=== PATIENT | male | born 1940 | race Caucasian/White ===

== ENCOUNTER 2016-09-03 09:10 | Inpatient (IN) | payer OTHER ==
[2016-08-05 11:49] VITALS: BMI 33.0
--- NOTE | 2016-08-05 12:24 | PAT Medication Instructions ---
Service Date Aug 05, 2016. Current Home Medication List Ascorbic Acid (Vitamin C), 500 MG PO NOON Aspirin (Aspirin Ec), 81 MG PO BID Atorvastatin (Lipitor), 40 MG PO HS Biotin (Biotin), 1,000 MCG PO QAM Coenzyme Q10 (Ubidecarenone) (Co Q-10), 200 MG PO QAM Xzypzopkodw-Tteqvrmoise-Mjn C- (Glucosamine Chondroitin), Unknown Dose PO QAM Metoprolol Tartrate (Lopressor) (Lopressor), 0.5 TAB PO HS Multivitamin (Multivitamin), 0.5 TAB PO BID Nitroglycerin (Nitrostat), 0.4 MG UT PRN Potassium Chloride (Potassium Chloride ER), Unknown Dose PO AC Psyllium (Metamucil), Unknown Dose PO QAM Ranitidine (Zantac), 150 MG PO BID Terazosin Hcl (Hytrin), 2 MG PO HS Valsartan/Hctz (Diovan Hct 320MG/25MG), 1 TAB PO QAM Zinc Gluconate (Zinc), 1 TAB PO NOON Medication Instructions For Your Scheduled Surgery - Continue as directed: Nitroglycerin (Nitrostat), 0.4 MG UT PRN - Instructions to be given by Cardiology: Aspirin (Aspirin Ec), 81 MG PO BID (*Check with Cardiology if okay to change to ONCE daily 1 week prior to surgery per surgeon's request) - Hold the following medications 2 weeks prior to surgery: Biotin (Biotin), 1,000 MCG PO QAM Coenzyme Q10 (Ubidecarenone) (Co Q-10), 200 MG PO QAM Llahryvopyv-Sjfasetwcrt-Ouy C- (Glucosamine Chondroitin), Unknown Dose PO QAM - Hold the following medications the morning of surgery: Valsartan/Hctz (Diovan Hct 320MG/25MG), 1 TAB PO QAM Multivitamin (Multivitamin), 0.5 TAB PO BID Psyllium (Metamucil), Unknown Dose PO QAM Zinc Gluconate (Zinc), 1 TAB PO NOON Potassium Chloride (Potassium Chloride ER), Unknown Dose PO AC Ascorbic Acid (Vitamin C), 500 MG PO NOON - Take the following medications the morning of surgery with a sip of water OTHERWISE NOTHING TO EAT OR DRINK AFTER MIDNIGHT: Ranitidine (Zantac), 150 MG PO BID - Take the following medications as scheduled the night before surgery: Atorvastatin (Lipitor), 40 MG PO HS Terazosin Hcl (Hytrin), 2 MG PO HS Metoprolol Tartrate (Lopressor) (Lopressor), 0.5 TAB PO HS Ranitidine (Zantac), 150 MG PO BID Multivitamin (Multivitamin), 0.5 TAB PO BID If you have any questions please call us at [phone] (Aurelia Alvarado PA-C) or [phone] or [phone]
[2016-08-05 12:41] LABS: BASO % 0.4 %; BASO ABS # 0.02 K/uL (0-0.2); COMPLETE YES; EOS % 4.6 %; HEMATOCRIT 40.6 % (42-52); IG% 0.2 %; LYMPH % 20.9 %; LYMPH ABS # 1.14 K/uL (1.2-3.4); MEAN CELL VOLUME 90.2 fL (80-100); MEAN CORPUSCULAR HEMOGLOBIN 31.3 pg (25-34); MEAN CORPUSCULAR HGB CONC 34.7 g/dl (32-36); MONO % 7.9 %; PLATELET COUNT 180 K/uL (130-400); WHITE BLOOD COUNT 5.45 K/uL (4.8-10.8)
[2016-08-05 12:45] LABS: URINE APPEARANCE CLEAR (CLEAR); URINE BILIRUBIN NEG (NEG); URINE COLOR YELLOW; URINE NITRITE NEG (NEG); URINE PH 6.5 (4.5-7.5); URINE SPECIFIC GRAVITY 1.004 (1.000-1.030); UROBILINOGEN NEG (NEG)
[2016-08-05 12:47] LABS: MANUAL MICROSCOPIC REQUIRED? NO; REVIEW REQ? NO
[2016-08-05 12:52] LABS: ESTIMATED AVERAGE GLUCOSE 128 mg/dl; HA1C FLAG Normal (Normal)
[2016-08-05 13:03] LABS: PARTIAL THROMBOPLASTIN RATIO 1.1; PROTHROMBIN TIME (PATIENT) 10.8 SECONDS (9.0-12.0)
[2016-08-05 13:24] LABS: BUN/CREATININE RATIO 14.6 (10-20); CREATININE 0.91 mg/dl (0.60-1.40); POTASSIUM 3.9 mmol/L (3.5-5.1)
[2016-08-05 13:37] LABS: CALCIUM 9.2 mg/dl (8.5-10.1)
--- NOTE | 2016-09-02 20:17 | HISTORY & PHYSICAL EXAMINATION ---
DATE OF ADMISSION: 09/03/2016 CHIEF COMPLAINT: Right knee pain. HISTORY OF PRESENT ILLNESS: The patient is a 75-year-old gentleman with known osteoarthritis about his right knee. He has had previous corticosteroid injections. He continues to have ongoing pain and disability with activities of daily living. He has pain with prolonged weightbearing and standing activities. He has difficulty kneeling, bending, or squatting activities. He now desires to proceed with right total knee arthroplasty. PAST MEDICAL HISTORY: Hypertension, hypercholesterolemia, coronary artery disease status post CABG, sleep apnea with CPAP use, questionable stroke or TIA related to his CABG procedure, skin cancer, status post Mohs surgery, acid reflux. PAST SURGICAL HISTORY: Tonsillectomy, appendectomy, vasectomy, 4-vessel CABG, meniscus surgery. MEDICATIONS: Lipitor 40 mg daily, Diovan HCT 320-25 daily, ranitidine 150 mg 2 times daily, metoprolol tartrate 25 mg 2 times daily, terazosin 5 mg daily, potassium citrate ER 10 mEq 2 times daily, CoQ10 daily, aspirin 81 mg daily, Centrum Silver daily, zinc 50 mg daily, vitamin C 500 mg daily, glucosamine daily, fish oil 300 mg 4 daily. ALLERGIES: ANTIVENOM, WHICH CAUSES HIVES. SOCIAL HISTORY AND REVIEW OF SYSTEMS: Noncontributory. PHYSICAL EXAMINATION: GENERAL: Well-nourished, well-developed male who appears stated age. HEENT: Normocephalic, atraumatic, extraocular movements intact, oropharynx pink and moist. NECK: Supple without adenopathy. LUNGS: Clear to auscultation bilaterally. HEART: Regular rate and rhythm. ABDOMEN: Soft, nontender, nondistended. EXTREMITIES: The upper extremity within normal limits. The right knee has a varus alignment. He has range of motion from 0-120 degrees. He has mild crepitus with range of motion. X-RAYS: X-rays were reviewed. He has a varus aligned knee. He has bone on bone arthritis of the medial compartment with complete loss of the joint space. He has mild degenerative change about the patellofemoral joint as well. ASSESSMENT: Right knee degenerative joint disease. PLAN: Risks versus benefits were discussed. Consent was obtained. The patient's primary care physician, Dr. Tarango from [facility] in [place]. His four slide machine operator is Dr. Alex Mayes. We will proceed with right total knee arthroplasty upon preoperative workup and medical clearance. BC
[2016-09-03] VITALS (8 sets, daily range): BP systolic 110–164; BP diastolic 64–92; PULSE 56–76; TEMP 36.4–36.7; O2SAT 91–97; Ht 182.9 cm; Wt 110.7 kg
[~2016-09-03] VITALS: Ht 182.9 cm; Wt 110.7 kg
[~2016-09-03 09:10] MED LIST: ACETAMINOPHEN 500 MG TAB PO SCH; ASCA500 PO; ASPI81TA28 PO; ATOR-24 PO; BIOT50006 PO; BUPIVACAINE 0.25% 30 ML VIAL ONE; BUPIVACAINE 0.5 % 5 MG/1 ML PF 10ML VIAL ONE; CEFAZOLIN 2000 MG/60 ML D5W IV SCH; COEN75CA PO; CeleBREX 200 MG CAP PO SCH; DEXAMETHASONE 4 MG TAB PO SCH; FAMOTIDINE 20 MG TAB PO SCH; GABAPENTIN 300 MG CAP PO SCH; GLUC1CAP35 PO; HYT/2 PO; LACTATED RINGER'S 1000ML IV SCH; METO25TA56 PO; METOCLOPRAMIDE HCL 10 MG TAB PO SCH; MULT-506 PO; NTRGSL/4 UT; OXYCODONE HCL 10 MG TABCR (OXYCONTIN) PO SCH; POTA-65 PO; PSYL1POW4 PO; ROPIVACAINE 5MG/ML 30 ML 150 MG, BUPIVACAINE/EPINEPHR 0.5% MPF 30 ML, KETOROLAC TROMETH... INFIL SCH; VALS320T2 PO; ZINC1TAB PO; ZNTT/150 PO
--- NOTE | 2016-09-03 09:39 | History & Physical Bridge Note ---
H&P Re-Evaluation Bridge Note: I have examined the patient, reviewed the History & Physical and in the interval since the performance of the History & Physical I have noted the following changes of clinical significance: No changes noted
[2016-09-03] MEDS ORDERED: LIDOCAINE HCL 2% 2 ML VIAL (20MG/ML) ONE (09:46)
[2016-09-03] MEDS ORDERED: FENTANYL CITRATE INJ 50 MCG/1 ML 2 ML VIAL ONE (09:46)
[2016-09-03] MEDS ORDERED: PROPOFOL IV EMULSION 10 MG/ML 20 ML VIAL IV ONE (09:46)
[2016-09-03] MEDS ORDERED: MIDAZOLAM HCL 1 MG/ML 2ML VIAL ONE (09:46)
[2016-09-03] MEDS ORDERED: ORTHO JOINT ANESTHETIC ONE (10:03)
[2016-09-03] MEDS ORDERED: EpHEDrine SULFATE INJ 50 MG/ML AMP ONE (10:54)
[2016-09-03] MEDS ORDERED: LACTATED RINGER'S 1000ML 1,000 ML IV PRN (11:03)
[2016-09-03] MEDS ORDERED: BACITRACIN 50000 UNIT VIAL IR ONE (11:13)
[2016-09-03] MEDS ORDERED: POVIDONE-IODINE OP SOLN 30 ML BTL TOP ONE (11:13)
[2016-09-03] MEDS ORDERED: FENTANYL CITRATE INJ 50 MCG/1 ML 2 ML VIAL IV PRN (11:15)
[2016-09-03] MEDS ORDERED: ONDANSETRON INJ 2 MG/ML 2 ML VIAL IV PRN ×2 (11:15→12:30)
[2016-09-03] MEDS ORDERED: NITROGLYCERIN 0.4 MG SL PER TAB CHARGE UT PRN (12:30)
[2016-09-03] MEDS ORDERED: MAGNESIUM HYDROXIDE SUSP 30 ML UDC PO PRN (12:30)
[2016-09-03] MEDS ORDERED: BISACODYL 10 MG SUPP PR PRN (12:30)
[2016-09-03] MEDS ORDERED: DiphenhydrAMINE HCL 50 MG/ML VIAL IV PRN (12:30)
[2016-09-03] MEDS ORDERED: MoRPHine SULFATE 2 MG/ML CARP IV PRN (12:30)
[2016-09-03] MEDS ORDERED: ZOLPIDEM TARTRATE 5 MG TAB PO PRN (12:30)
[2016-09-03] MEDS ORDERED: ALUMINUM/MAGNESIUM/SIMETH (MAALOX MAX) 30 ML UDC PO PRN (12:30)
--- NOTE | 2016-09-03 12:37 | OPERATIVE REPORT ---
DATE OF OPERATION: 09/03/2016 PREOPERATIVE DIAGNOSIS: Osteoarthritis right knee. POSTOPERATIVE DIAGNOSIS: Osteoarthritis right knee. PROCEDURE: OrthAlign right total knee arthroplasty. SURGEON: Dr. Ravi. SHEET ROCK NAILER: El Martinez PA-C. ANESTHESIA: Spinal. COMPLICATIONS: None. OPERATION AND FINDINGS: Following induction of spinal anesthesia, the patient's right leg was prepped and draped in usual sterile manner. Limb was exsanguinated with an Esmarch bandage and tourniquet was inflated to 300 mmHg. Longitudinal incision was made. Subcutaneous tissue was sharply dissected. Electrocautery was used for hemostasis. Aquamantys was used for hemostasis throughout the case. Median parapatellar incision was made. Patella was everted and the knee was flexed. Fat pad was removed and the anterior and posterior cruciate ligaments were removed. A Bovie was used to subperiosteally elevate the medial periosteum from the tibial metaphysis and this was held posteriorly using a blunt Hohmann. The OrthAlign computer guide was pinned to the anterior aspect of the tibia and it was set in flexion and extension and varus valgus. The proximal cut was made and the guide was removed. This bone fragment was removed using a bone tenaculum, sharp Hohmann, wide osteotome and a knife. Next, attention was turned to the femur where a drill tipped pin was placed in the femoral canal. The femoral cutting guide was placed and the computers were attached and appropriate flexion and varus valgus adjustments were made. The computers were removed after the baseplate was pinned into position and the distal femoral cut was made. Femur was chosen size 6 to be used and the femoral cuts were made. Bone fragments were all removed and the notch was cut using the appropriate guide and the osteotome. This bone fragment was removed. Lamina order entry was used to expose the menisci which were removed sharply. Next, the tibia was subluxed anteriorly and a size 5 tibia was chosen as the size to be used and it was pinned into position and was well aligned. A trial reduction was carried out and a size 11 poly was chosen as the size to be used. This was done after preparing the tibia to accept the tibial stem. Following this, the knee was brought to extension and the patella was reamed. A 39 patella was chosen the size to be used. The patella had no tendency to sublux with the no thumbs test. All trial components were removed. Orthomix was injected pericapsularly throughout the knee and the knee was thoroughly irrigated with pulsatile irrigation. Final components were obtained. Cement was mixed and after mixing the cement and drying of all bone ends the cementation of the implant was carried out. Excess cement was removed. The knee was held in extension while cement hardened. The wound was irrigated with both dilute Betadine bath as well as pulsatile irrigation and the wound was closed over a Hemovac. Accessory mechanism was closed using #1 Vicryl, subcutaneous tissue was closed using 0 Dexon was closed with bev. Sterile dressing of Adaptic, 4x4s, sterile Webril and double length Timothy was applied. The patient tolerated the procedure well. I attest to the content of the Intraoperative Record and any orders documented therein. Any exceptio ns are noted below.
--- NOTE | 2016-09-03 13:01 | DIAGNOSTIC IMAGING REPORT ---
RIGHT KNEE 2 VIEWS History: Right total knee arthroplasty. Degenerative arthritis. Postop. FINDINGS: The patient is status post a right total knee arthroplasty. The hardware is intact. No fracture or dislocation. Skin bev and surgical drains are in place. There is a 4 mm radiopaque metallic foreign body within the suprapatellar soft tissues. IMPRESSION: Right total knee arthroplasty. There is a 4 mm radiopaque metallic foreign body within the suprapatellar soft tissues. Electronically signed by: Celso Carlos M.D. 09/03/2016 12:59 PM
[2016-09-03] MEDS ORDERED: MoRPHine SULFATE 4 MG/ML 1 ML CARP\\VIAL IV PRN (14:00)
[2016-09-03] MEDS ORDERED: MoRPHine SULFATE 10 MG/ML CARP/VIAL IV PRN (14:00)
--- NOTE | 2016-09-03 14:32 | Anesthesiology Progress Note ---
Anesthesia Post Op Note Date & Time Sep 03, 2016 at 14:31 Vital Signs Pain Intensity: 0.0 Vital Signs Past 12 Hours Date Time Temp Pulse Resp B/P Pulse Ox O2 Delivery O2 Flow Rate FiO2 09/03/16 14:15 66 16 160/84 97 Nasal Cannula 3.0 09/03/16 13:43 56 16 151/86 96 Nasal Cannula 3.0 09/03/16 13:15 Nasal Cannula 2.0 09/03/16 13:15 36.4 66 16 154/73 97 Nasal Cannula 2.0 09/03/16 13:15 Nasal Cannula 2.0 09/03/16 12:55 36.4 58 16 134/81 97 Nasal Cannula 2 09/03/16 12:45 36.4 58 16 136/77 97 Nasal Cannula 2 09/03/16 12:35 58 16 129/73 96 Nasal Cannula 2 09/03/16 12:26 70 16 109/69 96 Nasal Cannula 2 09/03/16 12:18 36.7 62 16 108/62 98 Mask 10 09/03/16 09:38 36.6 65 20 164/90 92 Room Air Notes Mental Status: alert / awake / arousable, participated in evaluation Pt Amnestic to Procedure: Yes Nausea / Vomiting: adequately controlled Pain: adequately controlled Airway Patency, RR, SpO2: stable & adequate BP & HR: stable & adequate Hydration State: stable & adequate Neuraxial Anesthesia: was administered, sensory block is resolving Anesthetic Complications: no major complications apparent
[2016-09-03] MEDS: D5W AND 1/2NSS + 20MEQ KCL 1,000 ML IV SCH ×2 (14:35→20:38)
[2016-09-03] MEDS ORDERED: METO1TAB31 PO (14:39)
[2016-09-03] MEDS ORDERED: COEN1TAB3 PO (14:39)
[2016-09-03] MEDS ORDERED: NZRCR EXT (14:39)
[2016-09-03] MEDS ORDERED: GLUCTAB7 PO (14:39)
[2016-09-03] MEDS ORDERED: POTA20TA16 PO ×2 (14:39)
--- NOTE | 2016-09-03 15:01 | Medical Consult ---
Consultation Date of Consultation: Sep 03, 2016. Attending Physician: Butch Ravi M.D. Reason for Consultation: Postop medical management History of Present Illness Patient seen and examined with family at bedside. Pt is a 75 y/o male with PMH of CAD s/p CABG x4 in 2007 complicated by CVA without residual deficit, atrial flutter s/p cardioversion with resolution, HTN, HL, PEGGY on CPAP, GERD, who underwent planned right knee arthroplasty by Dr. Ravi today. Patient had longstanding R knee pain which failed conservative management including injections. He is feeling comfortable currently with postop pain controlled. Denies fever, dizziness, chest pain, SOB, abdominal pain, nausea, vomiting, recent urinary issues. He did not eat yet but is hungry and ready to eat. Past Medical/Surgical History Medical Problems: (1) Atrial flutter Permanent Comment: resolved s/p cardioversion Status: Chronic (2) CAD (coronary artery disease) Status: Chronic (3) Dyslipidemia Status: Chronic (4) GERD (gastroesophageal reflux disease) Status: Chronic (5) History of CVA (cerebrovascular accident) Permanent Comment: postop from CABG in 2007; no residual deficit Status: Chronic (6) HTN (hypertension) Status: Chronic (7) Lung nodule Status: Chronic (8) PEGGY (obstructive sleep apnea) Permanent Comment: on CPAP Status: Chronic Surgical Problems: (1) H/O vasectomy Status: Chronic (2) S/P appendectomy Status: Chronic (3) S/P CABG x 4 Permanent Comment: 2007 Status: Chronic (4) S/P carpal tunnel release Status: Chronic (5) S/P right knee arthroscopy Status: Chronic (6) S/P tonsillectomy and adenoidectomy Status: Chronic Family History Diabetes mellitus MOTHER FH: CAD (coronary artery disease) FATHER MOTHER Social History Smoking Status: Former Smoker (quit in ) Alcohol Use: occasionally (occasional 1 glass of wine) Marital Status: Housing Status: lives with significant other Allergies Coded Allergies: Antivenin Crotalidae Polyvalent (Verified Allergy, Unknown, HIVES, 09/03/16) "SNAKE ANTIVENIN" Home Medications Active Reported Ketoconazole 45 Appln/15 Gm Cr 1 Appln EXT BID PRN Klor-Con (Potassium Chloride) 20 Meq Tabcr 30 Meq PO BIDM Toprol Xl (Metoprolol Succinate) 25 Mg Tab 12.5 Mg PO HS 30 Days Glucosamine Chondroitin (Lysxmeuqvcn-Jvfbcpltrob-Xgb C-) 1 Tab Tab 500 Mg PO DAILY Coenzyme Q10 (Coenzyme Q10 (Ubidecarenone)) 100 Mg Tab 100 Mg PO DAILY Biotin 5,000 Mcg Sub 1,000 Mcg PO QAM Vitamin C (Ascorbic Acid) 500 Mg Tab 500 Mg PO DAILY Metamucil (Psyllium) Unknown Strength Pow 0.52 Gm PO QAM MIXES WITH 8 OZ GLASS OF H20 Multivitamin (Multivitamins) Tab 1 Tab PO DAILY Aspirin Ec (Aspirin) 81 Mg Tab 81 Mg PO BID Zinc (Zinc Gluconate) 50 Mg Tab 1 Tab PO DAILY Hytrin (Terazosin HCl) 2 Mg Cap 2 Mg PO HS Nitrostat (Nitroglycerin) 0.4 Mg Tab 0.4 Mg UT PRN Zantac (Ranitidine HCl) 150 Mg Tab 150 Mg PO BID Diovan Hct 320MG/25MG (HCTZ/Valsartan) 1 Tab Tab 1 Tab PO QAM Lipitor (Atorvastatin Calcium) 40 Mg Tab 40 Mg PO HS Current Inpatient Medications Current Inpatient Medications Medications (Trade) Dose Ordered Sig/Jazzy Route Start Time Stop Time Status Last Admin Dose Admin Cefazolin Sodium 60 ml @ 100 mls/hr PREOP IV 09/03/16 06:00 09/03/16 18:00 09/03/16 10:43 100 MLS/HR Lactated Ringer's (Lr 1000ml) 1,000 ml @ 60 mls/hr [id number] IV 09/03/16 06:00 09/03/16 22:39 09/03/16 09:47 60 MLS/HR Acetaminophen (Tylenol Tab) 1,000 mg PREOP PO 09/03/16 06:00 09/03/16 18:00 09/03/16 10:04 1,000 MG Celecoxib (CeleBREX CAP) 200 mg PREOP PO 09/03/16 06:00 09/03/16 18:00 09/03/16 10:04 200 MG Dexamethasone (Decadron Tab) 8 mg PREOP PO 09/03/16 06:00 09/03/16 18:00 09/03/16 10:03 8 MG Famotidine (Pepcid Tab) 20 mg PREOP PO 09/03/16 06:00 09/03/16 18:00 09/03/16 10:03 20 MG Gabapentin (Neurontin Cap) 300 mg PREOP PO 09/03/16 06:00 09/03/16 18:00 09/03/16 10:03 300 MG Metoclopramide HCl (Reglan Tab) 10 mg PREOP PO 09/03/16 06:00 09/03/16 18:00 09/03/16 10:03 10 MG Oxycodone HCl (Oxycontin Tab) 10 mg PREOP PO 09/03/16 06:00 09/03/16 18:00 09/03/16 10:04 10 MG Fentanyl Citrate (Fentanyl Inj) 25 mcg Q5M PRN IV 09/03/16 11:15 09/03/16 16:15 Ondansetron HCl 4 mg 4 mg ONE PRN IV 09/03/16 11:15 09/03/16 16:15 Lactated Ringer's (Lr 1000ml) 1,000 ml @ 150 mls/hr Q6H40M PRN IV 09/03/16 11:03 09/03/16 16:03 Atorvastatin Calcium (Lipitor Tab) 40 mg HS PO 09/03/16 21:00 10/03/16 20:59 Metoprolol Tartrate (Lopressor Tab) 12.5 mg HS PO 09/03/16 21:00 10/03/16 20:59 Nitroglycerin (Nitrostat Tab) 0.4 mg PRN PRN UT 09/03/16 12:30 10/03/16 12:29 Ranitidine HCl (zANTac TAB) 150 mg BID PO 09/03/16 21:00 10/03/16 20:59 Terazosin HCl (Hytrin Cap) 2 mg HS PO 09/03/16 21:00 10/03/16 20:59 HCTZ/Valsartan (Diovan Hct 160/ 12.5MG Tab) 1 tab QAM PO 09/04/16 09:00 10/04/16 08:59 Morphine Sulfate 2 mg 2 mg Q4HWA PRN IV 09/03/16 12:30 09/17/16 12:29 Potassium Chloride/Dextrose/ Sod Cl 1,000 ml @ 100 mls/hr Q10H IV 09/03/16 12:19 09/04/16 12:18 09/03/16 14:35 100 MLS/HR Cefazolin Sodium/ Dextrose (Ancef Iv/D5 50ml) 60 ml @ 100 mls/hr Q8H IV 09/03/16 18:00 09/04/16 02:35 Ketorolac Tromethamine (Toradol Inj) 15 mg Q6H IV. 09/03/16 18:00 09/04/16 17:59 Oxycodone HCl (Roxicodone Immediate Rel Tab) 1 TABLET FOR PAIN RATING... Q4H PRN PO 09/03/16 12:30 09/17/16 12:29 Oxycodone HCl (Oxycontin Tab) 10 mg Q12 PO 09/03/16 21:00 09/17/16 20:59 Acetaminophen (Tylenol Tab) 1,000 mg Q8H PO 09/03/16 14:00 10/03/16 13:59 Magnesium Hydroxide (Milk Of Magnesia Susp) 30 ml Q6H PRN PO 09/03/16 12:30 10/03/16 12:29 Bisacodyl (Dulcolax Supp) 10 mg DAILY PRN AK 09/03/16 12:30 10/03/16 12:29 Senna (Senokot Tab) 17.2 mg HS PO 09/03/16 21:00 10/03/16 20:59 Docusate Sodium (coLACE CAP) 100 mg BID PO 09/03/16 21:00 10/03/16 20:59 Diphenhydramine HCl (Benadryl Inj) 25 mg Q8H PRN IV 09/03/16 12:30 10/03/16 12:29 Al Hydrox/Mg Hydrox/Simethicone (Maalox Max Susp) 15 ml Q4H PRN PO 09/03/16 12:30 10/03/16 12:29 Zolpidem Tartrate (Ambien Tab) 5 mg HSZ PRN PO 09/03/16 12:30 10/03/16 12:29 Multivitamins (Multivitamin Tab) 1 tab QAM PO 09/04/16 09:00 10/04/16 08:59 Ondansetron HCl (Zofran Inj) 4 mg Q6H PRN IV 09/03/16 12:30 10/03/16 12:29 Ferrous Gluconate (Ferrous Gluconate Tab) 324 mg TIDM PO 09/03/16 17:45 10/03/16 17:59 Aspirin (Ecotrin Tab) 81 mg BID PO 09/03/16 21:00 10/03/16 20:59 Morphine Sulfate (MoRPHine SULFATE INJ) 4 mg Q4HWA PRN IV 09/03/16 14:00 09/17/16 13:59 Morphine Sulfate (MoRPHine SULFATE INJ) 6 mg Q4HWA PRN IV 09/03/16 14:00 09/17/16 13:59 Review of Systems Ten point review of systems performed with pertinent positives and negatives in HPI. All other systems negative. Physical Exam Date Time Temp Pulse Resp B/P Pulse Ox O2 Delivery O2 Flow Rate FiO2 09/03/16 14:15 66 16 160/84 97 Nasal Cannula 3.0 09/03/16 13:43 56 16 151/86 96 Nasal Cannula 3.0 09/03/16 13:15 Nasal Cannula 2.0 09/03/16 13:15 36.4 66 16 154/73 97 Nasal Cannula 2.0 09/03/16 13:15 Nasal Cannula 2.0 09/03/16 12:55 36.4 58 16 134/81 97 Nasal Cannula 2 09/03/16 12:45 36.4 58 16 136/77 97 Nasal Cannula 2 09/03/16 12:35 58 16 129/73 96 Nasal Cannula 2 09/03/16 12:26 70 16 109/69 96 Nasal Cannula 2 09/03/16 12:18 36.7 62 16 108/62 98 Mask 10 09/03/16 09:38 36.6 65 20 164/90 92 Room Air General Appearance: WD/WN, no apparent distress, + pertinent finding (pleasant alert cooperative 75 year old male, lying in bed, family at bedside) Head: normocephalic, atraumatic Eyes: normal inspection, sclerae normal ENT: hearing grossly normal Neck: supple, trachea midline Respiratory/Chest: lungs clear, normal breath sounds, no respiratory distress, no accessory muscle use Cardiovascular: regular rate, rhythm, no murmur Abdomen/GI: normal bowel sounds, non tender, soft Extremities/Musculoskelatal: no calf tenderness, no pedal edema, + pertinent finding (s/p right TKA with dressing and ice pack in place, drain with sanguinous drainage) Neurologic/Psych: alert, normal mood/affect, oriented x 3, + pertinent finding (sensation to light touch intact bilateral feet. able to flex/ extend ankles bilaterally) Skin: normal color, warm/dry Assessment & Plan S/P RIGHT TKA POD #[address] Ravi Doing well postoperatively Monitor daily H/H for sign of acute blood loss anemia Pain control and bowel regimen per ortho Continue incentive spirometry PT/ OT CAD S/P CABG Stable, no anginal symptoms Had neg stress test in 10/2015 done for preop clearance Continue beta desmond and statin Resume aspirin when acceptable by ortho HYPERTENSION BP is stable Continue metoprolol, terazosin, and valsartan Hold HCTZ while being hydrated with IVF's HISTORY OF AFLUTTER Resolved s/p cardioversion HX OF CVA No residual deficit Continue statin Resume ASA when acceptable by ortho PEGGY May use home CPAP GERD Continue Zantac DVT PROPHYLAXIS Per ortho Patient seen in collaboration with Dr. Mcgarry. Please see his addendum.
[2016-09-03] MEDS: OXYCODONE HCL IR 5 MG TAB (IMMEDIATE RELEASE) PO PRN (15:41)
[2016-09-03] MEDS: ACETAMINOPHEN 500 MG TAB PO SCH ×2 (15:41→23:06)
[2016-09-03] MEDS: FERROUS GLUCONATE 324 MG TAB PO SCH (17:56)
[2016-09-03] MEDS: CEFAZOLIN IV 2,000 MG in DEXTROSE 5% 50ML 50 ML IV SCH (17:57)
[2016-09-03] MEDS: POTASSIUM CHLORIDE 10 MEQ TABCR PO SCH (17:58)
[2016-09-03] MEDS: KETOROLAC TROMETHAMINE 15 MG/ML VIAL IV. SCH ×2 (17:58→23:06)
[2016-09-03] MEDS: RANITIDINE HCL 150 MG TAB PO SCH (20:39)
[2016-09-03] MEDS: OXYCODONE HCL 10 MG TABCR (OXYCONTIN) PO SCH (20:39)
[2016-09-03] MEDS: ASPIRIN 81 MG ECTAB PO SCH (20:39)
[2016-09-03] MEDS: METOPROLOL SUCC 25MG EXT REL TAB PO SCH (20:40)
[2016-09-03] MEDS: DOCUSATE SODIUM 100 MG CAP PO SCH (20:40)
[2016-09-03] MEDS: ATORVASTATIN 20 MG TAB PO SCH (20:41)
[2016-09-03] MEDS: SENNA 8.6 MG TAB PO SCH (20:41)
[2016-09-03] MEDS ORDERED: METOPROLOL TARTRATE 25 MG TAB PO SCH (21:00)
[2016-09-04] VITALS (8 sets, daily range): BP systolic 69–129; BP diastolic 41–80; PULSE 59–106; TEMP 36.3–36.5; O2SAT 92–98
[2016-09-04] MEDS: CEFAZOLIN IV 2,000 MG in DEXTROSE 5% 50ML 50 ML IV SCH (01:58)
[2016-09-04] MEDS: ACETAMINOPHEN 500 MG TAB PO SCH ×3 (05:47→20:54)
[2016-09-04] MEDS: KETOROLAC TROMETHAMINE 15 MG/ML VIAL IV. SCH ×2 (05:48→12:45)
[2016-09-04 06:41] LABS: MEAN CELL VOLUME 89.1 fL (80-100); MEAN CORPUSCULAR HEMOGLOBIN 30.6 pg (25-34); MEAN CORPUSCULAR HGB CONC 34.4 g/dl (32-36); MEAN PLATELET VOLUME 9.4 fL (7.4-10.4); PLATELET COUNT 169 K/uL (130-400); RED BLOOD COUNT 3.59 M/uL (4.7-6.1); WHITE BLOOD COUNT 10.71 K/uL (4.8-10.8)
[2016-09-04 07:24] LABS: BUN/CREATININE RATIO 16.3 (10-20); CALCIUM 8.2 mg/dl (8.5-10.1); CREATININE 1.3 mg/dl (0.60-1.40); POTASSIUM 4.5 mmol/L (3.5-5.1)
--- NOTE | 2016-09-04 07:36 | Orthopedic Progress Note ---
Orthopedic Progress Note Date of Service Sep 04, 2016. Subjective Post OP Day: 1 Reports: feeling well Objective N/V intact, dressing C/D/I (Hemovac in place), toes mobile Date Time Temp Pulse Resp B/P Pulse Ox O2 Delivery O2 Flow Rate FiO2 09/04/16 03:22 36.5 59 14 115/69 92 BiPAP 09/03/16 23:03 36.7 70 14 110/64 91 BiPAP 09/03/16 23:00 CPAP 09/03/16 19:33 36.4 76 16 155/80 91 Room Air 09/03/16 19:15 Room Air 09/03/16 16:16 36.4 72 16 163/92 93 Nasal Cannula 3.0 09/03/16 15:04 36.6 71 16 159/76 95 Nasal Cannula 3.0 09/03/16 14:55 Nasal Cannula 2.0 09/03/16 14:15 66 16 160/84 97 Nasal Cannula 3.0 09/03/16 13:43 56 16 151/86 96 Nasal Cannula 3.0 09/03/16 13:15 Nasal Cannula 2.0 09/03/16 13:15 36.4 66 16 154/73 97 Nasal Cannula 2.0 09/03/16 13:15 Nasal Cannula 2.0 09/03/16 12:55 36.4 58 16 134/81 97 Nasal Cannula 2 09/03/16 12:45 36.4 58 16 136/77 97 Nasal Cannula 2 09/03/16 12:35 58 16 129/73 96 Nasal Cannula 2 09/03/16 12:26 70 16 109/69 96 Nasal Cannula 2 09/03/16 12:18 36.7 62 16 108/62 98 Mask 10 09/03/16 09:38 36.6 65 20 164/90 92 Room Air Laboratory Results 24 Hours: Test 09/04/16 05:05 Hematocrit 32.0 % Hemoglobin 11.0 g/dL Assessment & Plan Assessment: 75 yo male stable POD #1 s/p right TKA Plan: 1. Med management 2. DVT prophylaxis- ASA, TEDs, SCDs 3. PT/OT 4. D/C planning- home w/ OPPT
[2016-09-04] MEDS: GLUCOSAMINE SULFATE 500 MG CAP PO SCH (08:40)
[2016-09-04] MEDS: FERROUS GLUCONATE 324 MG TAB PO SCH ×3 (08:40→17:52)
[2016-09-04] MEDS: RANITIDINE HCL 150 MG TAB PO SCH ×2 (08:40→20:52)
[2016-09-04] MEDS: ASCORBIC ACID 500 MG TAB PO SCH (08:41)
[2016-09-04] MEDS: VALSARTAN 80 MG TAB PO SCH (08:41)
[2016-09-04] MEDS: POTASSIUM CHLORIDE 10 MEQ TABCR PO SCH ×2 (08:41→17:53)
[2016-09-04] MEDS: DOCUSATE SODIUM 100 MG CAP PO SCH ×2 (08:42→20:51)
[2016-09-04] MEDS: MULTIVITAMIN TAB PO SCH (08:42)
[2016-09-04] MEDS: OXYCODONE HCL 10 MG TABCR (OXYCONTIN) PO SCH ×2 (08:50→20:53)
[2016-09-04] MEDS: OXYCODONE HCL IR 5 MG TAB (IMMEDIATE RELEASE) PO PRN ×2 (08:51→20:53)
[2016-09-04] MEDS ORDERED: NON-FORMULARY MEDICATION (Coenzyme Q10 (Ubidecarenone) (Co Q-10) 200 MG) PO SCH (09:00)
[2016-09-04] MEDS ORDERED: COENZYME Q10 100 MG PO SCH (09:00)
[2016-09-04] MEDS ORDERED: VALSARTAN/HCTZ 160/12.5 MG TAB PO SCH (09:00)
[2016-09-04] MEDS ORDERED: ZINC GLUCONATE PO SCH (09:00)
[2016-09-04] MEDS ORDERED: MULTIVITAMIN TAB PO SCH (09:00)
[2016-09-04] MEDS ORDERED: NON-FORMULARY MEDICATION (Biotin 1,000 MCG) PO SCH (09:00)
--- NOTE | 2016-09-04 09:09 | Anesthesiology Progress Note ---
Anesthesia Post Op Note Date & Time Sep 04, 2016 at 09:08 Vital Signs Pain Intensity: 5.0 Vital Signs Past 12 Hours Date Time Temp Pulse Resp B/P Pulse Ox O2 Delivery O2 Flow Rate FiO2 09/04/16 08:29 95 Room Air 09/04/16 08:00 36.5 60 18 120/80 95 Room Air 09/04/16 07:40 Room Air 09/04/16 03:22 36.5 59 14 115/69 92 BiPAP 09/03/16 23:03 36.7 70 14 110/64 91 BiPAP 09/03/16 23:00 CPAP Notes Mental Status: alert / awake / arousable, participated in evaluation Pt Amnestic to Procedure: Yes Nausea / Vomiting: adequately controlled Pain: adequately controlled Airway Patency, RR, SpO2: stable & adequate BP & HR: stable & adequate Hydration State: stable & adequate Anesthetic Complications: no major complications apparent
[2016-09-04] MEDS: ASPIRIN 81 MG ECTAB PO SCH ×2 (09:10→20:51)
[2016-09-04] MEDS: PSYLLIUM 58.6% PWD PACK S\\F PO SCH (11:28)
--- NOTE | 2016-09-04 17:02 | Discharge Instructions ---
Discharge Instructions Admission Reason for Admission: [facility] Knee Osteoarthritis Discharge Discharge Diagnosis / Problem: right total knee replacement Discharge Goals Goal(s): Decrease discomfort, Improve function, Increase independence Activity Recommendations Activity Limitations: as noted below Weightbearing Status: Right weightbearing (as tolerated) . Instructions / Follow-Up Instructions / Follow-Up ACTIVITY RECOMMENDATIONS: SELF CARE INSTRUCTIONS AFTER TOTAL KNEE REPLACEMENT A. You may need to continue a physical therapy program after discharge from the hospital. There are several options available to you. Your doctor will assist you in selecting the best one for you. 1. An out-patient facility 2 to 3 times a week for therapy or home therapy. 2. Continue working on all exercises taught to you in the hospital. Your goals should be to increase bending of your knee to 90 degrees and beyond and to fully straighten your knee. B. You may progress at your own pace from walking with a walker or crutches to a cane; then to no assistive devices. C. Make walking a part of your daily routine. Be up as much as comfortable with rest periods throughout the day. Rest with leg elevation is very important. Use the ice wrap frequently for the first 3-4 weeks. D. There are no restrictions on activities. You may ride in a car, shop, participate in assembler camper and all social activities. E. Wear the long elastic stockings (LEXIE hose) 20 hours a day for 2 weeks after surgery. They can be removed several times a day for laundering and for a bath. F. You may shower, no tub baths until cleared by your doctor. SPECIAL CARE INSTRUCTIONS: VERY IMPORTANT TO READ AND REVIEW A. There are a few signs you need to watch for after you are home. Call [facility] [place] if you notice any of the followin. Increased severe knee pain. Some pain is expected especially when you exercise. 2. Increased swelling in your leg or knee; pain or swelling of the calf muscle in either lower leg. 3. Any fluid drainage from the incision. 4. Shortness of breath or chest pain. B. Please call [facility] [place] at if you have any concerns or questions about your operation or recovery. The doctor or his nurse will return your call promptly. C. You must take antibiotics before dental work, bladder, bowel or other surgery. Your doctor will provide you with a permanent care to carry describing this precaution. IMPORTANT: * REMEMBER TO TAKE ASPIRIN, 81 MG, TWICE DAILY FOR 4 WEEKS UNLESS OTHERWISE DIRECTED. THIS IS YOUR BLOOD THINNER. * HIGH RISK PATIENTS MAY BE PRESCRIBED A STRONGER BLOOD THINNER. THIS WILL BE PROVIDED AT DISCHARGE. * CALL IF INCREASED PAIN, REDNESS, DRAINAGE OR FEVER GREATER THAT 101. * WEAR LEXIE HOSE 20 HOURS PER DAY FOR 2 WEEKS. * YOU MAY HAVE A LARGE BAND-AID LIKE DRESSING (SILVERON). THIS WILL REMAIN ON YOUR INCISION FOR 7 DAYS, THEN CAN BE REMOVED. IF INCISION IS LEAKING THROUGH DRESSING, CALL THE OFFICE . FOLLOW UP VISIT: If appointment is not already scheduled: Please call [facility] to make a follow-up appointment for 2 weeks after your surgery at . Current Hospital Diet Patient's current hospital diet: AHA Diet (Heart Healthy) Discharge Diet Recommended Diet: Regular Diet Procedures Procedures Performed: Right Total Knee Arthroplasty cemented Pending Studies Studies pending at discharge: no Laboratory Results Hemoglobin A1c Test 08/05/16 12:23 Range/Units Estimated Average Glucose 128 mg/dl Hemoglobin A1c 6.1 H 4.5-5.6 % Medical Emergencies . Who to Call and When: Medical Emergencies: If at any time you feel your situation is an emergency, please call [phone] immediately. . Non-Emergent Contact Non-Emergency issues call your: Primary Care Provider, Surgeon . "Provider Documentation" section prepared by Willian Castillo. VTE Core Measure Inpt VTE Proph given/why not?: Other Anticoagulation (ASA 81mg po bid x 1 month ), T.E.D. Stockings, SCD's
[2016-09-04] MEDS: SENNA 8.6 MG TAB PO SCH (20:52)
[2016-09-04] MEDS: ATORVASTATIN 20 MG TAB PO SCH (20:52)
[2016-09-04] MEDS: METOPROLOL SUCC 25MG EXT REL TAB PO SCH (20:52)
[2016-09-05] MEDS: ACETAMINOPHEN 500 MG TAB PO SCH (05:43)
--- NOTE | 2016-09-05 06:29 | Orthopedic Progress Note ---
Orthopedic Progress Note Date of Service Sep 05, 2016. Subjective Post OP Day: 2 Reports: feeling well, Denies: SOB, calf pain, chest pain, complaints, light headedness, nausea / vomiting, pain controlled w PO medications, using SHAPE HAND Objective calves soft nontender, N/V intact, capillary refill less than 2 sec., dressing C /D/I (silverlon intact), A&O x3, toes mobile Date Time Temp Pulse Resp B/P Pulse Ox O2 Delivery O2 Flow Rate FiO2 09/04/16 23:07 36.5 63 16 129/73 95 Room Air 09/04/16 20:48 63 127/71 09/04/16 19:10 Room Air 09/04/16 14:52 36.4 68 14 117/67 94 Room Air 09/04/16 12:00 36.3 63 18 120/63 96 Room Air 09/04/16 11:08 98 09/04/16 08:29 95 Room Air 09/04/16 08:00 36.5 60 18 120/80 95 Room Air 09/04/16 07:40 Room Air Assessment & Plan Assessment: 75 yo male stable POD #2 s/p right TKA Plan: 1. Med management 2. DVT prophylaxis- ASA, TEDs, SCDs 3. PT/OT 4. D/C planning- home w/ OPPT Discharge Planning Discharge Planning: home DVT Prophylaxis: TEDs, SCDs, ASA Therapy: Physical Therapy
[2016-09-05] MEDS ORDERED: CLC100 PO (06:34)
[2016-09-05] MEDS ORDERED: ONDA8TAB6 PO (06:34)
[2016-09-05] MEDS ORDERED: OXYSR10 PO (06:34)
[2016-09-05] MEDS ORDERED: RXC5 PO (06:34)
[2016-09-05] MEDS ORDERED: ACET-1138 PO (06:34)
[2016-09-05 06:43] VITALS: BP 115/57; PULSE 67; TEMP 36.6; O2SAT 94
[2016-09-05] MEDS: FERROUS GLUCONATE 324 MG TAB PO SCH (07:20)
[2016-09-05] MEDS: MULTIVITAMIN TAB PO SCH (07:21)
[2016-09-05] MEDS: ASPIRIN 81 MG ECTAB PO SCH (07:21)
[2016-09-05] MEDS: PSYLLIUM 58.6% PWD PACK S\\F PO SCH (07:21)
[2016-09-05] MEDS: RANITIDINE HCL 150 MG TAB PO SCH (07:21)
[2016-09-05] MEDS: GLUCOSAMINE SULFATE 500 MG CAP PO SCH (07:21)
[2016-09-05] MEDS: ASCORBIC ACID 500 MG TAB PO SCH (07:22)
[2016-09-05] MEDS: VALSARTAN 80 MG TAB PO SCH (07:22)
[2016-09-05] MEDS: POTASSIUM CHLORIDE 10 MEQ TABCR PO SCH (07:22)
[2016-09-05] MEDS: DOCUSATE SODIUM 100 MG CAP PO SCH (07:23)
[2016-09-05] MEDS: OXYCODONE HCL 10 MG TABCR (OXYCONTIN) PO SCH (07:26)
[2016-09-05 07:39] VITALS: O2SAT 96
[2016-09-05 07:45] VITALS: BP 122/62; PULSE 64; TEMP 36.7; O2SAT 96
[2016-09-05 10:32] VITALS: BP 122/62; PULSE 64; TEMP 36.7; O2SAT 96
--- NOTE | 2016-09-09 16:37 | DISCHARGE SUMMARY ---
DISCHARGE DIAGNOSIS: Degenerative joint disease, right knee. SECONDARY DIAGNOSES: Hypertension, hypercholesterolemia, CAD status post CABG, sleep apnea with CPAP use, questionable history of TIA versus CVA in the past related to his CABG procedure, skin carcinoma with history of Mohs surgery, GERD. CONSULTS: ROBERTO Lockwood/Dr. Zeferino M.D. COMPLICATIONS: None. PROCEDURES: Right total knee arthroplasty performed by Dr. Ravi on 09/03/2016. BRIEF HISTORY: As dictated in history and physical. HOSPITAL SUMMARY: The patient was admitted on the above date and had the above known surgery performed which he tolerated well. On the first postoperative day, the patient was feeling well. Neurovascularly intact. Dressings clean, dry and intact. Toes were mobile. Vital signs were stable and he was afebrile. Hemoglobin was 11.0 and started on physical therapy protocol and continued on DVT prophylaxis and pain management. By the second postoperative day, patient was feeling well and had no complaints. Calves were soft, nontender, neurovascularly intact. Dressings clean, dry and intact. Toes were mobile. Vital signs were stable. He was remaining medically stable as well as orthopedically stable. It was felt he could be discharged to home with outpatient PT on 09/05/2016. For further review, please see chart. LAB AND X-RAY DATA: As per chart. DISCHARGE INSTRUCTIONS: The patient was discharged to home in satisfactory condition on 09/05/2016. DIET: Regular. ACTIVITY: Follow TK instruction sheets and special care instructions as noted. Follow up with Dr. Ravi in 2 weeks. The patient to call for appointment if one has not been made for you. DISCHARGE MEDICATIONS: Acetaminophen 1000 mg p.o. q. 8 hours, Colace 100 mg p.o. b.i.d., Zofran 8 mg p.o. q. 8 hours p.r.n., OxyContin 10 mg p.o. q. 12 hours, oxycodone 5-10 mg p.o. q. 4 hours p.r.n. Resume home meds as listed.
[2017-04-20] MEDS ORDERED: BIOT1TAB5 PO (09:19)
[2017-04-20] MEDS ORDERED: POTA1CAP53 PO (09:19)
== END 2016-09-05 11:20 | disposition home or self-care (01) | DRG 470 ==
LOC: ENRESERVTM → ENRESERVDT → C.ACU 09:10 → C.3E 09:37
PROC: 0SRC0J9 Replacement of Right Knee Joint with Synthetic Substitute, Cemented, Open Approach (ICD-10-PCS; principal; 2016-09-03 11:15)
DX: M17.11 Unilateral primary osteoarthritis, right knee (principal); I10 Essential (primary) hypertension; I25.10 Atherosclerotic heart disease of native coronary artery without angina pectoris; E78.00 Pure hypercholesterolemia, unspecified; K21.9 Gastro-esophageal reflux disease without esophagitis; G47.33 Obstructive sleep apnea (adult) (pediatric); Z79.899 Other long term (current) drug therapy; Z79.82 Long term (current) use of aspirin; Z95.1 Presence of aortocoronary bypass graft; Z86.73 Personal history of transient ischemic attack (TIA), and cerebral infarction without residual deficits; Z85.828 Personal history of other malignant neoplasm of skin; Z87.891 Personal history of nicotine dependence; Z82.49 Family history of ischemic heart disease and other diseases of the circulatory system

== ENCOUNTER → 2017-04-02 | Outpatient (CLI) | payer OTHER ==
[~2017-04-02] MED LIST changes: +ACET-1138 PO; -ACETAMINOPHEN 500 MG TAB PO SCH; +BIOT1TAB5 PO; -BUPIVACAINE 0.25% 30 ML VIAL ONE; -BUPIVACAINE 0.5 % 5 MG/1 ML PF 10ML VIAL ONE; -CEFAZOLIN 2000 MG/60 ML D5W IV SCH; +CLC100 PO; +COEN1TAB3 PO; -COEN75CA PO; -CeleBREX 200 MG CAP PO SCH; -DEXAMETHASONE 4 MG TAB PO SCH; -FAMOTIDINE 20 MG TAB PO SCH; -GABAPENTIN 300 MG CAP PO SCH; -GLUC1CAP35 PO; +GLUCTAB7 PO; -LACTATED RINGER'S 1000ML IV SCH; +METO1TAB31 PO; -METO25TA56 PO; -METOCLOPRAMIDE HCL 10 MG TAB PO SCH; +NZRCR EXT; +OPTIRAY 320 IV PRN; -OXYCODONE HCL 10 MG TABCR (OXYCONTIN) PO SCH; +OXYSR10 PO; -POTA-65 PO; +POTA1CAP53 PO; +POTA20TA16 PO; -ROPIVACAINE 5MG/ML 30 ML 150 MG, BUPIVACAINE/EPINEPHR 0.5% MPF 30 ML, KETOROLAC TROMETH... INFIL SCH; +RXC5 PO
--- NOTE | 2017-04-02 15:39 | DIAGNOSTIC IMAGING REPORT ---
CT ANGIOGRAM OF THE CHEST CLINICAL HISTORY: Atypical chest pain COMPARISON STUDY: No previous studies for comparison. TECHNIQUE: Following the IV administration of 93 mL of Optiray-320, CT angiogram of the thorax was performed from the thoracic inlet to the lung bases utilizing the pulmonary embolus protocol. Images are reviewed in the axial, sagittal, and coronal planes. IV contrast was administered without complication. MIP imaging was performed. A dose lowering technique was utilized adhering to the principles of ALARA. CT DOSE: 547.80 mGy.cm FINDINGS: Images to the upper abdomen reveal an indeterminate 17 mm upper pole left renal mass. There is also indeterminate 8 mm right renal lesion. A dedicated renal CT scan or renal MRI is recommended in follow-up. No pathologically enlarged axillary mediastinal or hilar lymph nodes were visualized. The ascending thoracic aorta measures 4 cm in diameter. There are coronary artery calcifications present. No central emboli are visualized. Evaluation the lower lobe pulmonary arteries is limited due to respiratory motion artifact. There is an equivocal small subsegmental filling defect within a right lower lobe pulmonary artery branch although this is conceivably artifactual. Correlation with serial leg ultrasonography is recommended. No pleural effusions are visualized. There is a solid 12 mm right upper lobe pulmonary nodule. This is rather dense and likely post inflammatory. Also evident is a 3 mm right lower lobe pulmonary nodule as visualized in image #[id number]. IMPRESSION: 1. No central pulmonary emboli identified 2. Equivocal tiny subsegmental pulmonary artery filling defect within a right lower lobe artery branch. It is possible this is artifactual given the associated respiratory motion artifact. Correlation with serial leg ultrasonography is suggested. 3. Indeterminate 17 mm upper pole left renal mass. A dedicated renal CT scan or renal MRI is recommended in follow-up 4. 12 mm solid right upper lobe pulmonary nodule. This is rather dense and is likely postinflammatory Electronically signed by: Juwan Lund M.D. 04/02/2017 3:37 PM Dictated Date/Time: 04/02/2017 3:27 PM
== END | disposition home or self-care (01) ==
LOC: C.CTS 15:03
PROVIDERS: ATTEND Internal Medicine Cardiovascular Disease
DX: I20.9 Angina pectoris, unspecified (principal); Z95.1 Presence of aortocoronary bypass graft; R09.1 Pleurisy; R07.9 Chest pain, unspecified; N28.89 Other specified disorders of kidney and ureter; R91.1 Solitary pulmonary nodule; R91.8 Other nonspecific abnormal finding of lung field

== ENCOUNTER → 2017-04-28 | Day surgery (SDC) | payer OTHER ==
[2017-04-20 09:21] VITALS: Ht 182.9 cm; Wt 108.2 kg
[~2017-04-28] VITALS: Ht 182.9 cm; Wt 108.2 kg
[~2017-04-28] MED LIST changes: +500ML BSS 0.3ML EPI 1:1000PF IRRIG ONE; +ACETAMINOPHEN 325 MG TAB PO PRN; +AMVISC PLUS 0.8ML SYRINGE INT OCU ONE; +ATROPINE SULFATE 0.1 MG/ML 5ML SYR IV PRN; +BSS FLUSH ONE; +ENDOCOAT 0.85ML SYRINGE INT OCU ONE; +EpHEDrine SULFATE INJ 50 MG/ML AMP IV PRN; +EpINEphrine INJ 1MG/ML AMP 1 MG/ML AMP ONE; +LACTATED RINGER'S 1000ML 500 ML IV SCH; +LIDOCAINE 4% OP SOLN DROP CHARGE ONE; +LIDOCAINE 4% OP SOLN DROP CHARGE OPL SCH; +LIDOCAINE HCL 1% MPF 2 ML VIAL ONE; +MIDAZOLAM HCL 1 MG/ML 2ML VIAL ONE; +MIX: 4ML BSS 1ML EPI 1:1000 PF TOP ONE; +MOXIFLOXACIN OPH SOLN PER DROP CHARGE ONE; -OPTIRAY 320 IV PRN; +POVIDONE-IODINE OP SOLN 30 ML BTL ONE; +PROPARACAINE 0.5% OP SOLN PER DROP CHARGE OPL SCH; +TOBRAMYCIN/DEXAMETHASONE OPH OINT PER APPLN CHARGE ONE
[2017-04-28] MEDS: PHENYLEPHRINE HCL 2.5% OP SOLN PER DROP CHARGE OPL SCH ×3 (08:31→08:41)
[2017-04-28] MEDS: TROPICAMIDE 1% OP SOLN PER DROP CHARGE OPL SCH ×3 (08:32→08:42)
[2017-04-28] MEDS: CYCLOPENTOLATE HCL 1% OP SOLN PER DROP CHARGE OPL SCH ×3 (08:33→08:43)
[2017-04-28] MEDS: MOXIFLOXACIN OPH SOLN PER DROP CHARGE OPL SCH ×3 (08:34→08:44)
--- NOTE | 2017-04-28 09:46 | [facility] Post Operative Brief Note ---
Immediate Operative Summary Operative Date Apr 28, 2017. Pre-Operative Diagnosis Left Eye Cataract Post-Operative Diagnosis Same Procedure(s) Performed Left Eye Cataract Phacoemulsification With Intraocular Lens Implant Surgeon Dr. Vega Regroover Surgeon(s) None Estimated Blood Loss None Findings left cataract Specimens None Complication(s) None Disposition
--- NOTE | 2017-04-28 09:48 | [facility] Operative Report ---
Operative Report Date of Service Apr 28, 2017. Operative Report DATE OF OPERATION: 04/28/17 PREOPERATIVE DIAGNOSIS: Senile nuclear cataract and astigmatism, left eye POSTOPERATIVE DIAGNOSIS: Senile nuclear cataract and astigmatism, left eye PROCEDURE PERFORMED: Phacoemulsification with toric intraocular lens implantation, left eye SURGEON: Dr. James Vega ANESTHESIA: Topical with 1% intracameral lidocaine and monitored anesthesia care COMPLICATIONS: None DESCRIPTION OF PROCEDURE: After positively identifying the patient both verbally and by wristband in the preoperative area, the left eye was marked as the operative eye. Using a Robomarker, the 166 degree axis was marked after placing a drop of proparacaine. The patient was then brought back to the operating room by the anesthesia and nursing staff where they were given a drop of tetracaine and betadine into the operative eye. They were then sterilely prepped and draped in the standard fashion typical for ophthalmic surgery. Steri-strips were placed along the upper eyelids to keep the lashes back, and a lid speculum was placed into the operative eye. At this point, a documented time out was performed with members of the ophthalmology, nursing, and anesthesia staffs all agreeing upon the correct patient, correct location for surgery, correct procedure, and correct type and power of intraocular lens to be implanted. The microscope was then swung into position. Then, a paracentesis wound was made using a sideport blade. Then, in sequence, 1% preservative-free lidocaine followed by Endocoat viscoelastic was injected into the anterior chamber. Next , the main incision was made with a keratome blade in triplanar fashion. A Malyugin ring was inserted due to poor pupil dilation. A sharp cystotome was introduced into the eye and used to create a tear in the anterior capsule, which was directed into a continuous curvilinear capsulorrhexis using Utrata forceps. Hydrodissection was then performed with BSS on a flat-tip cannula. Next, the phacoemulsification handpiece was introduced into the eye and used to remove the nucleus in a [id number] fashion. This was done without complication and then the irrigation-aspiration handpiece was introduced into the eye and used to remove all remaining cortical and epinuclear material. Amvisc was then injected into the anterior chamber as well as into the capsular bag and using the lens injector system, a [id number] 21.5 D lens, serial number [id number], and expiration date 01/2020 was injected into the capsular bag and rotated into the correct position to correctly line up with the toric marking. Next, the irrigation-aspiration handpiece was used to remove Amvisc from behind the lens. The Malyugin ring was then removed, and further I/A was done to remove the remaining Amvisc. BSS was used to hydrate the main wound, and then BSS was injected into the paracentesis site to reach physiologic pressure and then the main wound was checked and found to be watertight. The patient was given drops of Vigamox and tobradex ointment into the operative eye, and then the surrounding area was cleaned and dried. A clear plastic shield was placed over the eye and the patient was then sat up and taken from the operating room by the anesthesia staff having tolerated the procedure well and suffering no complications. DISPOSITION: The patient was returned to the recovery room in stable condition. I attest to the content of the Intraoperative Record and any orders documented therein. Any exceptions are noted below.
[2017-04-28 09:49] VITALS: TEMP 36.5
--- NOTE | 2017-04-28 09:49 | Discharge Instructions-SurgCtr ---
Discharge Instructions Date of Service Apr 28, 2017. Visit Reason for Visit: Cataract Left Eye Discharge Discharge Diagnosis / Problem: left cataract Discharge Goals Goal(s): Decrease discomfort, Improve function Activity Recommendations Activity Limitations: as noted below Anesthesia . Post Anesthesia Instructions: If you have had General Anesthesia or IV Sedation: * Do not drive today. * Resume driving when surgeon permits. * Do not make important decisions or sign legal documents today. * Call surgeon for: 1. Temperature elevations greater than 101 degrees F. 2. Uncontrollable pain. 3. Excessive bleeding. 4. Persistent nausea and vomiting. 5. Medication intolerance (nausea, vomiting or rash). * For nausea and vomiting use only clear liquids such as: tea, soda, bouillon until nausea subsides, then gradually increase diet as tolerated. * If you have any concerns or questions, call your surgeon's office. If physician is unavailable and it is an emergency, call 911 or go to the nearest emergency room. . Instructions / Follow-Up Instructions / Follow-Up ACTIVITY RECOMMENDATIONS: * Light activities. * You may walk outside, read, watch television. * You may notice redness on the white part of the eye and some blurry vision - this is normal. MEDICATIONS: Resume previous medications unless instructed otherwise by your surgeon. Start all eye drops at 12 pm today: * Eye drops (today): Prednisone - one drop in operative eye every 2 hours while awake Ofloxacin - one drop in operative eye every 2 hours while awake Bromfenac - one drop in operative eye daily SPECIAL CARE INSTRUCTIONS: * Tape plastic shield over eye to sleep at night. Call your doctor at with any concerns or problems. FOLLOW UP VISIT: Follow-up with Dr Vega at [facility] as scheduled. Diet Recommendations Home Diet: no limitations Procedures Procedures Performed: Left Eye Cataract Phacoemulsification With Intraocular Lens Implant Pending Studies Studies pending at discharge: no Medical Emergencies . Who to Call and When: Medical Emergencies: If at any time you feel your situation is an emergency, please call 911 immediately. . Non-Emergent Contact Non-Emergency issues call your: Surgeon . . "Provider Documentation" section prepared by James Vega. .
--- NOTE | 2017-04-28 09:55 | Anesthesia Progress Nt - [facility] ---
Anesthesia Post Op Note Date & Time Apr 28, 2017 at 09:55 Vital Signs Pain Intensity: 0 Vital Signs Past 12 Hours Date Time Temp Pulse Resp B/P (MAP) Pulse Ox O2 Delivery O2 Flow Rate FiO2 04/28/17 09:49 36.5 58 20 152/78 (102) 95 Room Air 04/28/17 08:27 36.1 73 18 165/90 (115) 95 Room Air Notes Mental Status: alert / awake / arousable, participated in evaluation Pt Amnestic to Procedure: Yes Nausea / Vomiting: adequately controlled Pain: adequately controlled Airway Patency, RR, SpO2: stable & adequate BP & HR: stable & adequate Hydration State: stable & adequate Anesthetic Complications: no major complications apparent
[2017-04-28 10:06] VITALS: BP 147/79; PULSE 56; O2SAT 96
== END | disposition home or self-care (01) ==
LOC: X.SURG 08:14
PROVIDERS: ATTEND Ophthalmology
DX: H25.12 Age-related nuclear cataract, left eye (principal); H52.202 Unspecified astigmatism, left eye; I10 Essential (primary) hypertension; E78.00 Pure hypercholesterolemia, unspecified; I25.10 Atherosclerotic heart disease of native coronary artery without angina pectoris; Z95.1 Presence of aortocoronary bypass graft; Z87.891 Personal history of nicotine dependence; Z79.899 Other long term (current) drug therapy

== ENCOUNTER → 2017-05-12 | Day surgery (SDC) | payer OTHER ==
[2017-05-11 08:27] VITALS: Ht 182.9 cm; Wt 108.2 kg
[~2017-05-12] VITALS: Ht 182.9 cm; Wt 108.2 kg
[~2017-05-12] MED LIST changes: -ACET-1138 PO; -BIOT50006 PO; -CLC100 PO; -LIDOCAINE 4% OP SOLN DROP CHARGE OPL SCH; +LIDOCAINE 4% OP SOLN DROP CHARGE OPR SCH; +ONDANSETRON INJ 2 MG/ML 2 ML VIAL IV PRN; -OXYSR10 PO; -POTA20TA16 PO; -PROPARACAINE 0.5% OP SOLN PER DROP CHARGE OPL SCH; +PROPARACAINE 0.5% OP SOLN PER DROP CHARGE OPR SCH; -RXC5 PO
[2017-05-12] MEDS: PHENYLEPHRINE HCL 2.5% OP SOLN PER DROP CHARGE OPR SCH ×3 (08:35→08:44)
[2017-05-12] MEDS: TROPICAMIDE 1% OP SOLN PER DROP CHARGE OPR SCH ×3 (08:36→08:45)
[2017-05-12] MEDS: CYCLOPENTOLATE HCL 1% OP SOLN PER DROP CHARGE OPR SCH ×3 (08:37→08:46)
[2017-05-12] MEDS: MOXIFLOXACIN OPH SOLN PER DROP CHARGE OPR SCH ×3 (08:38→08:47)
--- NOTE | 2017-05-12 09:44 | [facility] Post Operative Brief Note ---
Immediate Operative Summary Operative Date May 12, 2017. Pre-Operative Diagnosis Right eye cataract Post-Operative Diagnosis Same as preop Procedure(s) Performed Right Cataract Phacoemulsification With Intraocular Lens Implant Surgeon Dr. Vega Director Of Home Health Services Surgeon(s) None Estimated Blood Loss 0 mL Findings right cataract Specimens None Complication(s) None Disposition
--- NOTE | 2017-05-12 09:45 | [facility] Operative Report ---
Operative Report Date of Service May 12, 2017. Operative Report Phaco with monofocal IOL DATE OF OPERATION: 05/12/17 PREOPERATIVE DIAGNOSIS: Senile nuclear cataract, right eye POSTOPERATIVE DIAGNOSIS: Senile nuclear cataract, right eye PROCEDURE PERFORMED: Phacoemulsification with intraocular lens implantation, right eye SURGEON: Dr. James Vega ANESTHESIA: Topical with 1% intracameral lidocaine and monitored anesthesia care COMPLICATIONS: None DESCRIPTION OF PROCEDURE: After positively identifying the patient both verbally and by wristband in the preoperative area, the right eye was marked as the operative eye. The patient was then brought back to the operating room by the anesthesia and nursing staff where they were given a drop of Lidocaine and betadine into the operative eye. They were then sterilely prepped and draped in the standard fashion typical for ophthalmic surgery. Steri-strips were placed along the upper eyelids to keep the lashes back, and a lid speculum was placed into the operative eye. At this point, a documented time out was performed with members of the ophthalmology, nursing, and anesthesia staffs all agreeing upon the correct patient, correct location for surgery, correct procedure, and correct type and power of intraocular lens to be implanted. The microscope was then swung into position. First, a paracentesis wound was made using a sideport blade. Then, in sequence, 1% preservative-free lidocaine followed by Endocoat viscoelastic was injected into the anterior chamber. Next , the main incision was made with a keratome blade in triplanar fashion. A sharp cystotome was introduced into the eye and used to create a tear in the anterior capsule, which was directed into a continuous curvilinear capsulorrhexis using Utrata forceps. Hydrodissection was then performed with BSS on a flat-tip cannula. Next, the phacoemulsification handpiece was introduced into the eye and used to remove the nucleus in a [id number] fashion. This was done without complication and then the irrigation-aspiration handpiece was introduced into the eye and used to remove all remaining cortical and epinuclear material. Amvisc was then injected into the anterior chamber as well as into the capsular bag and using the lens injector system, an MX60 21.5 D lens, serial number [id number], and expiration date 11/2019 was injected into the capsular bag and rotated into the correct position. Next, the irrigation- aspiration handpiece was used to remove all remaining Amvisc. BSS was used to hydrate the main wound, and then BSS was injected into the paracentesis site to reach physiologic pressure and then the main wound was checked and found to be watertight. The patient was given drops of Vigamox and Tobradex ointment into the operative eye, and then the surrounding area was cleaned and dried. A clear plastic shield was placed over the eye and the patient was then sat up and taken from the operating room by the anesthesia staff having tolerated the procedure well and suffering no complications. DISPOSITION: The patient was returned to the recovery room in stable condition. I attest to the content of the Intraoperative Record and any orders documented therein. Any exceptions are noted below.
[2017-05-12 09:46] VITALS: TEMP 36.3
--- NOTE | 2017-05-12 09:46 | Discharge Instructions-SurgCtr ---
Discharge Instructions Date of Service May 12, 2017. Visit Reason for Visit: Cataract Right Eye Discharge Discharge Diagnosis / Problem: right cataract Discharge Goals Goal(s): Decrease discomfort, Improve function Activity Recommendations Activity Limitations: as noted below Anesthesia . Post Anesthesia Instructions: If you have had General Anesthesia or IV Sedation: * Do not drive today. * Resume driving when surgeon permits. * Do not make important decisions or sign legal documents today. * Call surgeon for: 1. Temperature elevations greater than 101 degrees F. 2. Uncontrollable pain. 3. Excessive bleeding. 4. Persistent nausea and vomiting. 5. Medication intolerance (nausea, vomiting or rash). * For nausea and vomiting use only clear liquids such as: tea, soda, bouillon until nausea subsides, then gradually increase diet as tolerated. * If you have any concerns or questions, call your surgeon's office. If physician is unavailable and it is an emergency, call 911 or go to the nearest emergency room. . Instructions / Follow-Up Instructions / Follow-Up ACTIVITY RECOMMENDATIONS: * Light activities. * You may walk outside, read, watch television. * You may notice redness on the white part of the eye and some blurry vision - this is normal. MEDICATIONS: Resume previous medications unless instructed otherwise by your surgeon. Start all eye drops at 12 pm today: * Eye drops (today): Prednisone - one drop in operative eye every 2 hours while awake Ofloxacin - one drop in operative eye every 2 hours while awake Bromfenac - one drop in operative eye daily SPECIAL CARE INSTRUCTIONS: * Tape plastic shield over eye to sleep at night. Call your doctor at with any concerns or problems. FOLLOW UP VISIT: Follow-up with Dr Vega at [place] office as scheduled. Diet Recommendations Home Diet: no limitations Procedures Procedures Performed: Right Cataract Phacoemulsification With Intraocular Lens Implant Pending Studies Studies pending at discharge: no Medical Emergencies . Who to Call and When: Medical Emergencies: If at any time you feel your situation is an emergency, please call 911 immediately. . Non-Emergent Contact Non-Emergency issues call your: Surgeon . . "Provider Documentation" section prepared by James Vega. .
[2017-05-12 10:06] VITALS: BP 157/79; PULSE 50; O2SAT 96
--- NOTE | 2017-05-12 10:15 | Anesthesia Progress Nt - [facility] ---
Anesthesia Post Op Note Date & Time May 12, 2017 at 10:15 Vital Signs Pain Intensity: 0 Vital Signs Past 12 Hours Date Time Temp Pulse Resp B/P (MAP) Pulse Ox O2 Delivery O2 Flow Rate FiO2 05/12/17 10:06 50 16 157/79 (105) 96 Room Air 05/12/17 09:46 36.3 51 12 147/82 (103) 95 Room Air 05/12/17 08:27 36.4 54 18 166/93 (117) 93 Room Air Notes Mental Status: alert / awake / arousable, participated in evaluation Pt Amnestic to Procedure: Yes Nausea / Vomiting: adequately controlled Pain: adequately controlled Airway Patency, RR, SpO2: stable & adequate BP & HR: stable & adequate Hydration State: stable & adequate Anesthetic Complications: no major complications apparent
== END | disposition home or self-care (01) ==
LOC: X.SURG 08:07
PROVIDERS: ATTEND Ophthalmology
DX: H25.11 Age-related nuclear cataract, right eye (principal); G47.33 Obstructive sleep apnea (adult) (pediatric); I25.10 Atherosclerotic heart disease of native coronary artery without angina pectoris; I10 Essential (primary) hypertension; E78.00 Pure hypercholesterolemia, unspecified; I51.9 Heart disease, unspecified; Z85.828 Personal history of other malignant neoplasm of skin; Z95.1 Presence of aortocoronary bypass graft; Z90.49 Acquired absence of other specified parts of digestive tract; Z96.659 Presence of unspecified artificial knee joint; Z79.82 Long term (current) use of aspirin

== ENCOUNTER → 2017-12-08 | Outpatient (CLI) | payer OTHER ==
[~2017-12-08] MED LIST changes: -500ML BSS 0.3ML EPI 1:1000PF IRRIG ONE; -ACETAMINOPHEN 325 MG TAB PO PRN; -AMVISC PLUS 0.8ML SYRINGE INT OCU ONE; -ATROPINE SULFATE 0.1 MG/ML 5ML SYR IV PRN; -BSS FLUSH ONE; -ENDOCOAT 0.85ML SYRINGE INT OCU ONE; -EpHEDrine SULFATE INJ 50 MG/ML AMP IV PRN; -EpINEphrine INJ 1MG/ML AMP 1 MG/ML AMP ONE; -LACTATED RINGER'S 1000ML 500 ML IV SCH; -LIDOCAINE 4% OP SOLN DROP CHARGE ONE; -LIDOCAINE 4% OP SOLN DROP CHARGE OPR SCH; -LIDOCAINE HCL 1% MPF 2 ML VIAL ONE; +METO-478 PO; -METO1TAB31 PO; -MIDAZOLAM HCL 1 MG/ML 2ML VIAL ONE; -MIX: 4ML BSS 1ML EPI 1:1000 PF TOP ONE; -MOXIFLOXACIN OPH SOLN PER DROP CHARGE ONE; -ONDANSETRON INJ 2 MG/ML 2 ML VIAL IV PRN; -POVIDONE-IODINE OP SOLN 30 ML BTL ONE; -PROPARACAINE 0.5% OP SOLN PER DROP CHARGE OPR SCH; +RANI150T85 PO; -TOBRAMYCIN/DEXAMETHASONE OPH OINT PER APPLN CHARGE ONE; -ZNTT/150 PO
--- NOTE | 2017-12-08 11:16 | DIAGNOSTIC IMAGING REPORT ---
(BARIUM SWALLOW) ESOPHAGUS CLINICAL HISTORY: 77 years-old Male presenting with R13.10 [id number] MALE WITH COUGHING DURING EATING, HISTORY OF REFLUX. TECHNIQUE: A standard air contrast barium esophagram is performed. Multiple spot images of the esophagus are acquired both upright and prone. COMPARISON: None. FINDINGS: The patient was able to ingest barium and the barium pill without difficulty. Normal mucosal pattern. No evidence of a Zenker's or other diverticulum. No evidence of intrinsic or extrinsic mass lesion. No aspiration observed. Tertiary contractions noted, evidence of dysmotility. The gastroesophageal junction distended normally. No gastroesophageal reflux could be elicited despite provocative maneuvers. Fluoroscopy dosage (mGy): Not available. Fluoroscopy time: 1.2 minutes. Number of fluoroscopic spot images: 24. IMPRESSION: 1. 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 2. No convincing evidence of a Zenker's diverticulum. 3. Otherwise normal examination. Electronically signed by: Deep Calvert M.D. 12/08/2017 11:15 AM Dictated Date/Time: 12/08/2017 11:13 AM
== END | disposition home or self-care (01) ==
LOC: C.RAD 10:03
DX: K22.8 Other specified diseases of esophagus (principal); R13.10 Dysphagia, unspecified

== ENCOUNTER 2020-02-05 06:07 | Inpatient (IN) ==
--- NOTE | 2020-01-16 10:14 | PAT Medication Instructions ---
Medication Instructions Date of Service January 16, 2020 Home Medications atorvastatin 40 mg tablet 40 mg PO HS biotin 1 mg tablet 1 mg PO QAM coenzyme Q10 200 mg capsule 200 mg PO QAM metoprolol tartrate 25 mg tablet 12.5 mg PO HS multivitamin 0.5 tab PO BID nitroglycerin 0.4 mg sublingual tablet 0.4 mg SL UD PRN potassium chloride 10 mEq capsule,extended release 20 meq PO TID terazosin 5 mg capsule 5 mg PO HS triamcinolone acetonide 0.1 % topical ointment 1 applic TOPICAL UD PRN valsartan 320 mg-hydrochlorothiazide 25 mg tablet 1 tab PO QAM zinc 50 mg tablet 50 mg PO QAM ascorbic acid (vitamin C) [Vitamin C] 1 g PO QAM aspirin [Aspirin Low Dose] 81 mg PO BID famotidine 40 mg PO BID psyllium husk [Metamucil] 2 tbsp PO QAM Continue as directed nitroglycerin 0.4 mg sublingual tablet 0.4 mg SL UD PRN (if needed) ASK your prescriber and surgeon aspirin [Aspirin Low Dose] 81 mg PO BID STOP taking 2 weeks before surgery (or as soon as possible if surgery is within 2 weeks) coenzyme Q10 200 mg capsule 200 mg PO QAM STOP taking 24 hours before surgery triamcinolone acetonide 0.1 % topical ointment 1 applic TOPICAL UD PRN DO NOT take the morning of surgery multivitamin 0.5 tab PO BID potassium chloride 10 mEq capsule,extended release 20 meq PO TID valsartan 320 mg-hydrochlorothiazide 25 mg tablet 1 tab PO QAM zinc 50 mg tablet 50 mg PO QAM ascorbic acid (vitamin C) [Vitamin C] 1 g PO QAM psyllium husk [Metamucil] 2 tbsp PO QAM biotin 1 mg tablet 1 mg PO QAM Take morning of surgery With a small sip of water, OTHERWISE NOTHING TO EAT OR DRINK AFTER MIDNIGHT: famotidine 40 mg PO BID Take evening before surgery atorvastatin 40 mg tablet 40 mg PO HS metoprolol tartrate 25 mg tablet 12.5 mg PO HS multivitamin 0.5 tab PO BID potassium chloride 10 mEq capsule,extended release 20 meq PO TID terazosin 5 mg capsule 5 mg PO HS famotidine 40 mg PO BID Other Notes If you have any questions please call us at [phone] or [phone] or [phone] or [phone]
--- NOTE | 2020-01-18 11:59 | Anesthesiology Consultation ---
Date of Service January 18, 2020 Assessment & Plan (1) Encounter for pre-operative examination: - Seen by cardiology: 01/17/20:"feeling relatively well from a cardiac standpoint.. Recommend further cardiac evaluation given the asymptomatic EKG changes suggesting inferior ischemia when compared to prior. Patient referred for resting echocardiography as well as Lexiscan nuclear stress testing today. Further recommendations pending the results of the studies. If the patient's testing returns satisfactory, he would be considered a moderate acceptable ricardo gical risk for the proposed surgical intervention." Awaiting final cardiology preop risk assessment, stress test, echo reports (per patient, ECHO/stress scheduled 01/30 at [facility]). Per PAT assessment on 01/17: Travel screen- Patient lives in [facility]. Traveled to [place] to visit Brother late November/early December (wore mask), no travel since. No known COVID positive contacts. No history of COVID testing. No current COVID related symptoms. Reviewed with Dr. Kang. Chart Review Chart Review: Patient seen in Pre Admission Testing Teaching & Discussion Pre-Anesthesia Teaching/Discussion Notes: Instructed NPO after midnight before surgery,except medications with 15 cc of water. Medication instructions provided according to the PAT guidelines. History Surgery Operation Date: 02/05/20 07:45 Proposed Procedures p L2-S1 Decompression Fusion, Spinal Cord Monitoring - Blayne Smith DO Height/Weight Height: 6 ft Weight: 112.6 kg Allergies Allergy/AdvReac Type Severity Reaction Status Date / Time antivenin,crotalidae Allergy Intermediate Hives Verified 01/18/20 13:15 polyvalent imm Medications Home Medications Medication Instructions Recorded Confirmed Last Taken atorvastatin 40 mg tablet 40 mg PO HS tab 06/15/19 01/12/20 Unknown biotin 1 mg tablet 1 mg PO QAM tab 06/15/19 01/12/20 Unknown coenzyme Q10 200 mg capsule 200 mg PO QAM cap 06/15/19 01/12/20 Unknown metoprolol tartrate 25 mg tablet 12.5 mg PO HS tab 06/15/19 01/12/20 Unknown multivitamin 0.5 tab PO BID 06/15/19 01/12/20 Unknown nitroglycerin 0.4 mg sublingual 0.4 mg SL UD PRN tab 06/15/19 01/12/20 Unknown tablet potassium chloride 10 mEq 20 meq PO TID cap 06/15/19 01/12/20 Unknown capsule,extended release terazosin 5 mg capsule 5 mg PO HS cap 06/15/19 01/12/20 Unknown triamcinolone acetonide 0.1 % 1 applic TOPICAL UD PRN #1 gm 06/15/19 01/12/20 Unknown topical ointment valsartan 320 1 tab PO QAM tab 06/15/19 01/12/20 Unknown mg-hydrochlorothiazide 25 mg tablet zinc 50 mg tablet 50 mg PO QAM 06/15/19 01/12/20 Unknown ascorbic acid (vitamin C) [Vitamin 1 g PO QAM 11/30/19 01/12/20 Unknown C] aspirin [Aspirin Low Dose] 81 mg PO BID 11/30/19 01/12/20 Unknown famotidine 40 mg PO BID 11/30/19 01/12/20 Unknown psyllium husk [Metamucil] 2 tbsp PO QAM 11/30/19 01/12/20 Unknown Past Medical History Medical History (Updated 01/18/20 @ 14:15 by Tita Aguillon) CAD (coronary artery disease) s/p CABG x4 (2007) Chronic back pain GERD (gastroesophageal reflux disease) controlled Hearing loss in left ear Hyperlipidemia Hypertension Osteoarthritis Retained metal fragment right knee d/t accident Sleep apnea CPAP Spinal stenosis Transient ischemic attack (TIA) TIA vs CVA (2007)/a few days after CABG/no neurologist, no deficits Ulnar nerve palsy Exercise / Class Metabolic Activity III < 4 Walking/Shop/Light housework Past Family History Family History Mother Angina pectoris Family history of diabetes mellitus Father Myocardial infarction Grandmother Cancer Grandfather Cardiac disorder Cancer Grandmother (Maternal) Family history of diabetes mellitus Past Surgical History Surgical History (Updated 01/18/20 @ 14:14 by Tita Aguillon) History of appendectomy History of arthroscopy of right knee x2 meniscus repair History of basal cell carcinoma (BCC) excision right arm History of bilateral carpal tunnel release History of bilateral cataract extraction History of cardiac cath 2007 @ [facility], no stents History of colonoscopy History of surgery left ring finger fx repair--hardware removed History of tonsillectomy History of total right knee replacement (TKR) History of wisdom tooth extraction Hx of v[place]ctomy [place] [facility] [place]follows with Dr. Mayes Status post anal fissurectomy Status post Mohs surgery on left cheek Past Anesthesia History No Hx of Anesthesia Complications and No Family Hx of Anesthesia Complications History of PONV No Hx of PONV and No Hx of Motion Sickness Social History Smoking Status: Former smoker Do You Dip or Chew Tobacco: No Smoking End Date: 1975 Hx Alcohol Use: No Hx Substance Use: No substance use type: does not use Review of Systems Reflux controlled. Patient denies chest pain, shortness of breath, fever, chills, cough, wheezing, palpitations. Physical Exam Vital Signs VITALS BP 126/69 P 61 TEMP 98.0 SP02 98.0 RESP 94%RA PHYSICAL Full neck and c-spine range of motion. Full TMJ range of motion. TMD 3 finger breaths Mallampati Score 3 Dentition: upper partial Lungs: clear throughout to auscultation Cardiac: regular rate and rhythm, no murmurs noted Spine: normal Carotid arteries: negative bruit Extremities: no edema Thick neck Testing Laboratory Results 01/18/20 12:16 01/18/20 12:16 PT 10.9 Seconds (9.0-12.0) 01/18/20 12:16 INR 1.0 (0.9-1.1) 01/18/20 12:16 APTT 29.0 Seconds (21.0-31.0) 01/18/20 12:16 Urine Color Yellow 01/18/20 Unknown Urine Appearance Clear (Clear) 01/18/20 Unknown Urine pH 6.5 (4.5-7.5) 01/18/20 Unknown Ur Specific [place] 1.013 (1.000-1.030) 01/18/20 Unknown Urine Protein Negative (Negative) 01/18/20 Unknown Urine Glucose (UA) Negative (Negative) 01/18/20 Unknown Urine Ketones Negative (Negative) 01/18/20 Unknown Urine Nitrite Negative (Negative) 01/18/20 Unknown Ur Leukocyte Esterase Negative (Negative) 01/18/20 Unknown Blood Type O Positive 01/18/20 12:16 Antibody Screen NEGATIVE 01/18/20 12:16 BSG 187 on preop labs. No known hx of diabetes per patient/records. Machine Iii Coremaker to forward preop testing to PCP for their reference. Electrocardiogram Date: 01/17/20 SB at 59bpm. Cannot rule out anterior infarct, age undetermined. ST/TWA, con promotion officer inferior ischemia. Patient scheduled for ECHO/stress test to further evaluate (planned for 01/30)* Chest X-Ray Date: 01/18/20 There are poststernotomy changes. The heart is top normal in size. No pleural effusions. No pneumothorax. Stable 12 mm nodule within the right upper lobe. This is better appreciated on the [address] Otherwise, lungs are clear. 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 IMPRESSION: No significant change compared to the prior study. No acute process. Stable 12 mm r ight upper lobe nodule.
--- NOTE | 2020-01-18 12:44 | XRay Report ---
XR chest Pre-admission PA/Lat HISTORY: Preop. COMPARISON: Chest CTA 04/02/2017. FINDINGS: There are poststernotomy changes. The heart is top normal in size. No pleural effusions. No pneumothorax. Stable 12 mm nodule within the right upper lobe. This is better appreciated on the [address] Otherwise, lungs are clear. 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 IMPRESSION: No significant change compared to the prior study. No acute process. Stable 12 mm right upper lobe no dule. ACT 112: Negative or not required by law. Electronically signed by: Celso Carlos M.D. 01/18/2020 12:42 PM
[2020-01-18 13:17] LABS: Basophils # (auto) 0.03 K/uL (0-0.2); Basophils % (auto) 0.6 %; Eosinophils # (auto) 0.21 K/uL (0-0.5); Eosinophils % (auto) 4.1 %; Hematocrit (blood only) 39.2 % (42-52); Hemoglobin 13.1 g/dL (14.0-18.0); Immature Granulocytes # (auto) 0.01 K/uL (0.00-0.02); Immature Granulocytes % (auto) 0.2 %; Lymphocytes # (auto) 1.27 K/uL (1.2-3.4); Lymphocytes % (auto) 24.8 %; Mean Corpuscular Hemoglobin 30.8 pg (25-34); Mean Corpuscular Hgb Conc 33.4 g/dL (32-36); Mean Corpuscular Volume 92.2 fL (80-100); Mean Platelet Volume 9.3 fL (7.4-10.4); Monocytes # (auto) 0.32 K/uL (0.11-0.59); Monocytes % (auto) 6.3 %; Neutrophils # (auto) 3.28 K/uL (1.4-6.5); Platelet Count 191 K/uL (130-400); RDW Coefficient of Variation 13.2 % (11.5-14.5); RDW Standard Deviation 44.2 fL (36.4-46.3); Red Blood Count 4.25 M/uL (4.7-6.1); White Blood Count 5.12 K/uL (4.8-10.8)
[2020-01-18 13:18] LABS: Appearance Urine Clear (Clear); Bilirubin Urine Negative (Negative); Blood Urine Negative (Negative); Color Urine Yellow; Glucose Urine UA Negative (Negative); Ketones Urine Negative (Negative); Leukocyte Esterase Urine Negative (Negative); Nitrite Urine Negative (Negative); Protein Urine Negative (Negative); Specific Gravity Urine 1.013 (1.000-1.030); Urobilinogen Urine Negative (Negative); pH Urine 6.5 (4.5-7.5)
[2020-01-18 13:25] LABS: BUN Creatinine Ratio 15.4 (10-20); Calcium 9.1 mg/dl (8.5-10.1); Creatinine Clr Calc Pharmacy 78.9 ml/min; Est GFR (African American) 83.2; Est GFR (Non-African American) 71.8; Potassium 3.8 mmol/L (3.5-5.1)
[2020-01-18 13:37] LABS: Prothrombin Time 10.9 Seconds (9.0-12.0)
[~2020-02-05 06:07] MED LIST changes: +ACETAMINOPHEN 500 MG TAB PO SCH; -ASCA500 PO; -ASPI81TA28 PO; -ATOR-24 PO; -BIOT1TAB5 PO; +CEFAZOLIN 2000MG 2,000 MG/15 ML SYR IV SCH; -COEN1TAB3 PO; +CeleBREX 200 MG CAP PO SCH; +GABAPENTIN 300 MG CAP PO SCH; -GLUCTAB7 PO; -HYT/2 PO; +LR 15ML/HR IV SCH; -METO-478 PO; -MULT-506 PO; -NTRGSL/4 UT; -NZRCR EXT; -POTA1CAP53 PO; -PSYL1POW4 PO; -RANI150T85 PO; -VALS320T2 PO; -ZINC1TAB PO
[2020-02-05] MEDS ORDERED: BACITRACIN INJ 50,000 UNIT VIAL ONE (06:55)
[2020-02-05] MEDS ORDERED: BUPIVACAINE/EPINEPHRINE 0.25% 1:200,000 30 ML VIAL ONE (06:55)
[2020-02-05] MEDS ORDERED: ONDANSETRON INJ 2 MG/ML 2 ML VIAL IV PRN ×2 (07:06→12:56)
[2020-02-05] MEDS ORDERED: HYDROmorphone INJ 2 MG/ML SYR/VIAL IV PRN (07:06)
[2020-02-05] MEDS ORDERED: fentaNYL citrate 100 MCG/2 ML VIAL IV PRN (07:06)
[2020-02-05] MEDS ORDERED: ePHEDrine sulfate 50 MG/ML AMP IV PRN (07:06)
[2020-02-05] MEDS ORDERED: ATROPINE SULFATE 0.1 MG/ML 10ML SYR IV PRN (07:06)
[2020-02-05] MEDS ORDERED: DEXAMETHASONE SOD INJ 4 MG/ML VIAL ONE (07:07)
[2020-02-05] MEDS ORDERED: GLYCOPYRROLATE 0.2 MG/ML VIAL ONE (07:07)
[2020-02-05] MEDS ORDERED: HYDROmorphone INJ 2 MG/ML SYR/VIAL ONE (07:07)
[2020-02-05] MEDS ORDERED: NEOSTIGMINE METHYLSULFATE 5 MG/5 ML SYR ONE (07:07)
[2020-02-05] MEDS ORDERED: ONDANSETRON INJ 2 MG/ML 2 ML VIAL ONE (07:07)
[2020-02-05] MEDS ORDERED: MIDAZOLAM HCL 1 MG/ML 2ML VIAL ONE (07:07)
[2020-02-05] MEDS ORDERED: fentaNYL citrate 100 MCG/2 ML VIAL ONE (07:07)
--- NOTE | 2020-02-05 07:29 | History & Physical Bridge Note ---
Date of Service February 05, 2020 History & Physical Bridge Note I have examined the patient, reviewed the History & Physical and in the interval since the performance of the History & Physical I have noted the following changes of clinical significance: no changes noted
--- NOTE | 2020-02-05 07:30 | History & Physical Report ---
Date of Service February 05, 2020 Assessment & Plan (1) Neurogenic claudication due to lumbar spinal stenosis: L2-S1 decompression fusion Present on Admission?: Yes History of Present Illness Chief Complaint: Back and leg pain Primary Care Provider: Kelly Tarango MD This is a 79-year-old male presents with chronic persistent back and bilateral leg pain after failing extensive course of nonoperative care is here for surgical invention. Allergies Allergy/AdvReac Type Severity Reaction Status Date / Time antivenin,crotalidae Allergy Intermediate Hives Verified 02/05/20 06:29 polyvalent imm Home Medications Home Medications Medication Instructions Recorded Confirmed Type atorvastatin 40 mg tablet 40 mg PO HS tab 06/15/19 02/05/20 History biotin 1 mg tablet 1 mg PO QAM tab 06/15/19 02/05/20 History coenzyme Q10 200 mg capsule 200 mg PO QAM cap 06/15/19 02/05/20 History metoprolol tartrate 25 mg tablet 12.5 mg PO HS tab 06/15/19 02/05/20 History multivitamin 0.5 tab PO BID 06/15/19 02/05/20 History nitroglycerin 0.4 mg sublingual 0.4 mg SL UD PRN tab 06/15/19 02/05/20 History tablet potassium chloride 10 mEq 20 meq PO TID cap 06/15/19 02/05/20 History capsule,extended release terazosin 5 mg capsule 5 mg PO HS cap 06/15/19 02/05/20 History triamcinolone acetonide 0.1 % 1 applic TOPICAL UD PRN #1 gm 06/15/19 02/05/20 History topical ointment valsartan 320 1 tab PO QAM tab 06/15/19 02/05/20 History mg-hydrochlorothiazide 25 mg tablet zinc 50 mg tablet 50 mg PO QAM 06/15/19 02/05/20 History ascorbic acid (vitamin C) [Vitamin 1 g PO QAM 11/30/19 02/05/20 History C] aspirin [Aspirin Low Dose] 81 mg PO BID 11/30/19 02/05/20 History famotidine 40 mg PO BID 11/30/19 02/05/20 History psyllium husk [Metamucil] 2 tbsp PO QAM 11/30/19 02/05/20 History acetaminophen [Tylenol Extra 500 mg PO Q6H PRN 02/05/20 02/05/20 History Strength] Past Med/Surg History Family History Mother Angina pectoris Family history of diabetes mellitus Father Myocardial infarction Grandmother Cancer Grandfather Cardiac disorder Cancer Grandmother (Maternal) Family history of diabetes mellitus Social History Preferred Language: French Communication Ability: Effective Cullet Crusher Required: No Beliefs That Will Affect Care: None Current Living Situation: Spouse current occupational status: retired Other Information That Helps Us Care for You: No Feels Safe at Home: Yes Safety Concerns: Feels Safe At This Time Smoking Status: Former smoker Do You Dip or Chew Tobacco: No ; Smoking End Date: 1975 ; Second Hand Exposure: Yes (AT WORK YRS AGO) ; Tobacco Cessation Education Requested by Patient: No Hx Alcohol Use: No Hx Substance Use: No Physical Exam Physical Exam: Patient is alert and oriented neurologically intact Heart is regular rate and rhythm Lungs clear to auscultation Results & Data Vital Signs (Past 12 Hours) Vital Signs Temp Pulse Resp BP Pulse Ox 02/05/20 06:33 36.7 C 62 20 169/89 H 94
[2020-02-05] MEDS ORDERED: ROCURONIUM BROMIDE 10 MG/ML 5 ML VIAL ONE (08:11)
[2020-02-05] MEDS ORDERED: FLOSEAL HEMOSTATIC MATRIX 10ML TOP ONE (08:32)
[2020-02-05] MEDS ORDERED: ALBUMIN HUMAN 5% 12.5 GM/250 ML VIAL IV ONE ×2 (09:20→10:21)
--- NOTE | 2020-02-05 10:49 | Operative Report ---
Post Operative Report Pre & Post Diagnosis Operation Date: 02/05/20 07:45 Pre-Op Diagnosis: Spinal Stenosis, Lumbar Region with neurogenic claudication Post-Op Diagnosis: Spinal Stenosis, Lumbar Region with neurogenic claudication I identified the patient and participated in the time-out.: Yes Procedure Operation Date: 02/05/20 07:45 Actual Procedures #1 lumbar decompression with bilateral medial facetectomies and foraminotomies L2-3, L3-4, L4-5 L5-S1. #2 posterior spinal fusion L2-3, L3-4, L4-5 and L5-S1. #3 placement posterior segmental instrumentation from L2-S1. #4 interbody fusion L5-S1. #5 placement of peek cage 10 x 26 mm at L5-S1. #6 placement of locally harvested morselized autograft in the posterior lateral gutters. #7 placement infuse collagen sponge, master graft in the posterior lateral gutters and ostial amp and interbody space. Surgeon Blayne Smith, Typing Section Chief Gretchen Frye Estimated Blood Loss 1,000 Findings See Below The patient is 6 foot tall weighing over 110 kg with a BMI in excess of 33. Patient's body habitus combined with a blood loss however 1000 cc created significant technical difficulty adding at least 40% increase in the operative time. Specimens None Indications This is a 79-year-old male who presents with above-mentioned diagnosis after failing stents a course of nonoperative care is here for the above-mentioned procedure. Description of Procedure Patient was met with identified informed consent obtained. Patient was then taken to the operative suite underwent intubation placed in a prone position the Braxton table on top of the Abel frame. All bony prominences well-padded eyes inspected to ensure no external pressure placed upon the. This point the lumbar spine is prepped and draped in normal sterile fashion. Sharp dissection with the assistance of Bovie cautery was performed down to and exposing the lamina and transverse processes of L2-L3-L4 L5 and the sacral ala bilaterally. From a caudal to cephalad fashion complete laminectomy of L5 L4 L3 and L2 was performed including bilateral medial facetectomies and foraminotomies addressing severe spinal stenosis. Pedicle screws were then placed in L2 L3-L4-L5 and S1 levels bilaterally with assistance of fluoroscopy and the appropriately sized george placed. By way of a trans-foraminal approach on the right a complete discectomy of L5-S1 was performed endplates curetted to subcortical bleeding bone and a 10 x 26 mm peek cage filled with osteo-bone graft tapped in position. The rods were then locked into final position bilaterally. The transverse processes of L to L3-L4-L5 and the sacral ala were then burred to subcortical bleeding bone. Infuse collagen sponge master graft local autograft was then placed in the posterior lateral gutters. 15 round ENRIQUE drain inserted. Incision was then closed with 1 Vicryl in the fascia 2-0 Vicryl subcutaneously and 4 Monocryl for final skin closure. Steri-Strip sterile dressings placed. Patient will continue to PACU stable condition. Please note spinal cord monitoring was utilized that the procedure no changes noted. Lastly Gretchen Frye was present at the entire procedure involved the patient positioning complex portions of the surgery and final skin closure. I attest to the content of the Intraoperative Record and any orders documented therein. Any exceptions are noted below.
--- NOTE | 2020-02-05 10:57 | Fluoroscopy Report ---
LUMBAR SPINE, INTRAOPERATIVE FLUOROSCOPY HISTORY: L2-S1 decompression fusion. FLUOROSCOPY TIME: 34 seconds. FINDINGS: Intraoperative fluoroscopy was provided for the lumbar spine. 3 fluoroscopic spot images we re obtained. Posterior decompression and fusion from L2 through S1 with pedicle screws and rods. The hardware appears intact. IMPRESSION: Fluoroscopy provided for a L2-S1 posterior decompression and fusion. ACT 112: Negative or not required by law. Electronically signed by: Celso Carlos M.D. 02/05/2020 10:55 AM
[2020-02-05 11:28] LABS: iSTAT Creatinine 0.9 mg/dl (0.6-1.3); iSTAT Hemoglobin 10.9 g/dl (14.0-18.0); iSTAT Ionized Calcium 1.23 mmol/l (1.12-1.32); iSTAT Potassium 3.9 mmol/L (3.3-5.0)
[2020-02-05 11:28] LABS: iSTAT Creatinine 0.9 mg/dl (0.6-1.3); iSTAT Hemoglobin 10.9 g/dl (14.0-18.0); iSTAT Ionized Calcium 1.22 mmol/l (1.12-1.32); iSTAT Potassium 3.7 mmol/L (3.3-5.0)
--- NOTE | 2020-02-05 11:54 | Anesthesiology Progress Note ---
Date of Service February 05, 2020 Anesthesia Post Procedure Vital Signs Vital Signs: Temp Pulse Pulse Resp BP BP Pulse Ox 02/05/20 11:50 36.1 C L 63 14 110/63 93 02/05/20 11:40 58 L 12 137/68 93 02/05/20 11:30 62 14 142/71 H 96 02/05/20 11:20 60 13 132/67 98 02/05/20 11:12 36.5 C 65 12 117/61 94 02/05/20 06:33 36.7 C 62 20 169/89 H 94 Pain Intensity Back: Pain Intensity: 2 Transfer of Care Handoff Completed per policy Notes Mental Status: alert / awake / arousable and participated in evaluation Patient Amnestic to Procedure: Yes Nausea / Vomiting: adequately controlled Pain: adequately controlled Airway Patency, RR, SpO2: stable & adequate BP & HR: stable & adequate Hydration State: stable & adequate Anesthetic Complications: no major complications apparent and Pt Satisfied with anesthetic care
[2020-02-05] MEDS ORDERED: SOD PHOSPHATE/SOD BIPHOSPHATE ENEMA 132 ML BTL PR PRN (12:56)
[2020-02-05] MEDS ORDERED: HYDROmorphone INJ 0.5 MG/0.5 ML SYR IV PRN (12:56)
[2020-02-05] MEDS ORDERED: LORazepam 0.5 MG TAB PO PRN (12:56)
[2020-02-05] MEDS ORDERED: OXYCODONE HCL IR 5 MG TAB (IMMEDIATE RELEASE) PO PRN (12:56)
[2020-02-05] MEDS ORDERED: TRAMADOL HCL 50 MG TABLET PO PRN (12:56)
[2020-02-05] MEDS ORDERED: LORazepam 0.5 MG/1 ML VIAL IV PRN (12:56)
[2020-02-05] MEDS ORDERED: PROMETHAZINE HCL 12.5 MG in SODIUM CHLORIDE 0.9% 50 ML IV PRN (12:56)
[2020-02-05] MEDS ORDERED: ONDANSETRON 4 MG OD TAB PO PRN (12:56)
[2020-02-05] MEDS ORDERED: DO NOT ADMINISTER FLU VACCINE PRN (12:56)
[2020-02-05] MEDS ORDERED: METOCLOPRAMIDE HCL INJ 5 MG/ML 2 ML VIAL IV PRN (12:56)
[2020-02-05] MEDS ORDERED: bisacodyL 10 MG SUPP PR PRN (12:56)
[2020-02-05] MEDS ORDERED: MAGNESIUM HYDROXIDE SUSP 30 ML UDC PO PRN (12:56)
[2020-02-05] MEDS ORDERED: FAMOTIDINE 20 MG TAB PO PRN (12:56)
[2020-02-05] MEDS ORDERED: NALOXONE HCL 0.4 MG/1 ML VIAL/CARP IV PRN (12:56)
[2020-02-05] MEDS ORDERED: DO NOT ADMINISTER PNEUMOCOCCAL VACCINE PRN (12:56)
[2020-02-05] MEDS ORDERED: HYDROmorphone INJ 1 MG/ML SYRINGE IV PRN (12:56)
[2020-02-05] MEDS ORDERED: ALUMINUM/MAGNESIUM SUSP 30 ML UDC PO PRN (12:56)
[2020-02-05] MEDS ORDERED: ACETAMINOPHEN 1,000 MG/100 ML VIAL IV PRN (12:56)
[2020-02-05] MEDS ORDERED: NITROGLYCERIN SL 0.4 MG/TAB TAB SL PRN (12:56)
--- NOTE | 2020-02-05 13:36 | Hospitalist Consultation ---
Date of Consultation February 05, 2020 Assessment & Plan (1) S/P spinal surgery: (2) Neurogenic claudication due to lumbar spinal stenosis: This is a 79-year-old male with PMH of CAD (s/p 4 vessel CABG in 2007), HTN, history of CVA without residual deficits, chronic chest pain, PEGGY on CPAP and other medical problems listed below who is POD#0 s/p lumbar decompression with bilateral medial facetectomies and foraminotomies L2-3, L3-4, L4-5 L5-S1 and posterior spinal fusion L2-3, L3-4, L4-5 and L5-S1. -POD#0 s/p lumbar decompression and fusion by Dr. Smith -Pt is doing well post-operatively -Per ortho for pain control, wound care, anticoagulation and activities -Continue incentive spirometry, PT/OT when appropriate (3) Acute blood loss anemia: Pre-op hgb 13.1. EBL 1,000ml with post-op hgb of 10.9. ENRIQUE output 150ml to date -Repeat H&H this evening. Consented, type and screened by Dr. Smith -Transfuse for hgb <8 due to history of CAD (4) CAD (coronary artery disease): (5) S/P CABG x 4: Continue aspirin, statin, metoprolol (6) HTN (hypertension): Current regimen includes amlodipine, losartan-hctz and metoprolol -Will plan hold losartan-hctz tomorrow AM (7) History of CVA (cerebrovascular accident): Complication of 4v CABG in 2007. No residual deficits (8) GERD (gastroesophageal reflux disease): Continue Pepcid BID (9) PEGGY (obstructive sleep apnea): Brought CPAP from home PCP: Sukhdeep ([facility]) Dispo: Per primary service Patient seen in collaboration with Dr. Naqvi. Please see addendum. Supervising Physician Co-Signing Physician Notes Attending Addendum: care coordinated with ROBERTO Moon please refer to her notes for full details, I agree with her notes patient seen and examined, records reviewed by myself as well on exam, patient seen resting in bedside chair, sitting up, comfortable, very pleasant, not in distress States he feels fine overall Very minimal pain on the surgical site Otherwise no chest pain, shortness of breath, dizziness, nausea vomiting no other symptoms VS noted and reviewed oriented x 3 , not in distress, speaks in sentences with no effort nor accessory muscle use normal rate, regular rhythm, no murmurs clear breath sounds bilaterally non distended, soft, nontender Back surgical dressing in place, drain in place with serous output no bipedal edema, erythema, warmth no neuro deficits Hemoglobin 11 ASSESSMENT AND PLAN Status post lumbar spine surgery Hemodynamically stable Feels fine overall Monitor hemoglobin History of CAD No cardiac symptoms Continue on with aspirin if okay with surgical service Hypertension Stable Hold usual losartan/hydrochlorthiazide to prevent hypotension other diagnoses and plan of care as per ROBERTO Moon's notes Donovan Naqvi MD History of Present Illness Reason for Consultation: Postop medical management Attending Physician: Blayne Smith DO History of Present Illness This is a 79-year-old male with PMH of CAD (s/p 4 vessel CABG in 2007), HTN, history of CVA without residual deficits, chronic chest pain, PEGGY on CPAP and other medical problems listed below who is POD#0 s/p lumbar decompression with bilateral medial facetectomies and foraminotomies L2-3, L3-4, L4-5 L5-S1 and posterior spinal fusion L2-3, L3-4, L4-5 and L5-S1. Patient is feeling well postoperatively. Mild pressure at surgical site. Denies any fever, chills, headache, lightheadedness, visual changes, sore throat, cough, chest pain, palpitations, shortness of breath, abdominal pain, nausea, vomiting, dysuria, constipation or diarrhea. Last bowel movement was this morning. Had a pre- operative stress echo with no inducible ischemia, preserved EF 60 to 65% and grade 2 diastolic dysfunction. Allergies Allergy/AdvReac Type Severity Reaction Status Date / Time antivenin,crotalidae Allergy Intermediate Hives Verified 02/05/20 06:29 polyvalent imm Home Medications Home Medications Medication Instructions Recorded Confirmed Type atorvastatin 40 mg tablet 40 mg PO HS tab 06/15/19 02/05/20 History biotin 1 mg tablet 1 mg PO QAM tab 06/15/19 02/05/20 History coenzyme Q10 200 mg capsule 200 mg PO QAM cap 06/15/19 02/05/20 History metoprolol tartrate 25 mg tablet 12.5 mg PO HS tab 06/15/19 02/05/20 History multivitamin 0.5 tab PO BID 06/15/19 02/05/20 History nitroglycerin 0.4 mg sublingual 0.4 mg SL UD PRN tab 06/15/19 02/05/20 History tablet potassium chloride 10 mEq 20 meq PO TID cap 06/15/19 02/05/20 History capsule,extended release terazosin 5 mg capsule 5 mg PO HS cap 06/15/19 02/05/20 History triamcinolone acetonide 0.1 % 1 applic TOPICAL UD PRN #1 gm 06/15/19 02/05/20 History topical ointment zinc 50 mg tablet 50 mg PO QAM 06/15/19 02/05/20 History ascorbic acid (vitamin C) [Vitamin 1 g PO QAM 11/30/19 02/05/20 History C] aspirin [Aspirin Low Dose] 81 mg PO BID 11/30/19 02/05/20 History famotidine 40 mg PO BID 11/30/19 02/05/20 History psyllium husk [Metamucil] 2 tbsp PO QAM 11/30/19 02/05/20 History acetaminophen [Tylenol Extra 500 mg PO Q6H PRN 02/05/20 02/05/20 History Strength] amlodipine 5 mg PO DAILY 02/05/20 02/05/20 History losartan-hydrochlorothiazide 1 tab PO DAILY 02/05/20 02/05/20 History omega 3-lcj-kme-fish oil [Fish Oil] 1 cap PO DAILY 02/05/20 02/05/20 History Patient History Medical History CAD (coronary artery disease) s/p CABG x4 (2007) Chronic back pain GERD (gastroesophageal reflux disease) controlled Hearing loss in left ear Hyperlipidemia Hypertension Osteoarthritis Retained metal fragment right knee d/t accident Right knee DJD Sleep apnea CPAP Spinal stenosis Transient ischemic attack (TIA) TIA vs CVA (2007)/a few days after CABG/no neurologist, no deficits Ulnar nerve palsy Surgical History History of appendectomy History of arthroscopy of right knee x2 meniscus repair History of basal cell carcinoma (BCC) excision right arm History of bilateral carpal tunnel release History of bilateral cataract extraction History of cardiac cath 2007 @ [facility] [place], no stents History of colonoscopy History of surgery left ring finger fx repair--hardware removed History of tonsillectomy History of total right knee replacement (TKR) History of wisdom tooth extraction Hx of vasectomy S/P CABG x 4 [facility] [place] @ 2007--follows with Dr. Mayes Status post anal fissurectomy Status post Mohs surgery on left cheek Family History Mother Angina pectoris Family history of diabetes mellitus Father Myocardial infarction Grandmother Cancer Grandfather Cardiac disorder Cancer Grandmother (Maternal) Family history of diabetes mellitus Social History Preferred Language: Montenegrin Communication Ability: Effective Food Cart Attendant Required: No Beliefs That Will Affect Care: None Current Living Situation: Spouse current occupational status: retired Other Information That Helps Us Care for You: No Feels Safe at Home: Yes Safety Concerns: Feels Safe At This Time Smoking Status: Former smoker Do You Dip or Chew Tobacco: No ; Smoking End Date: 1975 ; Second Hand Exposure: Yes (AT WORK YRS AGO) ; Tobacco Cessation Education Requested by Patient: No Hx Alcohol Use: No Hx Substance Use: No Review of Systems Review of Systems: At least ten systems reviewed and negative except as noted in the HPI. Physical Exam Physical Exam: General Appearance: WD/WN, vitals as above, NAD, sitting up in bed, obese, pleasant, conversing easily Head: normocephalic, atraumatic Eyes: normal inspection, PERRL, conjunctivae normal, anicteric sclerae ENT: external ear and nose normal Neck: trachea midline, no thyromegaly, normal visual inspection Respiratory: normal respiratory effort, lungs clear to auscultation, no wheeze, rales, rhonchi. Normal insp/exp effort, no accessory muscle use Cardiovascular: regular rate, rhythm, no murmur, normal peripheral pulses. Vessels: no JVD or carotid bruit Abdomen/GI: normal bowel sounds, soft, nontender, no hepatosplenomegaly Extremities/Musculoskeleatal: Lumbosacral surgical dressing intact. ENRIQUE drain visualized with serosanguineous output. No cyanosis or clubbing, extremities motor strength 5/5 Neurologic: PERRL, EOMI, CN's II-XI intact bilaterally and moves all extremities Psychiatric: A+Ox3, euthymic affect Skin: no rashes, normal color, warm/dry Results & Data Results & Data ([facility]) Vital Signs (Past 12 Hours) Vital Signs Temp Pulse Pulse Resp BP BP Pulse Ox 02/05/20 12:40 36.6 C 67 16 127/64 93 02/05/20 12:15 36.6 C 57 L 14 118/62 93 02/05/20 12:00 36.6 C 62 12 133/63 93 02/05/20 11:50 36.1 C L 63 14 110/63 93 02/05/20 11:40 58 L 12 137/68 93 02/05/20 11:30 62 14 142/71 H 96 02/05/20 11:20 60 13 132/67 98 02/05/20 11:12 36.5 C 65 12 117/61 94 02/05/20 06:33 36.7 C 62 20 169/89 H 94 Laboratory Results Pre op hgb: 13.1 (01/18/20) Post op hgb: 10.9 (02/05/20)
[2020-02-05] MEDS: SODIUM CHLORIDE 0.9% 1000ML 1,000 ML IV SCH ×2 (13:38→20:19)
[2020-02-05] MEDS ORDERED: VALSARTAN 80 MG TAB PO SCH (14:00)
[2020-02-05] MEDS ORDERED: hydroCHLOROthiazide 25 MG TAB PO SCH (14:00)
[2020-02-05] MEDS: ACETAMINOPHEN 500 MG TAB PO PRN (14:36)
[2020-02-05] MEDS: POTASSIUM CHLORIDE 20 MEQ TABCR PO SCH ×2 (14:37→20:28)
[2020-02-05] MEDS: CEFAZOLIN 2000MG 2,000 MG/15 ML SYR IV SCH ×2 (17:06→23:37)
[2020-02-05 19:01] LABS: Hematocrit (blood only) 33.9 % (42-52)
[2020-02-05] MEDS: MULTIVITAMIN TAB PO SCH (20:26)
[2020-02-05] MEDS: METOPROLOL SUCC 25MG EXT REL TAB PO SCH (20:27)
[2020-02-05] MEDS: ATORVASTATIN 40 MG TAB PO SCH (20:28)
[2020-02-05] MEDS: ASPIRIN 81 MG ECTAB PO SCH (20:29)
[2020-02-05] MEDS: TERAZOSIN HCL 5 MG CAP PO SCH (20:29)
[2020-02-05] MEDS: FAMOTIDINE 40 MG TABLET PO SCH (20:29)
[2020-02-05] MEDS: DOCUSATE SODIUM/SENNA 50/8.6MG TAB PO SCH (20:29)
[2020-02-06 00:45] LABS: Hematocrit (blood only) 30.7 % (42-52); Hemoglobin 10.1 g/dL (14.0-18.0)
[2020-02-06] MEDS: SODIUM CHLORIDE 0.9% 1000ML 1,000 ML IV SCH (02:47)
[2020-02-06] MEDS: ACETAMINOPHEN 500 MG TAB PO PRN ×3 (02:48→20:36)
[2020-02-06 05:10] LABS: Hematocrit (blood only) 29.7 % (42-52); Hemoglobin 9.8 g/dL (14.0-18.0); Immature Granulocytes # (auto) 0.03 K/uL (0.00-0.02); Immature Granulocytes % (auto) 0.3 %; Lymphocytes % (auto) 5.2 %; Mean Corpuscular Hemoglobin 30.8 pg (25-34); Mean Corpuscular Volume 93.4 fL (80-100); Mean Platelet Volume 9.2 fL (7.4-10.4); Monocytes # (auto) 0.78 K/uL (0.11-0.59); Monocytes % (auto) 8.2 %; Neutrophils # (auto) 8.23 K/uL (1.4-6.5); Neutrophils % (auto) 86.3 %; Platelet Count 158 K/uL (130-400); RDW Coefficient of Variation 13.1 % (11.5-14.5); RDW Standard Deviation 44.7 fL (36.4-46.3); Red Blood Count 3.18 M/uL (4.7-6.1); White Blood Count 9.54 K/uL (4.8-10.8)
[2020-02-06 05:37] LABS: BUN Creatinine Ratio 19.3 (10-20); Calcium 7.7 mg/dl (8.5-10.1); Creatinine Clr Calc Pharmacy 81.6 ml/min; Est GFR (African American) 87.4; Est GFR (Non-African American) 75.4; Potassium 4.6 mmol/L (3.5-5.1)
[2020-02-06] MEDS: POLYETHYLENE (MIRALAX) 17 GM PACK PO SCH ×4 (06:00→23:32)
--- NOTE | 2020-02-06 07:58 | Orthopedic Progress Note ---
Date of Service February 06, 2020 Assessment & Plan (1) Neurogenic claudication due to lumbar spinal stenosis: Patient will start with physical therapy this morning. Continue with DVT prophylaxis in the form of teds and SCDs. Maintain ENRIQUE drain and dressing. Continue with pain control currently in the form of tramadol and Tylenol. Continue with aggressive bowel regimen. recheck H&H in the morning. Anticipate discharge home later this week. Admission and Anticipated Discharge Date Admission Date: February 05, 2020 Supervising Physician Co-Signing Physician Notes Dr. Blayne Smith Subjective Patient is postoperative day 1 L2-S1 decompression fusion. He had an uneventful evening. No complaints this morning. Denies radicular leg pain or paresthesia. Back pain is modest. ENRIQUE is functioning. H&H this morning are 9.8 and 29. No shortness of breath or chest pain. He is sitting up and sitting on the edge of the bed eating without issue Review of Systems Review of Systems: All systems reviewed & are unremarkable except as noted in HPI & below Physical Exam Physical Exam: He sitting up in bed. He is alert and oriented x3. No acute distress. Lumbar dressing is clean dry and intact. ENRIQUE drain intact. Lower extremities calves are soft nontender bilaterally. Strength is intact bilateral lower extremities. LEXIE hose intact. Results & Data ([facility]) Vital Signs (Past 12 Hours) Vital Signs Temp Pulse Pulse Resp BP BP Pulse Ox 02/06/20 07:14 36.5 C 64 18 142/70 H 94 02/06/20 02:49 36.4 C L 70 16 130/65 93 02/05/20 23:01 36.5 C 74 16 126/68 93 02/05/20 20:21 66 16 121/61 93 02/05/20 19:58 36.3 C L 63 16 117/58 L 97
[2020-02-06] MEDS: POTASSIUM CHLORIDE 20 MEQ TABCR PO SCH ×3 (08:37→20:32)
[2020-02-06] MEDS: MULTIVITAMIN TAB PO SCH ×2 (08:37→20:33)
[2020-02-06] MEDS: FAMOTIDINE 40 MG TABLET PO SCH ×2 (08:37→20:34)
[2020-02-06] MEDS: ZINC SULFATE 220 MG CAPSULE PO SCH (08:37)
[2020-02-06] MEDS: ASCORBIC ACID 500 MG TAB PO SCH (08:37)
[2020-02-06] MEDS: ASPIRIN 81 MG ECTAB PO SCH ×2 (08:38→20:31)
[2020-02-06] MEDS: AMLODIPINE BESYLATE 5 MG TAB PO SCH (08:42)
--- NOTE | 2020-02-06 08:54 | Hospitalist Progress Note ---
Date of Service February 06, 2020 Assessment & Plan (1) S/P spinal surgery: (2) Neurogenic claudication due to lumbar spinal stenosis: This is a 79-year-old male with PMH of CAD (s/p 4 vessel CABG in 2007), HTN, history of CVA without residual deficits, chronic chest pain, PEGGY on CPAP and other medical problems listed below who is POD#1 s/p lumbar decompression with bilateral medial facetectomies and foraminotomies L2-3, L3-4, L4-5 L5-S1 and posterior spinal fusion L2-3, L3-4, L4-5 and L5-S1. POD#1 s/p lumbar decompression and fusion by Dr. Smith EBL: 1,000mL; ENRIQUE Drain 840mL Pt is doing well post-operatively pain/wound management per ortho activities and therapy as directed by ortho encourage incentive spirometry DVT ppx per ortho (3) Acute blood loss anemia: Pre-op hgb 13.1. EBL 1,000ml with post-op hgb of 10.9. ENRIQUE output 840ml hgb 9.8 this morning, remains asymptomatic with good hemodynamics continue to follow H/H Consented, type and screened by Dr. Smith Transfuse for hgb <8 due to history of CAD (4) CAD (coronary artery disease): no chest pain/sob continue home meds (5) S/P CABG x 4: Continue aspirin, statin, metoprolol no CP/SOB (6) HTN (hypertension): Current regimen includes amlodipine, losartan-hctz and metoprolol Resume losartan-hctz tomorrow AM (7) History of CVA (cerebrovascular accident): Complication of 4v CABG in 2007. No residual deficits continue asa/statin (8) GERD (gastroesophageal reflux disease): Continue Pepcid BID (9) PEGGY (obstructive sleep apnea): CPAP at HS [facility]CP: [facility] ([facility]) Dispo: Per primary service Patient seen in collaboration with Dr. Rodriguez. Please see addendum. Thank you for this consultation. We will follow the patient with you during their hospital stay. You can reach a member of the [facility] Team 22/03 via pager @ [phone]. Admission and Anticipated Discharge Date Admission Date: February 05, 2020 Supervising Physician Co-Signing Physician Notes Patient seen and examined by me, mo coordinated with Salma Gautam PA-C. Please see her note above for further detail. Pt is a 79-year-old male with hx of CAD (s/p 4 vessel CABG in 2007), HTN, history of CVA without residual deficits, chronic chest pain, PEGGY on CPAP and other medical problems listed below who is POD#1 s/p lumbar decompression with bilateral medial facetectomies and foraminotomies L2-3, L3-4, L4-5 L5-S1 and posterior spinal fusion L2-3, L3-4, L4-5 and L5-S1. Tolerated procedure well. Overall feels well. No current significant back pain. Denies fever, chills, chest pain, shortness of breath, dizziness, lightheadedness, abdominal pain, nausea or vomiting. No flatus or BM today. Patient was ambulating today, without much difficulty. Patient is sitting in a chair, in no acute distress. Lungs are clear to auscultation bilaterally, heart sounds regular, abdomen soft nontender nondistended. Serosanguineous fluid noted in ENRIQUE drain. Patient is able to move extremities spontaneously and without difficulty. He is alert and oriented and answers questions appropriately. Hemoglobin decreased from preop however stable. And patient is asymptomatic from his anemia. We will continue to monitor his H&H and vital signs closely. Anali Rodriguez MD Subjective Pt seen and examined in room 311-1. F/U lumbar surgery by Dr. Smith, POD #1. Overall feels well this morning. No current back pain. Denies f/c/s, dizziness, lightheaded, chest pain, sob, n/v/d, abdominal pain. No flatus or BM today. Was up standing yesterday w/o orthostatic sx. Tolerated regular diet yesterday. Used CPAP last evening. Stein cath still in place. Review of Systems Review of Systems: All systems reviewed & are unremarkable except as noted in HPI & below Physical Exam Physical Exam: Gen: WD/WN, M, NAD, A&O x3 HEENT: Normocephalic, atraumatic, conjunctivae moist, sclerae anicteric, mucous membranes moist. Lung: Clear to Auscultation bilaterally, no wheezes/rales/rhonchi Heart: Regular rate, regular rhythm, soft 1/6 ОЛЬГА heard best cardiac apex, rubs, or gallops Abdomen:protuberant abd, Soft, NT, ND +BS x 4 Extremities: No edema, SCD/teds in place Skin: Warm, no rash, negative turgor. ENRIQUE drain with serosanguineous drainage : +Stein with yellow urine Results & Data Results & Data ([facility]) Vital Signs (Past 12 Hours) Vital Signs Temp Pulse Pulse Resp BP BP Pulse Ox 02/06/20 07:14 36.5 C 64 18 142/70 H 94 02/06/20 02:49 36.4 C L 70 16 130/65 93 02/05/20 23:01 36.5 C 74 16 126/68 93 Laboratory Results Short CBC 01/18/20 02/05/20 02/06/20 Range/Units 12:16 18:51 00:30 WBC (4.8-10.8) K/uL Hgb 11.0 L 10.1 L (14.0-18.0) g/dL Hct 33.9 L 30.7 L (42-52) % Plt Count (130-400) K/uL Creatinine 1.00 (0.6-1.4) mg/dl 02/06/20 02/06/20 Range/Units 04:33 04:33 WBC 9.54 (4.8-10.8) K/uL Hgb 9.8 L (14.0-18.0) g/dL Hct 29.7 L (42-52) % Plt Count 158 (130-400) K/uL Creatinine 0.96 (0.6-1.4) mg/dl BMP 02/06/20 04:33 Sodium 139 Potassium 4.6 Chloride 108 H Carbon Dioxide 28 BUN 19 H Creatinine 0.96 Glucose 145 H Calcium 7.7 L Medications Administered Acetaminophen (Tylenol) 1,000 mg PO Q8H PRN PRN Reason: MILD Pain Scale 1,2,3 & Pre PT Stop: 03/06/20 12:55 Last Admin: 02/06/20 02:48 Dose: 1,000 mg Documented by: [id number] Admin: 02/05/20 14:36 Dose: 1,000 mg Documented by: [id number] Amlodipine Besylate (Norvasc) 5 mg PO DAILY O[facility]G Stop: 03/07/20 08:59 Last Admin: 02/06/20 08:42 Dose: 5 mg Documented by: [id number] Ascorbic Acid (Vitamin C) 1,000 mg PO QAM OLEG Stop: 03/07/20 08:59 Last Admin: 02/06/20 08:37 Dose: 1,000 mg Documented by: [id number] Aspirin (Ecotrin Ectab) 81 mg PO BID OLEG Stop: 03/06/20 20:59 Last Admin: 02/06/20 08:38 Dose: 81 mg Documented by: [id number] Admin: 02/05/20 20:29 Dose: 81 mg Documented by: [id number] Atorvastatin Calcium (Lipitor) 40 mg PO [facility] Stop: 03/06/20 20:59 Last Admin: 02/05/20 20:28 Dose: 40 mg Documented by: [id number] Famotidine (Pepcid) 40 mg PO BID OLEG Stop: 03/06/20 20:59 Last Admin: 02/06/20 08:37 Dose: 40 mg Documented by: [id number] Admin: 02/05/20 20:29 Dose: 40 mg Documented by: [id number] Metoprolol Succinate (Toprol Xl) 12.5 mg PO HS [facility] Stop: 03/06/20 20:59 Last Admin: 02/05/20 20:27 Dose: 12.5 mg Documented by: [id number] Multivitamins (Multivitamin Tab) 0.5 tab PO BID [facility] Stop: 03/06/20 20:59 Last Admin: 02/06/20 08:37 Dose: 0.5 tab Documented by: [id number] Admin: 02/05/20 20:26 Dose: 0.5 tab Documented by: [id number] Polyethylene Glycol (Miralax Powder Packet) 17 gm PO Q6 OLEG Stop: 03/07/20 05:59 Last Admin: 02/06/20 06:00 Dose: 17 gm Documented by: [id number] Potassium Chloride (Klor-Con M20) 20 meq PO TID OLEG Stop: 03/06/20 13:59 Last Admin: 02/06/20 08:37 Dose: 20 meq Documented by: [id number] Admin: 02/05/20 20:28 Dose: 20 meq Documented by: [id number] Admin: 02/05/20 14:37 Dose: 20 meq Documented by: [id number] Senna/Docusate Sodium (Senokot S) 2 tab PO HS [facility] Stop: 03/06/20 20:59 Last Admin: 02/05/20 20:29 Dose: 2 tab Documented by: [id number] Terazosin HCl (Hytrin) 5 mg PO HS OLEG Stop: 03/06/20 20:59 Last Admin: 02/05/20 20:29 Dose: 5 mg Documented by: [id number] Tramadol HCl (Ultram) 50 - 100 mg PO Q4H PRN PRN Reason: Moderate-Severe Pain & Pre PT Stop: 03/06/20 12:55 Last Admin: 02/05/20 21:37 Dose: 50 mg Documented by: [id number] Zinc Sulfate (Zinc Sulfate) 220 mg PO QAM OLEG Stop: 03/07/20 08:59 Last Admin: 02/06/20 08:37 Dose: 220 mg Documented by: [id number] Discontinued Medications Acetaminophen (Tylenol) 1,000 mg PO PREOP OLEG Stop: 02/05/20 18:00 Last Admin: 02/05/20 06:49 Dose: 1,000 mg Documented by: [id number] Bacitracin (Bacitracin) Confirm Administered Dose 50,000 units .ROUTE .STK-MED ONE Stop: 02/05/20 06:56 Last Admin: 02/05/20 08:35 Dose: 50,000 units Documented by: [id number] Bupivacaine HCl/Epinephrine Bitart (Bupivacaine 0.25%-Epi [id number]) Confirm Administered Dose 30 ml .ROUTE .STK-MED ONE Stop: 02/05/20 06:56 Last Admin: 02/05/20 08:35 Dose: 25 ml Documented by: [id number] Celecoxib (Celebrex) 200 mg PO PREOP OLEG Stop: 02/05/20 18:00 Last Admin: 02/05/20 06:50 Dose: 200 mg Documented by: [id number] Gabapentin (Neurontin) 300 mg PO PREOP OLEG Stop: 02/05/20 18:00 Last Admin: 02/05/20 06:50 Dose: 300 mg Documented by: [id number] Hydrochlorothiazide (Hctz) 25 mg PO QAM OLEG Stop: 03/06/20 13:59 Last Admin: 02/05/20 14:37 Dose: Not Given Documented by: [id number] Lactated Ringer's (Lr) 1,000 mls @ 15 mls/hr IV .Q24H OLEG Stop: 02/06/20 05:59 Last Infusion: 02/05/20 07:46 Dose: 0 mls/hr Documented by: [id number] Admin: 02/05/20 06:48 Dose: 15 mls/hr Documented by: [id number] Cefazolin Sodium (Ancef 2000mg) 2,000 mg in 15 mls @ 3.75 mls/min IV PREOP OLEG; Protocol Stop: 02/05/20 18:00 Last Admin: 02/05/20 07:46 Dose: 3.75 mls/min Documented by: [id number] Sodium Chloride (Nss 1000ml) 1,000 mls @ 150 mls/hr IV .Q6H40M OLEG Stop: 03/06/20 12:55 Last Infusion: 02/06/20 06:01 Dose: 0 mls/hr Documented by: [id number] Admin: 02/06/20 02:47 Dose: 150 mls/hr Documented by: [id number] Infusion: 02/06/20 02:47 Dose: 150 mls/hr Documented by: [id number] Admin: 02/05/20 20:19 Dose: 150 mls/hr Documented by: [id number] Infusion: 02/05/20 20:19 Dose: 150 mls/hr Documented by: [id number] Admin: 02/05/20 13:38 Dose: 150 mls/hr Documented by: [id number] Cefazolin Sodium (Ancef 2000mg) 2,000 mg in 15 mls @ 3.75 mls/min IV Q8H OLEG; Protocol Stop: 02/06/20 00:03 Last Admin: 02/05/20 23:37 Dose: 3.75 mls/min Documented by: [id number] Admin: 02/05/20 17:06 Dose: 3.75 mls/min Documented by: [id number] Miscellaneous (Floseal Hemostatic Matrix 10ml) 20 ml TOP ONCE ONE Stop: 02/05/20 08:33 Last Admin: 02/05/20 08:36 Dose: 45 ml Documented by: [id number] Valsartan (Diovan) 320 mg PO QAM [facility] Stop: 03/06/20 13:59 Last Admin: 02/05/20 14:37 Dose: Not Given Documented by: [id number]
[2020-02-06] MEDS ORDERED: NON-FORMULARY MEDICATION (Coenzyme Q10 200 MG) PO SCH (09:00)
[2020-02-06] MEDS ORDERED: NON-FORMULARY MEDICATION (Biotin 1 MG) PO SCH (09:00)
[2020-02-06] MEDS: TERAZOSIN HCL 5 MG CAP PO SCH (20:31)
[2020-02-06] MEDS: ATORVASTATIN 40 MG TAB PO SCH (20:32)
[2020-02-06] MEDS: METOPROLOL SUCC 25MG EXT REL TAB PO SCH (20:35)
[2020-02-06] MEDS: DOCUSATE SODIUM/SENNA 50/8.6MG TAB PO SCH (20:35)
[2020-02-07] MEDS: ACETAMINOPHEN 500 MG TAB PO PRN ×3 (04:31→21:25)
[2020-02-07] MEDS: POLYETHYLENE (MIRALAX) 17 GM PACK PO SCH ×4 (05:14→23:46)
[2020-02-07 08:27] LABS: Hematocrit (blood only) 27.9 % (42-52); Hemoglobin 9.4 g/dL (14.0-18.0)
--- NOTE | 2020-02-07 08:36 | Hospitalist Progress Note ---
Date of Service February 07, 2020 Assessment & Plan (1) S/P spinal surgery: (2) Neurogenic claudication due to lumbar spinal stenosis: This is a 79-year-old male with PMH of CAD (s/p 4 vessel CABG in 2007), HTN, history of CVA without residual deficits, chronic chest pain, PEGGY on CPAP and other medical problems listed below who is POD#2 s/p lumbar decompression with bilateral medial facetectomies and foraminotomies L2-3, L3-4, L4-5 L5-S1 and posterior spinal fusion L2-3, L3-4, L4-5 and L5-S1. POD#2 s/p lumbar decompression and fusion by Dr. Smith EBL: 1,000mL; ENRIQUE Drain 1150mL Pt is doing well post-operatively pain/wound management per ortho activities and therapy as directed by ortho encourage incentive spirometry DVT ppx per ortho continue to monitor H&H bmp and A1C pending (3) Acute blood loss anemia: Pre-op hgb 13.1. EBL 1,000ml with post-op hgb of 10.9. continued ENRIQUE output hgb 9.4 this morning, remains asymptomatic with good hemodynamics continue to follow H/H Consented, type and screened by Dr. Smith Transfuse for hgb <8 due to history of CAD (4) CAD (coronary artery disease): no chest pain/sob continue home meds (5) S/P CABG x 4: Continue aspirin, statin, metoprolol no CP/SOB (6) HTN (hypertension): Current regimen includes amlodipine, losartan-hctz and metoprolol Resume losartan-hctz tomorrow this a.m. (7) History of CVA (cerebrovascular accident): Complication of 4v CABG in 2007. No residual deficits continue asa/statin (8) GERD (gastroesophageal reflux disease): Continue Pepcid BID (9) PEGGY (obstructive sleep apnea): CPAP at PCP: Sukhdeep ([facility]) Dispo: Per primary service Patient seen in collaboration with Dr. Damian. Please see addendum. Thank you for this consultation. We will follow the patient with you during their hospital stay. You can reach a member of the [facility] Team 22/03 via pager @ [phone]. Admission and Anticipated Discharge Date Admission Date: February 05, 2020 Supervising Physician Co-Signing Physician Notes I, Dr. Steven Damian, have seen and assessed the patient with physician legal administrative assistant and agree with the assessment and plan as above and would like to comment that on exam General: no acute distress Lungs: clear to auscultation bilaterally Chest: no chest pain, no palpitations Abdomen: somewhat distended, no tenderness to palpation, patient reports he is passing gas Back: ENRIQUE drain with blood Neuro: patient reports able to ambulate to bathroom, no deficits on exam when laying on the bed Assessment and plan - patient appears to be stable. The ENRIQUE drain has blood but no dizziness or lightheadedness. patient reported to orthopedic service of bilateral leg pain and that orthopedics to give him increased steroids. patient denies history of diabetes. HbA1c is still pending. -agree with other consult recommendations as documented by physician legal administrative assistant Subjective Pt seen and examined in room 311-1. F/U lumbar surgery by Dr. Smith, POD #2. Did not sleep well last evening secondary to pain in bilateral posterior thighs. Described as, "muscle spasms." States he has had similar symptoms in past and is relating it to not taking his co-Q10. He did undergo therapy yesterday which otherwise went well. He is passing flatus, but no BM. Stein catheter was removed and he is urinating without difficulty. He denies fever, chills, sweats, lightheadedness, dizziness, chest pain, shortness of breath, cough, nausea, vomiting, abdominal pain. Review of Systems Review of Systems: All systems reviewed & are unremarkable except as noted in HPI & below Physical Exam Physical Exam: Gen: WD/WN, M, NAD, A&O x3 HEENT: Normocephalic, atraumatic, conjunctivae moist, sclerae anicteric, mucous membranes moist. Lung: Clear to Auscultation bilaterally, no wheezes/rales/rhonchi Heart: Regular rate, regular rhythm, soft 1/6 ОЛЬГА heard best cardiac apex, rubs, or gallops Abdomen:protuberant abd, distended but Soft, NT, +BS x 4 Extremities: No edema, b/l venous stasis chronic changes, no pain to palpation b/l hamstrings, + pain to b/l IT band Skin: Warm, no rash, negative turgor. ENRIQUE drain with serosanguineous drainage Results & Data Results & Data ([facility]) Vital Signs (Past 12 Hours) Vital Signs Temp Pulse Pulse Resp BP BP Pulse Ox 02/07/20 07:32 36.8 C 67 18 152/72 H 94 02/06/20 23:14 37.0 C 65 16 129/54 L 94 Laboratory Results Short CBC 02/07/20 Range/Units 08:08 Hgb 9.4 L (14.0-18.0) g/dL Hct 27.9 L (42-52) % Medications Administered Acetaminophen (Tylenol) 1,000 mg PO Q8H PRN PRN Reason: MILD Pain Scale 1,2,3 & Pre PT Stop: 03/06/20 12:55 Last Admin: 02/07/20 04:31 Dose: 1,000 mg Documented by: [id number] Admin: 02/06/20 20:36 Dose: 1,000 mg Documented by: [id number] Admin: 02/06/20 12:26 Dose: 1,000 mg Documented by: [id number] Admin: 02/06/20 02:48 Dose: 1,000 mg Documented by: [id number] Admin: 02/05/20 14:36 Dose: 1,000 mg Documented by: [id number] Amlodipine Besylate (Norvasc) 5 mg PO DAILY [facility] Stop: 03/07/20 08:59 Last Admin: 02/06/20 08:42 Dose: 5 mg Documented by: [id number] Ascorbic Acid (Vitamin C) 1,000 mg PO QAM [facility] Stop: 03/07/20 08:59 Last Admin: 02/06/20 08:37 Dose: 1,000 mg Documented by: [id number] Aspirin (Ecotrin Ectab) 81 mg PO BID [facility] Stop: 03/06/20 20:59 Last Admin: 02/06/20 20:31 Dose: 81 mg Documented by: [id number] Admin: 02/06/20 08:38 Dose: 81 mg Documented by: [id number] Admin: 02/05/20 20:29 Dose: 81 mg Documented by: [id number] Atorvastatin Calcium (Lipitor) 40 mg PO HS [facility] Stop: 03/06/20 20:59 Last Admin: 02/06/20 20:32 Dose: 40 mg Documented by: [id number] Admin: 02/05/20 20:28 Dose: 40 mg Documented by: [id number] Famotidine (Pepcid) 40 mg PO BID [facility] Stop: 03/06/20 20:59 Last Admin: 02/06/20 20:34 Dose: 40 mg Documented by: [id number] Admin: 02/06/20 08:37 Dose: 40 mg Documented by: [id number] Admin: 02/05/20 20:29 Dose: 40 mg Documented by: [id number] Metoprolol Succinate (Toprol Xl) 12.5 mg PO HS [facility] Stop: 03/06/20 20:59 Last Admin: 02/06/20 20:35 Dose: 12.5 mg Documented by: [id number] Admin: 02/05/20 20:27 Dose: 12.5 mg Documented by: [id number] Multivitamins (Multivitamin Tab) 0.5 tab PO BID [facility] Stop: 03/06/20 20:59 Last Admin: 02/06/20 20:33 Dose: 0.5 tab Documented by: [id number] Admin: 02/06/20 08:37 Dose: 0.5 tab Documented by: [id number] Admin: 02/05/20 20:26 Dose: 0.5 tab Documented by: [id number] Polyethylene Glycol (Miralax Powder Packet) 17 gm PO Q6 [facility] Stop: 03/07/20 05:59 Last Admin: 02/07/20 05:14 Dose: 17 gm Documented by: [id number] Admin: 02/06/20 23:32 Dose: 17 gm Documented by: [id number] Admin: 02/06/20 17:38 Dose: 17 gm Documented by: [id number] Admin: 02/06/20 12:24 Dose: 17 gm Documented by: [id number] Admin: 02/06/20 06:00 Dose: 17 gm Documented by: [id number] Potassium Chloride (Klor-Con M20) 20 meq PO TID [facility] Stop: 03/06/20 13:59 Last Admin: 02/06/20 20:32 Dose: 20 meq Documented by: [id number] Admin: 02/06/20 13:44 Dose: 20 meq Documented by: [id number] Admin: 02/06/20 08:37 Dose: 20 meq Documented by: [id number] Admin: 02/05/20 20:28 Dose: 20 meq Documented by: [id number] Admin: 02/05/20 14:37 Dose: 20 meq Documented by: [id number] Senna/Docusate Sodium (Senokot S) 2 tab PO HS [facility]G Stop: 03/06/20 20:59 Last Admin: 02/06/20 20:35 Dose: 2 tab Documented by: [id number] Admin: 02/05/20 20:29 Dose: 2 tab Documented by: [id number] Terazosin HCl (Hytrin) 5 mg PO [facility] Stop: 03/06/20 20:59 Last Admin: 02/06/20 20:31 Dose: 5 mg Documented by: [id number] Admin: 02/05/20 20:29 Dose: 5 mg Documented by: [id number] Tramadol HCl (Ultram) 50 - 100 mg PO Q4H PRN PRN Reason: Moderate-Severe Pain & Pre PT Stop: 03/06/20 12:55 Last Admin: 02/05/20 21:37 Dose: 50 mg Documented by: [id number] Zinc S[facility] (Z[facility] Sulfate) [facility] [place] Stop: 03/07/20 08:59 Last Admin: 02/06/20 08:37 Dose: 220 mg Documented by: [id number] Discontinued Medications Acetaminophen (Tylenol) 1,000 mg PO PREOP [facility] Stop: 02/05/20 18:00 Last Admin: 02/05/20 06:49 Dose: 1,000 mg Documented by: [id number] Bacitracin (Bacitracin) Confirm Administered Dose 50,000 units .ROUTE .STK-MED ONE Stop: 02/05/20 06:56 Last Admin: 02/05/20 08:35 Dose: 50,000 units Documented by: [id number] Bupivacaine HCl/Epinephrine Bitart (Bupivacaine 0.25%-Epi 1:[id number]) Confirm Administered Dose 30 ml .ROUTE .STK-MED ONE Stop: 02/05/20 06:56 Last Admin: 02/05/20 08:35 Dose: 25 ml Documented by: [id number] Celecoxib (Celebrex) 200 mg PO PREOP [facility] Stop: 02/05/20 18:00 Last Admin: 02/05/20 06:50 Dose: 200 mg Documented by: [id number] Gabapentin (Neurontin) 300 mg PO PREOP [facility] Stop: 02/05/20 18:00 Last Admin: 02/05/20 06:50 Dose: 300 mg Documented by: [id number] Hydrochlorothiazide (Hctz) 25 mg PO [facility] Stop: 03/06/20 13:59 Last Admin: 02/05/20 14:37 Dose: Not Given Documented by: [id number] Lactated Ringer's (Lr) 1,000 mls @ 15 mls/hr IV .Q24H [facility] Stop: 02/06/20 05:59 Last Infusion: 02/05/20 07:46 Dose: 0 mls/hr Documented by: [id number] Admin: 02/05/20 06:48 Dose: 15 mls/hr Documented by: [id number] Cefazolin Sodium (Ancef 2000mg) 2,000 mg in 15 mls @ 3.75 mls/min IV PREOP [facility]; Protocol Stop: 02/05/20 18:00 Last Admin: 02/05/20 07:46 Dose: 3.75 mls/min Documented by: [id number] Sodium Chloride (Nss 1000ml) 1,000 mls @ 150 mls/hr IV .Q6H40M [facility] Stop: 03/06/20 12:55 Last Infusion: 02/06/20 06:01 Dose: 0 mls/hr Documented by: [id number] Admin: 02/06/20 02:47 Dose: 150 mls/hr Documented by: [id number] Infusion: 02/06/20 02:47 Dose: 150 mls/hr Documented by: [id number] Admin: 02/05/20 20:19 Dose: 150 mls/hr Documented by: [id number] Infusion: 02/05/20 20:19 Dose: 150 mls/hr Documented by: [id number] Admin: 02/05/20 13:38 Dose: 150 mls/hr Documented by: [id number] Cefazolin Sodium (Ancef 2000mg) 2,000 mg in 15 mls @ 3.75 mls/min IV Q8H [facility]; Protocol Stop: 02/06/20 00:03 Last Admin: 02/05/20 23:37 Dose: 3.75 mls/min Documented by: [id number] Admin: 02/05/20 17:06 Dose: 3.75 mls/min Documented by: [id number] Miscellaneous (Floseal Hemostatic Matrix 10ml) 20 ml TOP ONCE ONE Stop: 02/05/20 08:33 Last Admin: 02/05/20 08:36 Dose: 45 ml Documented by: [id number] Valsartan (Diovan) 320 mg PO QAM [facility] Stop: 03/06/20 13:59 Last Admin: 02/05/20 14:37 Dose: Not Given Documented by: [id number]
[2020-02-07] MEDS: FAMOTIDINE 40 MG TABLET PO SCH ×2 (08:38→20:28)
[2020-02-07] MEDS: MULTIVITAMIN TAB PO SCH ×2 (08:38→20:27)
[2020-02-07] MEDS: POTASSIUM CHLORIDE 20 MEQ TABCR PO SCH ×3 (08:38→20:26)
[2020-02-07] MEDS: AMLODIPINE BESYLATE 5 MG TAB PO SCH (08:39)
[2020-02-07] MEDS: ZINC SULFATE 220 MG CAPSULE PO SCH (08:39)
[2020-02-07] MEDS: LOSARTAN/HCTZ 50/12.5MG TAB PO SCH (08:39)
[2020-02-07] MEDS: ASCORBIC ACID 500 MG TAB PO SCH (08:39)
[2020-02-07] MEDS: ASPIRIN 81 MG ECTAB PO SCH ×2 (08:39→20:25)
[2020-02-07 08:59] LABS: BUN Creatinine Ratio 16.9 (10-20); Calcium 8.6 mg/dl (8.5-10.1); Creatinine Clr Calc Pharmacy 74.6 ml/min; Est GFR (African American) 78.4; Est GFR (Non-African American) 67.7; Potassium 4.1 mmol/L (3.5-5.1)
--- NOTE | 2020-02-07 09:35 | Orthopedic Progress Note ---
Date of Service February 07, 2020 Assessment & Plan (1) Neurogenic claudication due to lumbar spinal stenosis: This time we will continue physical therapy monitor his ENRIQUE output anticipate possible discharge home tomorrow. Present on Admission?: Yes Admission and Anticipated Discharge Date Admission Date: February 05, 2020 Subjective Back pain is controlled leg symptoms markedly improved Physical Exam Physical Exam: Patient is good strength testing appears comfortable. Results & Data ([facility]) Vital Signs (Past 12 Hours) Vital Signs Temp Pulse Pulse Resp BP BP Pulse Ox 02/07/20 07:32 36.8 C 67 18 152/72 H 94 02/06/20 23:14 37.0 C 65 16 129/54 L 94
[2020-02-07] MEDS: DEXAMETHASONE SOD PHOSPHATE 8 MG in SYRINGE 0 ML IV SCH (10:20)
[2020-02-07] MEDS: TROLAMINE SALICYLATE 10% CRM 255 APPLN/85 GM TUBE EXT PRN ×2 (10:20→18:22)
[2020-02-07 11:30] LABS: Estimated Average Glucose 131 mg/dl; Hemoglobin A1C 6.2 % (4.5-5.6)
[2020-02-07] MEDS: TERAZOSIN HCL 5 MG CAP PO SCH (20:25)
[2020-02-07] MEDS: ATORVASTATIN 40 MG TAB PO SCH (20:26)
[2020-02-07] MEDS: DOCUSATE SODIUM/SENNA 50/8.6MG TAB PO SCH (20:28)
[2020-02-07] MEDS: METOPROLOL SUCC 25MG EXT REL TAB PO SCH (20:29)
[2020-02-08] MEDS: POLYETHYLENE (MIRALAX) 17 GM PACK PO SCH (05:47)
[2020-02-08] MEDS: ACETAMINOPHEN 500 MG TAB PO PRN (05:47)
[2020-02-08] MEDS: TROLAMINE SALICYLATE 10% CRM 255 APPLN/85 GM TUBE EXT PRN (05:49)
[2020-02-08 08:40] LABS: Hematocrit (blood only) 28.9 % (42-52); Hemoglobin 9.5 g/dL (14.0-18.0); Immature Granulocytes # (auto) 0.02 K/uL (0.00-0.02); Immature Granulocytes % (auto) 0.2 %; Lymphocytes # (auto) 0.88 K/uL (1.2-3.4); Lymphocytes % (auto) 8.4 %; Mean Corpuscular Hemoglobin 30.4 pg (25-34); Mean Corpuscular Volume 92.6 fL (80-100); Monocytes # (auto) 0.84 K/uL (0.11-0.59); Neutrophils # (auto) 8.72 K/uL (1.4-6.5); Neutrophils % (auto) 83.4 %; Platelet Count 172 K/uL (130-400); RDW Coefficient of Variation 13.4 % (11.5-14.5); RDW Standard Deviation 45.3 fL (36.4-46.3); Red Blood Count 3.12 M/uL (4.7-6.1); White Blood Count 10.46 K/uL (4.8-10.8)
[2020-02-08 08:43] LABS: Mean Corpuscular Hgb Conc 32.9 g/dL (32-36)
--- NOTE | 2020-02-08 09:02 | Hospitalist Progress Note ---
Date of Service February 08, 2020 Assessment & Plan (1) S/P spinal surgery: (2) Neurogenic claudication due to lumbar spinal stenosis: This is a 79-year-old male with PMH of CAD (s/p 4 vessel CABG in 2007), HTN, history of CVA without residual deficits, chronic chest pain, PEGGY on CPAP and other medical problems listed below who is POD#3 s/p lumbar decompression with bilateral medial facetectomies and foraminotomies L2-3, L3-4, L4-5 L5-S1 and posterior spinal fusion L2-3, L3-4, L4-5 and L5-S1. POD#3 s/p lumbar decompression and fusion by Dr. Smith EBL: 1,000mL; ENRIQUE Drain 1325mL Pt is doing well post-operatively pain/wound management per ortho activities and therapy as directed by ortho encourage incentive spirometry DVT ppx per ortho (3) Acute blood loss anemia: Pre-op hgb 13.1. EBL 1,000ml with post-op hgb of 10.9. continued ENRIQUE output hgb 9.5 this morning, remains asymptomatic with good hemodynamics no need for transfusion at this time (4) Pre-diabetes: A1c 6.2 New diagnosis per patient Educated patient regarding dietary counseling and lifestyle modifications Offered chief order dispatcher for education, patient declined Recommended to follow-up with PCP with repeat A1c in 6 months (5) CAD (coronary artery disease): no chest pain/sob continue home meds (6) S/P CABG x 4: Continue aspirin, statin, metoprolol no CP/SOB (7) HTN (hypertension): Current regimen includes amlodipine, losartan-hctz and metoprolol Resume losartan-hctz tomorrow this a.m. (8) History of CVA (cerebrovascular accident): Complication of 4v CABG in 2007. No residual deficits continue asa/statin (9) GERD (gastroesophageal reflux disease): Continue Pepcid BID (10) PEGGY (obstructive sleep apnea): CPAP at PCP: Sukhdeep ([facility]) Dispo: Per primary service Patient seen in collaboration with Dr. Damian. Please see addendum. Thank you for this consultation. We will follow the patient with you during their hospital stay. You can reach a member of the [facility] Hospitalist Team 22/03 via pager @ [phone]. Admission and Anticipated Discharge Date Admission Date: February 05, 2020 Supervising Physician Co-Signing Physician Notes I, Dr. Steven Damian, have seen and assessed the patient with physician museum assistant and agree with the assessment and plan as above and would like to comment that on exam General: no acute distress Lungs: clear to auscultation bilaterally Chest: no chest pain, no palpitations Abdomen: somewhat distended, no tenderness to palpation, patient reports he is passing gas Back: ENRIQUE drain attached Neuro: no focal motor deficits on my exam when patient sitting upright on chair Assessment and plan -Patient seen by physician museum assistant and myself. Patient reports that Dr. Smith will be discharging him today. He has ENRIQUE drain to the back so this would need removal before hospital discharge. blood counts are reasonably stable recently. Physician museum assistant had discussed with patient about HbA1c. Patient feeling well. He does not not have acute pain -hospitalist team will sign off as orthopedic servie discharging the patient Subjective Patient seen and examined in room 311. Follow-up lumbar surgery by Dr. Smith POD #3. Overall he feels well this morning. He had large BM yesterday. He denies fever, chills, sweats, lightheadedness, dizziness, chest pain, shortness breath, nausea, vomiting, abdominal pain. Physical therapy has gone well. He is urinating without difficulty. Appetite is well and tolerating p.o. intake without difficulty. No acute concerns this morning. Review of Systems Review of Systems: All systems reviewed & are unremarkable except as noted in HPI & below Physical Exam Physical Exam: Gen: WD/WN, M, NAD, A&O x3, sitting up in bedside chair HEENT: Normocephalic, atraumatic, conjunctivae moist, sclerae anicteric, mucous membranes moist. Lung: Clear to Auscultation bilaterally, no wheezes/rales/rhonchi Heart: Regular rate, regular rhythm, soft 1/6 ОЛЬГА heard best cardiac apex, rubs, or gallops Abdomen:protuberant abd, nondistended, Soft, NT, +BS x 4 Extremities: No edema, b/l venous stasis chronic changes, Skin: Warm, no rash, negative turgor. ENRIQUE drain with serosanguineous drainage Results & Data Results & Data ([facility]) Vital Signs (Past 12 Hours) Vital Signs Temp Pulse Resp BP BP Pulse Ox 06/11/20 08:25 36.8 C 89 18 164/65 H 93 02/07/20 23:00 36.6 C 78 14 162/72 H 93 Laboratory Results Short CBC 02/08/20 Range/Units 08:27 WBC 10.46 (4.8-10.8) K/uL Hgb 9.5 L (14.0-18.0) g/dL Hct 28.9 L (42-52) % Plt Count 172 (130-400) K/uL BMP 02/07/20 08:08 Sodium 139 Potassium 4.1 Chloride 106 Carbon Dioxide 28 BUN 18 Creatinine 1.05 Glucose 138 H Calcium 8.6 Medications Administered Acetaminophen (Tylenol) 1,000 mg PO Q8H PRN PRN Reason: MILD Pain Scale 1,2,3 & Pre PT Stop: 03/06/20 12:55 Last Admin: 02/08/20 05:47 Dose: 1,000 mg Documented by: [id number] Admin: 02/07/20 21:25 Dose: 1,000 mg Documented by: [id number] Admin: 02/07/20 13:12 Dose: 1,000 mg Documented by: [id number] Admin: 02/07/20 04:31 Dose: 1,000 mg Documented by: [id number] Admin: 02/06/20 20:36 Dose: 1,000 mg Documented by: [id number] Admin: 02/06/20 12:26 Dose: 1,000 mg Documented by: [id number] Admin: 02/06/20 02:48 Dose: 1,000 mg Documented by: [id number] Admin: 02/05/20 14:36 Dose: 1,000 mg Documented by: [id number] Amlodipine Besylate (Norvasc) 5 mg PO DAILY [facility] Stop: 03/07/20 08:59 Last Admin: 02/07/20 08:39 Dose: 5 mg Documented by: [id number] Admin: 02/06/20 08:42 Dose: 5 mg Documented by: [id number] Ascorbic Acid (Vitamin C) 1,000 mg PO QAM [facility] Stop: 03/07/20 08:59 Last Admin: 02/07/20 08:39 Dose: 1,000 mg Documented by: [id number] Admin: 02/06/20 08:37 Dose: 1,000 mg Documented by: [id number] Aspirin (Ecotrin Ectab) 81 mg PO BID [facility] Stop: 03/06/20 20:59 Last Admin: 02/07/20 20:25 Dose: 81 mg Documented by: [id number] Admin: 02/07/20 08:39 Dose: 81 mg Documented by: [id number] Admin: 02/06/20 20:31 Dose: 81 mg Documented by: [id number] Admin: 02/06/20 08:38 Dose: 81 mg Documented by: [id number] Admin: 02/05/20 20:29 Dose: 81 mg Documented by: [id number] Atorvastatin Calcium (Lipitor) 40 mg PO HS [facility] Stop: 03/06/20 20:59 Last Admin: 02/07/20 20:26 Dose: 40 mg Documented by: [id number] Admin: 02/06/20 20:32 Dose: 40 mg Documented by: [id number] Admin: 02/05/20 20:28 Dose: 40 mg Documented by: [id number] Famotidine (Pepcid) 40 mg PO BID [facility] Stop: 03/06/20 20:59 Last Admin: 02/07/20 20:28 Dose: 40 mg Documented by: [id number] Admin: 02/07/20 08:38 Dose: 40 mg Documented by: [id number] Admin: 02/06/20 20:34 Dose: 40 mg Documented by: [id number] Admin: 02/06/20 08:37 Dose: 40 mg Documented by: [id number] Admin: 02/05/20 20:29 Dose: 40 mg Documented by: [id number] HCTZ/Losartan Potassium (Hyzaar 50/12.5mg) 1 tab PO DAILY [facility] Stop: 03/08/20 08:59 Last Admin: 02/07/20 08:39 Dose: 1 tab Documented by: [id number] Dexamethasone Sodium Phosphate (8 mg/ Syringe) 2 mls @ 1 mls/min IV DAILY [facility] Stop: 03/08/20 10:29 Last Admin: 02/07/20 10:20 Dose: 1 mls/min Documented by: [id number] Metoprolol Succinate (Toprol Xl) 12.5 mg PO HS [facility] Stop: 03/06/20 20:59 Last Admin: 02/07/20 20:29 Dose: 12.5 mg Documented by: [id number] Admin: 02/06/20 20:35 Dose: 12.5 mg Documented by: [id number] Admin: 02/05/20 20:27 Dose: 12.5 mg Documented by: [id number] Multivitamins (Multivitamin Tab) 0.5 tab PO BID [facility] Stop: 03/06/20 20:59 Last Admin: 02/07/20 20:27 Dose: 0.5 tab Documented by: [id number] Admin: 02/07/20 08:38 Dose: 0.5 tab Documented by: [id number] Admin: 02/06/20 20:33 Dose: 0.5 tab Documented by: [id number] Admin: 02/06/20 08:37 Dose: 0.5 tab Documented by: [id number] Admin: 02/05/20 20:26 Dose: 0.5 tab Documented by: [id number] Polyethylene Glycol (Miralax Powder Packet) 17 gm PO Q6 [facility] Stop: 03/07/20 05:59 Last Admin: 02/08/20 05:47 Dose: 17 gm Documented by: [id number] Admin: 02/07/20 23:46 Dose: 17 gm Documented by: [id number] Admin: 02/07/20 17:52 Dose: 17 gm Documented by: [id number] Admin: 02/07/20 12:03 Dose: 17 gm Documented by: [id number] Admin: 02/07/20 05:14 Dose: 17 gm Documented by: [id number] Admin: 02/06/20 23:32 Dose: 17 gm Documented by: [id number] Admin: 02/06/20 17:38 Dose: 17 gm Documented by: [id number] Admin: 02/06/20 12:24 Dose: 17 gm Documented by: [id number] Admin: 02/06/20 06:00 Dose: 17 gm Documented by: [id number] Potassium Chloride (Klor-Con M20) 20 meq PO TID [facility] Stop: 03/06/20 13:59 Last Admin: 02/07/20 20:26 Dose: 20 meq Documented by: [id number] Admin: 02/07/20 13:12 Dose: 20 meq Documented by: [id number] Admin: 02/07/20 08:38 Dose: 20 meq Documented by: [id number] Admin: 02/06/20 20:32 Dose: 20 meq Documented by: [id number] Admin: 02/06/20 13:44 Dose: 20 meq Documented by: [id number] Admin: 02/06/20 08:37 Dose: 20 meq Documented by: [id number] Admin: 02/05/20 20:28 Dose: 20 meq Documented by: [id number] Admin: 02/05/20 14:37 Dose: 20 meq Documented by: [id number] Senna/Docusate Sodium (Senokot S) 2 tab PO [facility] Stop: 03/06/20 20:59 Last Admin: 02/07/20 20:28 Dose: 2 tab Documented by: [id number] Admin: 02/06/20 20:35 Dose: 2 tab Documented by: [id number] Admin: 02/05/20 20:29 Dose: 2 tab Documented by: [id number] Terazosin HCl (Hytrin) 5 mg PO [facility] Stop: 03/06/20 20:59 Last Admin: 02/07/20 20:25 Dose: 5 mg Documented by: [id number] Admin: 02/06/20 20:31 Dose: 5 mg Documented by: [id number] Admin: 02/05/20 20:29 Dose: 5 mg Documented by: [id number] Tramadol HCl (Ultram) 50 - 100 mg PO Q4H PRN PRN Reason: Moderate-Severe Pain & Pre PT Stop: 03/06/20 12:55 Last Admin: 02/05/20 21:37 Dose: 50 mg Documented by: [id number] Trolamine Salicylate (Myoflex) 1 appln EXT TID PRN PRN Reason: leg pain Stop: 03/08/20 07:47 Last Admin: 02/08/20 05:49 Dose: 1 appln Documented by: [id number] Admin: 02/07/20 18:22 Dose: 1 appln Documented by: [id number] Admin: 02/07/20 10:20 Dose: 1 appln Documented by: [id number] Zinc Sulfate (Zinc Sulfate) 220 mg PO QAM [facility] Stop: 03/07/20 08:59 Last Admin: 02/07/20 08:39 Dose: 220 mg Documented by: [id number] Admin: 02/06/20 08:37 Dose: 220 mg Documented by: [id number] Discontinued Medications Acetaminophen (Tylenol) 1,000 mg PO PREOP [facility] Stop: 02/05/20 18:00 Last Admin: 02/05/20 06:49 Dose: 1,000 mg Documented by: [id number] Bacitracin (Bacitracin) Confirm Administered Dose 50,000 units .ROUTE .STK-MED ONE Stop: 02/05/20 06:56 Last Admin: 02/05/20 08:35 Dose: 50,000 units Documented by: [id number] Bupivacaine HCl/Epinephrine Bitart (Bupivacaine 0.25%-Epi 1:[id number]) Confirm Administered Dose 30 ml .ROUTE .STK-MED ONE Stop: 02/05/20 06:56 Last Admin: 02/05/20 08:35 Dose: 25 ml Documented by: [id number] Celecoxib (Celebrex) 200 mg PO PREOP [facility] Stop: 02/05/20 18:00 Last Admin: 02/05/20 06:50 Dose: 200 mg Documented by: [id number] Gabapentin (Neurontin) 300 mg PO PREOP [facility] Stop: 02/05/20 18:00 Last Admin: 02/05/20 06:50 Dose: 300 mg Documented by: [id number] Hydrochlorothiazide (Hctz) 25 mg PO QAM [facility] Stop: 03/06/20 13:59 Last Admin: 02/05/20 14:37 Dose: Not Given Documented by: [id number] Lactated Ringer's (Lr) 1,000 mls @ 15 mls/hr IV .Q24H [facility] Stop: 02/06/20 05:59 Last Infusion: 02/05/20 07:46 Dose: 0 mls/hr Documented by: [id number] Admin: 02/05/20 06:48 Dose: 15 mls/hr Documented by: [id number] Cefazolin Sodium (Ancef 2000mg) 2,000 mg in 15 mls @ 3.75 mls/min IV PREOP [facility]; Protocol Stop: 02/05/20 18:00 Last Admin: 02/05/20 07:46 Dose: 3.75 mls/min Documented by: [id number] Sodium Chloride (Nss 1000ml) 1,000 mls @ 150 mls/hr IV .Q6H40M [facility] Stop: 03/06/20 12:55 Last Infusion: 02/06/20 06:01 Dose: 0 mls/hr Documented by: [id number] Admin: 02/06/20 02:47 Dose: 150 mls/hr Documented by: [id number] Infusion: 02/06/20 02:47 Dose: 150 mls/hr Documented by: [id number] Admin: 02/05/20 20:19 Dose: 150 mls/hr Documented by: [id number] Infusion: 02/05/20 20:19 Dose: 150 mls/hr Documented by: [id number] Admin: 02/05/20 13:38 Dose: 150 mls/hr Documented by: [id number] Cefazolin Sodium (Ancef 2000mg) 2,000 mg in 15 mls @ 3.75 mls/min IV Q8H [facility]; Protocol Stop: 02/06/20 00:03 Last Admin: 02/05/20 23:37 Dose: 3.75 mls/min Documented by: [id number] Admin: 02/05/20 17:06 Dose: 3.75 mls/min Documented by: [id number] Miscellaneous (Floseal Hemostatic Matrix 10ml) 20 ml TOP ONCE ONE Stop: 02/05/20 08:33 Last Admin: 02/05/20 08:36 Dose: 45 ml Documented by: [id number] Valsartan (Diovan) 320 mg PO QAM [facility] Stop: 03/06/20 13:59 Last Admin: 02/05/20 14:37 Dose: Not Given Documented by: [id number]
[2020-02-08] MEDS: DEXAMETHASONE SOD PHOSPHATE 8 MG in SYRINGE 0 ML IV SCH (09:06)
[2020-02-08] MEDS: MULTIVITAMIN TAB PO SCH (09:07)
[2020-02-08] MEDS: FAMOTIDINE 40 MG TABLET PO SCH (09:07)
[2020-02-08] MEDS: AMLODIPINE BESYLATE 5 MG TAB PO SCH (09:07)
[2020-02-08] MEDS: ZINC SULFATE 220 MG CAPSULE PO SCH (09:07)
[2020-02-08] MEDS: LOSARTAN/HCTZ 50/12.5MG TAB PO SCH (09:07)
[2020-02-08] MEDS: POTASSIUM CHLORIDE 20 MEQ TABCR PO SCH (09:08)
[2020-02-08] MEDS: ASPIRIN 81 MG ECTAB PO SCH (09:08)
[2020-02-08] MEDS: ASCORBIC ACID 500 MG TAB PO SCH (09:08)
--- NOTE | 2020-02-08 09:45 | Discharge Summary ---
Date of Service February 08, 2020 Admission HPI Per Admitting Provider This is a 79-year-old male presents with chronic persistent back and bilateral leg pain after failing extensive course of nonoperative care is here for surgical invention. Principal Diagnosis Lumbar spinal stenosis with neurogenic claudication Discharge Data Allergies Allergy/AdvReac Type Severity Reaction Status Date / Time antivenin,crotalidae Allergy Intermediate Hives Verified 02/05/20 06:29 polyvalent imm Consultations 02/05/20 12:56 Consult Case Management - Discharge Planning Routine Consult Hospitalist Routine Procedures Performed Operation Date: 02/05/20 07:45 Actual Procedures p L2-S1 Decompression Fusion, Spinal Cord Monitoring(Not Applicable) - Blayne Smith DO Ordered Studies 02/05/20 07:45 FL fluoroscopy <1hr Routine FL lumbar spine 2-3V Routine Hospital Course (1) Neurogenic claudication due to lumbar spinal stenosis: Patient underwent lumbar decompression fusion tolerated this well was taken to orthopedic for postoperative. Postop day 1 he was up and ambulating progressing probably. He progressed to postop day 2 postop day 3 ENRIQUE drain decreased probably. Excellent strength testing. Subsequently discharged home. Discharge orders and instructions from the chart for further review. Total Time Total Time Spent Total Time Spent (In Minutes): 20 minutes Discharge Plan Discharge Items Patient Disposition: Home - Home Health Services Reason For Visit: Spinal Stenosis, Lumbar Region without Naurogenic Discharge Diagnosis: Lumbar spinal stenosis with neurogenic claudication Activity: As commented below Non-emergency contact: Primary Care Provider Call non-emergency contact if: you have any medication questions Follow-up/Referrals: Kelly Tarango MD [Primary Care Provider] - Diet: Regular Addtl Attending Provider Instructions: Your blood glucose was noted to be elevated during your hospital stay. Your hemoglobin A1C was 6.2 which is consistent with Pre-Diabetes. Weight loss and increased physical activity when able is encouraged. Recommend follow up with your primary care provider to have repeat A1C in 6 months. Addtl Vice President Supply Chain Provider Instructions: ACTIVITY RECOMMENDATIONS: SELF CARE INSTRUCTIONS AFTER THORACIC/LUMBAR FUSIONS 1. You may walk to your tolerance. It is good exercise for your legs and back. Expect some back and intermittent leg aches and pains. 2. You may perform "counter-top" level activities (make a sandwich, willy with a project, etc.). 3. No bending or lifting of more than 10 pounds or back twisting of any nature (roll like a log when turning in bed). 4. You may ride in a car for 20-30 minutes at a time. No driving until after your first visit with your doctor. 5. Frequent changes of position and restricting sitting to 30 minutes at a time will help limit the amount of back spasms and stiffness you may experience. 6. You may discontinue the use of ambulatory aids (cane, crutches, etc.) once your strength and confidence allow. 7. You may printer technician the shower and let water strike your incision when you arrive home at least once daily. Do not take a tub bath, sit in a hot tub or go into a swimming pool until after your first recheck in the office. SPECIAL CARE INSTRUCTIONS: VERY IMPORTANT TO READ AND REVIEW A. Your surgical incision has been closed with a cosmetic suture under the skin that will dissolve in about 6 weeks. In 14 days, you can use a pair of clean scissors and cut the suture that is left outside of the skin at the ends of your incision. 1. The small skin tapes can be removed 7 days after surgery if they have not fallen off by that point. 2. You may keep the wound open to air as much as possible to promote healing after post-op day number 5 unless told otherwise by your doctor. 3. If you think the wound looks like it is becoming infected (redness or worsening drainage) and/or you are experiencing fever, chill or worsening back pain and muscle spasms, contact the office so that we may evaluate you as soon as possible. B. Complications are uncommon, but please contact us if you have any signs or symptoms of: 1. wound infection (fever higher than 102.5 degrees F, redness, separation of wound, drainage, or increasing pain from the incision) 2. blood clots in legs (pain, swelling, redness and warmth in legs) 3. urinary tract infection (fever higher than 102.5 degrees F, burning upon urination or increased frequency of urination) 4. nerve problems (inability to walk on your toes or heels, numbness, loss of bowel or bladder control) 5. any other symptoms that concern you C. Please call the office at if you have any concerns or questions about your operation or recovery. D. No smoking! Smoking drastically decreases the chance of a solid fusion. E. Do not take any anti-inflammatory medications (Indocin, Advil, Motrin, Aspirin, Naprosyn, etc.) as these may inhibit the chance of a solid fusion. Tylenol is okay to take for pain. MANAGING PAIN AFTER SPINAL SURGERY 1. Narcotic medication is intended for short-term use and will be provided for surgical pain. Surgical pain usually lasts for a period of 4-6 weeks. Narcotic medication includes Percocet, Vicodin, Darvocet, Tylenol #3 or Lortab. 2. Longer-term pain is more appropriately treated with non-narcotic medication such as Tylenol ES. 3. Muscle spasm is not appropriately treated with narcotics. Muscle relaxers such as Soma, Flexeril or Skelaxin can be used along with Tylenol ES. 4. Remember that we all live with some "aches and pains". This is not unusual or uncommon after an injury or as we get older. a. Back pain is expected and may include muscle spasms for 4 to 6 weeks after surgery. The pain should gradually improve. If the pain worsens for no apparent reason, please contact the office. b. Intermittent leg pain may also be experienced and should not be concerned about unless it worsens for no apparent reason. If so, please contact the office. 5. We will provide appropriate medication within the normal guidelines of their prescribed use. We will also be very cautious and aware of potential abuse and extended duration of patients' medication needs. a. Pain medications are for your comfort and to assist with sleep and rest so that the tissue can heal. They are not provided in order to return to normal activity and should not be used through the day. To do so or worsening pain at night can result from ongoing tissue damage and development of tolerance to the prescribed medicine. 6. Please allow 2-3 days to process refills. Prescriptions will not be mailed but must be picked up at the office. FOLLOW UP VISIT: Keep your scheduled follow-up appointment. Any questions, please call the office at . Pending Studies at Discharge: No Stand-Alone Forms: My [employer], Smoking Cessation Medications and DC Order Prescriptions: New tramadol 50 mg tablet 50 mg PO Q6H PRN (Reason: pain, moderate) Qty: 30 RF: 0 oxycodone 5 mg tablet 5 mg PO Q6H PRN (Reason: pain, severe) Qty: 30 RF: 0 Continued biotin 1 mg tablet 1 mg PO QAM RF: 0 coenzyme Q10 200 mg capsule 200 mg PO QAM RF: 0 atorvastatin 40 mg tablet 40 mg PO HS RF: 0 metoprolol tartrate 25 mg tablet 12.5 mg PO HS RF: 0 multivitamin [Daily Multi-Vitamin] tablet 0.5 tab PO BID RF: 0 nitroglycerin 0.4 mg tablet, sublingual 0.4 mg SL UD PRN (Reason: Angina) RF: 0 potassium chloride 10 mEq capsule, extended release 20 meq PO TID RF: 0 terazosin 5 mg capsule 5 mg PO HS RF: 0 triamcinolone acetonide 0.1 % ointment 1 applic topical UD PRN (Reason: Rash) Qty: 1 RF: 0 zinc 50 mg tablet 50 mg PO QAM RF: 0 ascorbic acid (vitamin C) [Vitamin C] 1,000 mg Tablet 1 g PO QAM RF: 0 famotidine 40 mg Tablet 40 mg PO BID RF: 0 aspirin [Aspirin Low Dose] 81 mg Tablet,Delayed Release (Dr/Ec) 81 mg PO BID RF: 0 Metamucil 3.4 gram/5.4 gram Powder 2 tbsp PO QAM RF: 0 acetaminophen [Tylenol Extra Strength] 500 mg Tablet 500 mg PO Q6H PRN (Reason: Pain) RF: 0 amlodipine 5 mg tablet 5 mg PO DAILY RF: 0 losartan-hydrochlorothiazide 100-25 mg tablet 1 tab PO DAILY RF: 0 omega 9-[id number] oil [Fish Oil] 1,000 mg (120 mg-180 mg) Capsule 1 cap PO DAILY RF: 0 Discharge Orders: Discharge Order (Routine); Ordered 02/08/20 Ordered By: Blayne Mclean/Other Patient Handouts: A1C Admission Data Admit Date/Time: 02/05/20 11:23 Attending Provider: Blayne Smith Admit Provider: Blayne Smith Primary Care Provider: Kelly Tarango Other Providers: Steven Damian
== END 2020-02-08 11:42 | disposition home or self-care (01) | DRG 454 ==
LOC: ASU 06:07 → 3E 11:23

== ENCOUNTER 2022-11-23 22:04 | Inpatient (IN) ==
[2022-11-23 23:06] LABS: Basophils # (auto) 0.03 K/uL (0-0.2); Basophils % (auto) 0.3 %; Eosinophils # (auto) 0.01 K/uL (0-0.50); Eosinophils % (auto) 0.1 %; Hematocrit (blood only) 39.7 % (42.0-52.0); Hemoglobin 13.4 g/dl (14.0-18.0); Immature Granulocytes # (auto) 0.06 K/uL (0.01-0.20); Immature Granulocytes % (auto) 0.6 %; Lymphocytes # (auto) 0.89 K/uL (1.2-3.4); Lymphocytes % (auto) 8.3 %; Mean Corpuscular Hemoglobin 31.2 pg (25.0-34.0); Mean Corpuscular Hgb Conc 33.8 g/dL (32.0-36.0); Mean Corpuscular Volume 92.5 fL (80.0-100.0); Mean Platelet Volume 9.1 fL (9.4-12.4); Monocytes # (auto) 1.12 K/uL (0.11-0.59); Monocytes % (auto) 10.5 %; Neutrophils # (auto) 8.57 K/uL (1.40-6.50); Neutrophils % (auto) 80.2 %; Platelet Count 201 K/uL (130-400); RDW Coefficient of Variation 12.6 % (11.5-14.5); Red Blood Count 4.29 M/uL (4.70-6.10); White Blood Count 10.68 K/ul (4.8-10.8)
[2022-11-23 23:25] LABS: INR 1.1 (0.9-1.1); Partial Thromboplastin Ratio 1.1; Partial Thromboplastin Time 30.8 Seconds (21.0-31.0); Prothrombin Time 11.2 Seconds (9.0-12.0)
[2022-11-23 23:49] LABS: Albumin Globulin Ratio 1.5 (0.9-2); Albumin Level 4.4 gm/dl (3.4-5.0); BUN Creatinine Ratio 11.3 (10-20); Bilirubin,Total 1.5 mg/dl (0.2-1.0); Calcium 9.3 mg/dl (8.6-10.3); Creatinine Clr Calc Pharmacy 49.8 ml/min; Est GFR (African American) 49.5 ml/min; Est GFR (Non-African American) 42.7 ml/min; Potassium 4.5 mmol/L (3.5-5.1); Total Protein 7.4 gm/dl (6.0-8.3)
[2022-11-23 23:55] LABS: Troponin I High Sensitivity 28.4 pg/ml (0-20)
--- NOTE | 2022-11-24 01:47 | Emergency Department Note ---
History of Present Illness General Chief complaint: Chest Pain Stated complaint: CHEST PAIN,HEADACHE,CHILLS,BACK PAIN Time Seen by Provider: 11/24/22 01:14 History of Present Illness Maximum Pain Intensity: 6 82-year-old male presents emergency department with 2-day history of intermitten t chest pain and right upper quadrant abdominal pain. Patient states it started yesterday after eating. Patient states pain in the right upper quadrant radiated up into his chest. Patient states headache generalized dizziness. Patient denies vomiting denies diarrhea. Patient states that he has a history of gallstones; patient denies current chest pain or shortness of breath. There are no other mitigating or alleviating factors Home Medications Medication Instructions Recorded Confirmed Type biotin 1 mg tablet 1 mg PO QAM 06/15/19 11/24/22 History coenzyme Q10 200 mg capsule 200 mg PO QAM 06/15/19 11/24/22 History metoprolol tartrate 25 mg tablet 12.5 mg PO HS 06/15/19 11/24/22 History multivitamin (Daily Multi-Vitamin 0.5 tab PO BID 06/15/19 11/24/22 History tablet) nitroglycerin 0.4 mg sublingual 0.4 mg sublingual UD PRN Angina 06/15/19 11/24/22 History tablet triamcinolone acetonide 0.1 % 1 applic topical UD PRN Rash #1 g 06/15/19 11/24/22 History topical ointment zinc 50 mg tablet 50 mg PO QAM 06/15/19 11/24/22 History ascorbic acid (vitamin C) 1,000 mg 1 g PO QAM 11/30/19 11/24/22 History tablet (Vitamin C) psyllium husk 3.4 gram/5.4 gram 2 tsp PO QAM 11/30/19 11/24/22 History oral powder (Metamucil) acetaminophen 500 mg tablet 500 mg PO Q6H PRN Pain 02/05/20 11/24/22 History (Tylenol Extra Strength) amlodipine 5 mg tablet 5 mg PO QAM 02/05/20 11/24/22 History furosemide 20 mg tablet (Lasix) 20 mg PO QAM 01/07/21 11/24/22 History spironolactone 25 mg tablet 25 mg PO QAM 01/07/21 11/24/22 History (Aldactone) aspirin 81 mg tablet,delayed 81 mg PO HS 05/14/21 11/24/22 History release (Chanelle Low Dose Aspirin) potassium chloride 10 mEq 10 meq PO TID 05/14/21 11/24/22 History capsule,extended release losartan 100 mg tablet (Cozaar) 100 mg PO QAM #90 tabs 04/17/22 11/24/22 Rx albuterol sulfate 90 mcg/actuation 2 puff inhalation Q4H PRN 09/24/22 11/24/22 Rx aerosol inhaler shortness of breath or wheezing #8.5 grams atorvastatin 40 mg tablet 40 mg PO HS #90 tabs 10/05/22 11/24/22 Rx famotidine 20 mg tablet (Pepcid) 20 mg PO BID #180 tabs 10/05/22 11/24/22 Rx terazosin 2 mg capsule 4 mg PO DAILY #180 caps 10/08/22 11/24/22 Rx apixaban 2.5 mg tablet (Eliquis) 2.5 mg PO BID 11/24/22 11/24/22 History Allergies Allergy/AdvReac Type Severity Reaction Status Date / Time antivenin,crotalidae Allergy Intermediate Hives Verified 11/24/22 02:49 polyvalent imm Past Med/Surg History Medical History 2018 novel coronavirus not detected Back pain with history of spinal surgery Dr Smith CAD (coronary artery disease) s/p CABG x4 (2007) Chronic back pain Chronic low back pain Close exposure to 2019 novel coronavirus Close exposure to 2019-nCoV Cough GERD (gastroesophageal reflux disease) controlled Hearing loss in left ear Hx of cardiac pacemaker 2020 Hyperlipidemia Hypertension Medicare annual wellness visit, subsequent Nasal congestion Osteoarthritis Prediabetes Retained metal fragment right knee d/t accident Right knee DJD Sleep apnea CPAP SNHL (sensorineural hearing loss) Spinal stenosis Transient ischemic attack (TIA) TIA vs CVA (2007)/a few days after CABG/no neurologist, no deficits Ulnar nerve palsy Surgical History History of appendectomy History of arthroscopy of right knee x2 meniscus repair History of basal cell carcinoma (BCC) excision right arm History of bilateral carpal tunnel release History of bilateral cataract extraction History of cardiac cath 2008 @ [facility] [place], no stents History of colonoscopy History of surgery left ring finger fx repair--hardware removed History of tonsillectomy History of total right knee replacement (TKR) History of wisdom tooth extraction Hx of vasectomy S/P CABG x 4 [facility] @ 2007--follows with Dr. Mayes S/P placement of cardiac pacemaker Status post anal fissurectomy Status post Mohs surgery on left cheek Family History Mother Angina pectoris Family history of diabetes mellitus Father Myocardial infarction Grandmother Cancer Grandfather Cardiac disorder Cancer Grandmother (Maternal) Family history of diabetes mellitus Social History Smoking Status: Never smoker Tobacco Type: Cigarettes Second Hand Exposure: Yes (AT WORK YRS AGO); Hx Alcohol Use: No Hx Substance Use: No Preferred Language: Japanese Communication Ability: Effective Bench Mechanic Required: No Beliefs That Will Affect Care: None marital status: Current Living Situation: Spouse current occupational status: retired Feels Safe at Home: Yes Seatbelt Use: always Assistive Devices: Walker Review of Systems A total of 10 systems reviewed and were otherwise negative Cardiovascular: + chest pain Gastrointestinal: + abdominal pain Physical Exam Vital Signs Vital Signs - 24 hr 11/23/22 22:09 11/24/22 01:17 11/24/22 02:30 Temperature 37.2 C Temperature Source Temporal Artery Scan Oral Pulse Rate 94 H 78 Pulse Rate [Apical] 93 H Pulse Rate from SpO2 Sensor 78 Respiratory Rate 20 22 22 Respiratory Effort / Characteristics Non-Labored Spontaneous Respiratory Depth Normal Blood Pressure 158/88 H 136/66 Blood Pressure [Right Arm] 170/78 H Blood Pressure Mean 111 89 Blood Pressure Mean [Right Arm] 108 Blood Pressure Position [Right Arm] Lying Pulse Oximetry 94 93 92 Oxygen Delivery Method Room Air Room Air Sepsis New/Unexplained Change in Mental Status N/A Sepsis Action Taken by Nursing No Action Required GENERAL: Patient is awake alert in no acute distress patient is resting comfortably and showing no signs of anxiety EYES: The conjunctivae are clear. The pupils are round and reactive. EARS, NOSE, MOUTH AND THROAT: The nose is without any evidence of any deformity. Mucous membranes are moist. Tongue is midline. NECK: The neck is nontender and supple. RESPIRATORY: Normal respiratory effort is noted there is no evidence of wheezing rhonchi or rales CARDIOVASCULAR: Regular rate and rhythm noted there no murmurs rubs or gallops normal S1 normal S2. GASTROINTESTINAL: The abdomen is soft. Abdomen is right upper quadrant tenderness no rebound rigidity guarding BACK: No midline tenderness or or step-off noted range of motion in flexion extension as well as rotation no signs of muscle spasm noted MUSCULOSKELETAL/EXTREMITIES: There is no evidence of gross deformity full range of motion is noted in the hips and shoulders. SKIN: There is no obvious evidence of any rash. There are no petechiae, pallor or cyanosis noted. NEUROLOGIC: Patient is awake alert and oriented x3 strength is symmetric Course Reevaluation(s) Reevaluation #1: Patient is resting in no distress, started on IV Zosyn, will be admitted Time: 03:01 Consultations Consultation #1: Case was discussed with pain from the surgical services for cholecystitis Time: 03:01 Administered Medications Discontinued Medications Ioversol (Optiray 350 100ml) 100 ml IV ONCE ONE Stop: 11/24/22 02:12 Last Admin: 11/24/22 02:12 Dose: 87 ml Documented By: JULIAN Medical Decision Making Medical Records Attestation: I reviewed the patient's medical records. Home Medications Current Medication List: was personally reviewed by me Laboratory Data Attestation: I reviewed the patient's lab results. 11/23/22 22:27 11/23/22 22:27 Lab Results 11/23/22 11/23/22 11/23/22 Range/Units 22:27 22:27 22:27 WBC 10.68 (4.8-10.8) K/ul RBC 4.29 L (4.70-6.10) M/uL Hgb 13.4 L (14.0-18.0) g/dl Hct 39.7 L (42.0-52.0) % MCV 92.5 (80.0-100.0) fL MCH 31.2 (25.0-34.0) pg MCHC 33.8 (32.0-36.0) g/dL RDW Std Deviation 43.0 (36.4-46.3) fL RDW Coeff of Ronnie 12.6 (11.5-14.5) % Plt Count 201 (130-400) K/uL MPV 9.1 L (9.4-12.4) fL Immature Gran % (Auto) 0.6 % Neut % (Auto) 80.2 % Lymph % (Auto) 8.3 % [place] % (Auto) 10.5 % Eos % (Auto) 0.1 % Baso % (Auto) 0.3 % Neut # (Auto) 8.57 H (1.40-6.50) K/uL Lymph # (Auto) 0.89 L (1.2-3.4) K/uL [place] # (Auto) 1.12 H (0.11-0.59) K/uL Eos # (Auto) 0.01 (0-0.50) K/uL Baso # (Auto) 0.03 (0-0.2) K/uL Immature Gran # (Auto) 0.06 (0.01-0.20) K/uL PT 11.2 (9.0-12.0) Seconds INR 1.1 (0.9-1.1) APTT 30.8 (21.0-31.0) Seconds PTT Ratio 1.1 Sodium 135 L (136-145) mmol/L Potassium 4.5 (3.5-5.1) mmol/L Chloride 100 (98-107) mmol/L Carbon Dioxide 28 (21-32) mmol/L Anion Gap 7 (3-11) BUN 17 (6-23) mg/dl Creatinine 1.51 H (0.6-1.4) mg/dl Est Cr Clr Drug Dosing 49.8 ml/min Est GFR ( Amer) 49.5 ml/min Est GFR (Non-Af Amer) 42.7 ml/min BUN/Creatinine Ratio 11.3 (10-20) Glucose 149 H (70-99(Fasting)) mg/dl Calcium 9.3 (8.6-10.3) mg/dl Total Bilirubin 1.5 H (0.2-1.0) mg/dl AST 16 (13-39) U/L ALT 18 (7-52) U/L Alkaline Phosphatase 67 (34-104) U/L Troponin I High Sens 28.4 H (0-20) pg/ml Total Protein 7.4 (6.0-8.3) gm/dl Albumin 4.4 (3.4-5.0) gm/dl Globulin 3.0 (2.5-4.0) gm/dl Albumin/Globulin Ratio 1.5 (0.9-2) Lipase 31 (11-82) U/L 11/24/22 Range/Units 01:08 WBC (4.8-10.8) K/ul RBC (4.70-6.10) M/uL Hgb (14.0-18.0) g/dl Hct (42.0-52.0) % MCV (80.0-100.0) fL MCH (25.0-34.0) pg MCHC (32.0-36.0) g/dL RDW Std Deviation (36.4-46.3) fL RDW Coeff of Ronnie (11.5-14.5) % Plt Count (130-400) K/uL MPV (9.4-12.4) fL Immature Gran % (Auto) % Neut % (Auto) % Lymph % (Auto) % [place] % (Auto) % Eos % (Auto) % Baso % (Auto) % Neut # (Auto) (1.40-6.50) K/uL Lymph # (Auto) (1.2-3.4) K/uL [place] # (Auto) (0.11-0.59) K/uL Eos # (Auto) (0-0.50) K/uL Baso # (Auto) (0-0.2) K/uL Immature Gran # (Auto) (0.01-0.20) K/uL PT (9.0-12.0) Seconds INR (0.9-1.1) APTT (21.0-31.0) Seconds PTT Ratio Sodium (136-145) mmol/L Potassium (3.5-5.1) mmol/L Chloride (98-107) mmol/L Carbon Dioxide (21-32) mmol/L Anion Gap (3-11) BUN (6-23) mg/dl Creatinine (0.6-1.4) mg/dl Est Cr Clr Drug Dosing ml/min Est GFR ( Amer) ml/min Est GFR (Non-Af Amer) ml/min BUN/Creatinine Ratio (10-20) Glucose (70-99(Fasting)) mg/dl Calcium (8.6-10.3) mg/dl Total Bilirubin (0.2-1.0) mg/dl AST (13-39) U/L ALT (7-52) U/L Alkaline Phosphatase (34-104) U/L Troponin I High Sens 27.9 H (0-20) pg/ml Total Protein (6.0-8.3) gm/dl Albumin (3.4-5.0) gm/dl Globulin (2.5-4.0) gm/dl Albumin/Globulin Ratio (0.9-2) Lipase (11-82) U/L Imaging Data Attestation: I personally reviewed and interpreted this imaging study as follows: My Impression: Chest x-ray interpreted by me pacemaker is present no obvious infiltrate Radiologist's Impression: Abdomen/Pelvis CT 11/24/22 01:19 Exam(s): CT ABDOMEN + PELVIS With Contrast IV Amt: 87 ML OPTIRAY 350 EXAM: CT Abdomen and Pelvis With Intravenous Contrast CLINICAL HISTORY: Reason for exam: ruq abd pain. TECHNIQUE: Axial computed tomography images of the abdomen and pelvis with intravenous contrast. CTDI is 23.97 mGy and DLP is 1308.81 mGy-cm. Automated exposure control was utilized for the study. A dose lowering technique was utilized adhering to the principles of ALARA. CONTRAST: Patient received 87 ML OPTIRAY 350 of IV contrast COMPARISON: No relevant prior studies available. FINDINGS: There are partially imaged cardiac pacer leads. Heart size is normal. Patient has undergone previous sternotomy. Lung bases are clear. There is gallbladder distention with layering radiodense stones. There is gallbladder wall thickening, pericholecystic fat stranding, and trace fluid. No biliary dilatation is evident. Liver, spleen, pancreas, and adrenal glands are unremarkable. There are numerous small simple cysts in the kidneys bilaterally for which no further follow-up is required. Largest is located in the right kidney and measures 3 cm. There is atherosclerosis without aortic aneurysm. There is mild calcific stenosis at the SMA origin. There is no adenopathy. There is no free air. Appendix is not identified. There are no pericecal inflammatory changes. There is no bowel obstruction or inflammation. Prostate is enlarged. Urinary bladder is normal. There are small bilateral fat-containing inguinal hernias. Posterior decompression of the spine has been performed from L3-L5. Posterior hardware fixation extends from L2-S1, with interbody fusion at the L4-L5 and L5-S1 levels. There is mild dextroconvex lumbar curvature with multilevel disc and facet degeneration. Bones are demineralized. There are no acute osseous findings. IMPRESSION: Findings compatible with acute cholecystitis. Clinical/sonographic correlation recommended. Electronically signed by: Maeve Roy M.D. 11/24/22 02:37 AM ECG Data Attestation: I personally reviewed and interpreted this ECG as follows: Additional Comments: EKG interpreted by me normal sinus rhythm rate of 93 nonspecific T abnormality no obvious ST segment elevation or depression Telemetry ordered by me, interpreted as normal sinus rhythm rate of 90 MDM Narrative Medical decision making differential diagnosis includes angina, unstable angina, acute coronary syndrome, gastritis, gastroenteritis, pancreatitis, cholelithiasis, cholecystitis Plan is to check EKG, labs, chest x-ray, CT abdomen pelvis External medical records were reviewed by me Impression & Plan Acute cholecystitis Discharge Plan Visit Data Chief Complaint: Chest Pain Stated Complaint: CHEST PAIN,HEADACHE,CHILLS,BACK PAIN ED Provider: Hu Clark Discharge Problem: Acute cholecystitis Patient Disposition: Admitted As Inpatient Forms Stand Alone Forms: My [facility] Prescriptions Prescriptions: No Action losartan [Cozaar] 100 mg tablet 100 mg PO QAM Qty: 90 3RF atorvastatin 40 mg tablet 40 mg PO HS Qty: 90 0RF famotidine [Pepcid] 20 mg tablet 20 mg PO BID Qty: 180 3RF terazosin 2 mg capsule 4 mg PO DAILY Qty: 180 3RF Rx Instructions: Take both pills together in the evening for urinary frequency. albuterol sulfate 90 mcg/actuation HFA aerosol inhaler 2 puff inhalation Q4H PRN (Reason: shortness of breath or wheezing) Qty: 8.5 5RF biotin 1 mg tablet 1 mg PO QAM coenzyme Q10 200 mg capsule 200 mg PO QAM metoprolol tartrate 25 mg tablet 12.5 mg PO HS multivitamin [Daily Multi-Vitamin] tablet 0.5 tab PO BID nitroglycerin 0.4 mg tablet, sublingual 0.4 mg SL UD PRN (Reason: Angina) triamcinolone acetonide 0.1 % ointment 1 applic topical UD PRN (Reason: Rash) Qty: 1 zinc 50 mg tablet 50 mg PO QAM potassium chloride 10 mEq capsule, extended release 10 meq PO TID ascorbic acid (vitamin C) [Vitamin C] 1,000 mg Tablet 1 g PO QAM Metamucil 3.4 gram/5.4 gram Powder 2 tsp PO QAM acetaminophen [Tylenol Extra Strength] 500 mg Tablet 500 mg PO Q6H PRN (Reason: Pain) amlodipine 5 mg tablet 5 mg PO QAM aspirin [Chanelle Low Dose Aspirin] 81 mg tablet,delayed release (DR/EC) 81 mg PO HS spironolactone [Aldactone] 25 mg tablet 25 mg PO QAM furosemide [Lasix] 20 mg tablet 20 mg PO QAM Eliquis 2.5 mg tablet 2.5 mg PO BID Referrals Referrals: Yared England MD [Primary Care Provider] -
[2022-11-24] MEDS ORDERED: OPTIRAY 350 100ml IV ONE (02:11)
--- NOTE | 2022-11-24 02:38 | CT Scan Report ---
Exam(s): CT ABDOMEN + PELVIS With Contrast IV Amt: 87 ML OPTIRAY 350 EXAM: CT Abdomen and Pelvis With Intravenous Contrast CLINICAL HISTORY: Reason for exam: ruq abd pain. TECHNIQUE: Axial computed tomography images of the abdomen and pelvis with intravenous contrast. CTDI is 23.97 mGy and DLP is 1308.81 mGy-cm. Automated exposure control was utilized for the study. A dose lowering technique was utilized adhering to the principles of ALARA. CONTRAST: Patient received 87 ML OPTIRAY 350 of IV contrast COMPARISON: No relevant prior studies available. FINDINGS: There are partially imaged cardiac pacer leads. Heart size is normal. Patient has undergone previous sternotomy. Lung bases are clear. There is gallbladder distention with layering radiodense stones. There is gallbladder wall thickening, pericholecystic fat stranding, and trace fluid. No biliary dilatation is evident. Liver, spleen, pancreas, and adrenal glands are unremarkable. There are numerous small simple cysts in the kidneys bilaterally for which no further follow-up is required. Largest is located in the right kidney and measures 3 cm. There is atherosclerosis without aortic aneurysm. There is mild calcific stenosis at the SMA origin. There is no adenopathy. There is no free air. Appendix is not identified. There are no pericecal inflammatory changes. There is no bowel obstruction or inflammation. Prostate is enlarged. Urinary bladder is normal. There are small bilateral fat-containing inguinal hernias. Posterior decompression of the spine has been performed from L3-L5. Posterior hardware fixation extends from L2-S1, with interbody fusion at the L4-L5 and L5-S1 levels. There is mild dextroconvex lumbar curvature with multilevel disc and facet degeneration. Bones are demineralized. There are no acute osseous findings. IMPRESSION: Findings compatible with acute cholecystitis. Clinical/sonographic correlation recommended. Electronically signed by: Maeve Roy M.D. 11/24/22 02:37 AM
[2022-11-24] MEDS ORDERED: PIPERACILLIN/TAZOBACTAM 4.5 GM/120 ML BAG IV ONE (02:50)
--- NOTE | 2022-11-24 03:05 | Surgery Consultation ---
Date of Consultation November 24, 2022 Assessment & Plan (1) Acute cholecystitis: Due to the patient's findings on imaging and clinical presentation I discussed with the treating emergency room physician and he will be admitted to the hospital service. We recommend proceeding as follows: Provide analgesics Provide antiemetics Provide IV fluid for hydration Follow serial labs We will get an ultrasound of the gallbladder to further delineate his biliary anatomy Would recommend initiating antibiotics (the treating emergency room physician has already ordered Zosyn I recommend continuing this medication) Patient does have a significant cardiac history and he did have a slight elevation of his troponin. Would like to ensure that the patient is medically optimized prior to entertaining any surgical intervention. The patient does take Eliquis with his most recent dose being the morning of . Would be preferable for the patient to be off his Eliquis for several days prior to undergoing any surgery. I did discuss the possibility of patient having a cholecystectomy this admission with the patient but again I have discussed with he and his that we would like to make sure his cardiovascular status is optimized and also would like him to be off his Eliquis for several days to reduce the risk of perioperative bleeding. At the present time the patient is noted to be afebrile and hemodynamically stable without hypotension or tachycardia. Additional recommendations will be forthcoming based on his clinical course as it unfolds Supervising Physician Co-Signing Physician Notes I saw the patient this am and examined him. Recommend cardiology evaluation for potential laparoscopic cholecystectomy after 48 hours of holding Eliquis. Last dose was yesterday am. The patient says he feels improved since he has started antibiotics but is still moderately TTP. NPO after midnight tonight. History of Present Illness Reason for Consultation: Acute cholecystitis History of Present Illness This is an 82-year-old male who presented to the emergency department secondary to 2 days of right upper quadrant abdominal pain. The patient notes that it started after eating a meal. Again the pain was noted to be in the right upper quadrant but it did radiate up into his right chest. He did deny any substernal chest pain. He denied any nausea, vomiting, or diarrhea. He denies any fevers, shakes, or chills. Patient notes that there were no additional palliative or provocative factors. He does report having one abdominal surgery as he had an appendectomy as a child in the 1950s. Patient also added that he has a known history of gallstones. The patient does note he has a significant cardiac history having coronary bypass grafting he believes in 2007. He follows locally with Dr. Alex aMyes of [facility] cardiology. He notes that has been "a few years" since his most recent stress test. Review of records did show that patient had a stress test which was a nuclear stress test at [facility] in 2019. This study was negative for infarct or ischemia and he was found to have an ejection fraction of 68% on the study. The patient notes with his day-to-day activities he does not get any chest pain but does note he gets short winded at times. In addition the patient notes that he has a permanent pacemaker in place. Patient does take Eliquis and he took his most recent dose in the morning of 11/23/2022. Since arrival to the emergency department patient has had labs and imaging which I independent reviewed. Chest x-ray did not show any discrete infiltrates but there did appear to be some atelectasis at the right base. A CT scan of the abdomen and pelvis was performed. This showed that patient had findings compatible with acute cholecystitis. The gallbladder was noted to be distended with radiodense stones noted. There is also associated gallbladder wall thickening, pericholecystic fat stranding and trace pericholecystic fluid. There was however, no biliary ductal dilatation noted. Labs include a CBC her white blood cell count was normal. Hemoglobin and hematocrit were 13.4 and 39.7. Platelet count was normal. Coagulation studies were noted to be normal. Chemistry profile showed sodium was 135 with a potassium of 4.5. BUN was 17 and creatinine was slightly elevated at 1.5. This level of creatinine was near the patient's baseline. The patient did have an elevated total bilirubin of 1.5. His transaminases and alkaline phosphatase along with his lipase were nonelevated. He did have a troponin checked which had a slight elevation at 27.9. An EKG was performed that showed nonspecific T wave abnormalities. There did however not appear to be any changes indicative of acute ischemia. A urinalysis and COVID test were both pending. At the time of my interview he was resting comfortably in bed and he was in no distress. Allergies Allergy/AdvReac Type Severity Reaction Status Date / Time antivenin,crotalidae Allergy Intermediate Hives Verified 11/24/22 02:49 polyvalent imm Home Medications Medication Instructions Recorded Confirmed Type biotin 1 mg tablet 1 mg PO QAM 06/15/19 11/24/22 History coenzyme Q10 200 mg capsule 200 mg PO QAM 06/15/19 11/24/22 History multivitamin (Daily Multi-Vitamin 0.5 tab PO BID 06/15/19 11/24/22 History tablet) nitroglycerin 0.4 mg sublingual 0.4 mg sublingual UD PRN Angina 06/15/19 11/24/22 History tablet triamcinolone acetonide 0.1 % 1 applic topical UD PRN Rash #1 g 06/15/19 11/24/22 History topical ointment zinc 50 mg tablet 50 mg PO QAM 06/15/19 11/24/22 History ascorbic acid (vitamin C) 1,000 mg 1 g PO QAM 11/30/19 11/24/22 History tablet (Vitamin C) psyllium husk 3.4 gram/5.4 gram 2 tsp PO QAM 11/30/19 11/24/22 History oral powder (Metamucil) acetaminophen 500 mg tablet 500 mg PO Q6H PRN Pain 02/05/20 11/24/22 History (Tylenol Extra Strength) amlodipine 5 mg tablet 5 mg PO QAM 02/05/20 11/24/22 History furosemide 20 mg tablet (Lasix) 20 mg PO QAM 01/07/21 11/24/22 History spironolactone 25 mg tablet 25 mg PO QAM 01/07/21 11/24/22 History (Aldactone) aspirin 81 mg tablet,delayed 81 mg PO HS 05/14/21 11/24/22 History release (Chanelle Low Dose Aspirin) potassium chloride 10 mEq 10 meq PO TID 05/14/21 11/24/22 History capsule,extended release losartan 100 mg tablet (Cozaar) 100 mg PO QAM #90 tabs 04/17/22 11/24/22 Rx albuterol sulfate 90 mcg/actuation 2 puff inhalation Q4H PRN 09/24/22 11/24/22 Rx aerosol inhaler shortness of breath or wheezing #8.5 grams atorvastatin 40 mg tablet 40 mg PO HS #90 tabs 10/05/22 11/24/22 Rx famotidine 20 mg tablet (Pepcid) 20 mg PO BID #180 tabs 10/05/22 11/24/22 Rx terazosin 2 mg capsule 4 mg PO DAILY #180 caps 10/08/22 11/24/22 Rx apixaban 2.5 mg tablet (Eliquis) 2.5 mg PO BID 11/24/22 11/24/22 History metoprolol succinate 25 mg 37.5 mg PO HS 11/24/22 11/24/22 History tablet,extended release 24 hr Patient History Medical History 2019 novel coronavirus not detected Back pain with history of spinal surgery Dr Smith -2019 CAD (coronary artery disease) s/p CABG x4 (2007) Chronic back pain Chronic low back pain Close exposure to 2018 novel coronavirus Close exposure to 2019-nCoV Cough GERD (gastroesophageal reflux disease) controlled Hearing loss in left ear Hx of cardiac pacemaker 2020 Hyperlipidemia Hypertension Medicare annual wellness visit, subsequent Nasal congestion Osteoarthritis Prediabetes Retained metal fragment right knee d/t accident Right knee DJD Sleep apnea CPAP SNHL (sensorineural hearing loss) Spinal stenosis Transient ischemic attack (TIA) TIA vs CVA (2007)/a few days after CABG/no neurologist, no deficits Ulnar nerve palsy Surgical History History of appendectomy History of arthroscopy of right knee x2 meniscus repair History of basal cell carcinoma (BCC) excision right arm History of bilateral carpal tunnel release History of bilateral cataract extraction History of cardiac cath 2007 @ [facility] [place], no stents History of colonoscopy History of surgery left ring finger fx repair--hardware removed History of tonsillectomy History of total right knee replacement (TKR) History of wisdom tooth extraction Hx of vasectomy S/P CABG x 4 [facility] @ 2007--follows with Dr. Mayes S/P placement of cardiac pacemaker Status post anal fissurectomy Status post Mohs surgery on left cheek Family History Mother Angina pectoris Family history of diabetes mellitus Father Myocardial infarction Grandmother Cancer Grandfather Cardiac disorder Cancer Grandmother (Maternal) Family history of diabetes mellitus Social History Smoking Status: Never smoker Tobacco Type: Cigarettes Second Hand Exposure: Yes (AT WORK YRS AGO); Hx Alcohol Use: No Hx Substance Use: No Preferred Language: Bulgarian Communication Ability: Effective Meter Attendant Required: No Beliefs That Will Affect Care: None marital status: Current Living Situation: Spouse current occupational status: retired Other Information That Helps Us Care for You: No Feels Safe at Home: Yes Seatbelt Use: always Assistive Devices: CPAP and Walker Review of Systems Constitutional: no fever and no chills Eyes: no eye pain Ear, Nose, Mouth, Throat: no ear pain Respiratory: no cough and no dyspnea Cardiovascular: + chest pain (Radiating from abdomen) Gastrointestinal: as per Subjective / HPI Genitourinary: no dysuria Musculoskeletal: no back pain Integumentary: no rash Neurologic: no localized weakness Physical Exam Constitutional: WD/WN, vitals as above Eyes: + anicteric sclerae ENMT: Ears: no hearing impairment Mouth: no oropharynx abnormality Neck: trachea midline Respiratory: normal respiratory effort; no respiratory distress and no labored breathing Cardiovascular: Rate/Rhythm: regular rate and regular rhythm Gastrointestinal (Abdomen): Abdomen is rotund with minimal distention. There is no rebound tenderness or guarding but patient had significant tenderness in the right upper quadrant with a positive Arlelano sign. Musculoskeletal: No calf tenderness Skin: no rashes Neurologic: moves all extremities Psychiatric: A+Ox3, euthymic affect Results & Data Vital Signs (Past 12 Hours) Vital Signs Temp Pulse Pulse Resp BP BP Pulse Ox 11/24/22 02:30 78 22 136/66 92 11/24/22 01:17 93 H 22 170/78 H 93 11/23/22 22:09 37.2 C 94 H 20 158/88 H 94 O2 Del Method 11/24/22 02:30 Room Air 11/24/22 01:17 Room Air 11/23/22 22:09 PG Care Time/CCT Total # of Minutes Spent Total Time Spent with Patient: Total time spent is greater than 50% in coordination of care (as documented) at patient's floor/unit and/or counseling patient: Coding Level of Care Code 03851 INT INP/OBS CARE 3/75MIN Diagnoses Acute cholecystitis K81.0
[2022-11-24 03:08] LABS: Appearance Urine Clear (Clear); Bilirubin Urine Negative (Negative); Blood Urine Negative (Negative); Color Urine Yellow; Glucose Urine UA Negative (Negative); Ketones Urine Negative (Negative); Leukocyte Esterase Urine Negative (Negative); Nitrite Urine Negative (Negative); Protein Urine Negative (Negative); Specific Gravity Urine 1.042 (1.000-1.030); Urobilinogen Urine Negative (Negative); pH Urine 5.5 (4.5-7.5)
--- NOTE | 2022-11-24 04:34 | History & Physical Report ---
Date of Service November 24, 2022 Assessment & Plan (1) Acute cholecystitis: Plan: 82 yo male with PMHx of HTN, CAD s/p CABG, GERD, diastolic CHF, sinus sick syndrome s/p permanent pacemaker, h/o afib and flutter on eliquis, HLD, PEGGY on cpap, and BPH presents for 1 day RUQ pain with radiation into chest. #acute cholecystitis #abdominal pain -1 day RUQ pain with radiation into chest. Exacerbated with eating. -CT A/P: gallbladder distention with layering radiodense stones, gallbladder wall thickening, pericholecystic fat stranding, and trace fluid. No biliary dilatation. -will keep NPO for now -IV Tylenol for pain -IV zofran for nausea -Received 1 dose zosyn in ED; cont. zosyn -maintenance IVF -gen surg following -discussed cholecystectomy with patient -pt on eliquis (last dose morning of 11/23). Preferable for the patient to be off his Eliquis for several days prior to undergoing any surgery. Eliquis on hold. EKG in NSR. Will monitor on tele. -US gallbladder pending #chest pain #h/o CAD s/p CABG #HFpEF #HTN -chest pain likely radiating from RUQ. Low concern for ACS. Troponin peaked, 28. EKG without ischemic changes. -cont. ASA, statin, lasix, metoprolol, losartan, amlodipine, spironolactone #sinus sick syndrome s/p permanent pacemaker #h/o afib and flutter -EKG in NSR. Monitor on tele. -chronically on eliquis which we will hold for now given likely cholecystectomy #GERD -cont. famotidine #HLD -cont. statin #BPH -cont. terazosin DVT ppx: SCDs FEN/GI: NPO, NSS @ 125mls/hr Code Status: Full Dispo: med tele (2) CAD (coronary artery disease): (3) Dyslipidemia: (4) GERD (gastroesophageal reflux disease): (5) HTN (hypertension): (6) PEGGY (obstructive sleep apnea): (7) Atrial flutter: History of Present Illness Chief Complaint: abdominal/chest pain Primary Care Provider: Yared England MD 82 yo male with PMHx of HTN, CAD s/p CABG, GERD, diastolic CHF, sinus sick syndr ome s/p permanent pacemaker, h/o afib and flutter on eliquis, HLD, PEGGY on cpap, and BPH presents for 1 day RUQ pain with radiation into chest. Non exertional. Pain began after dinner last night. He has not eaten much today but does state abdominal pain increases after eating. Associated sob on deep inspiration. Denies fever, fatigue, N/V/D. Pt with known history of gallstones. Also with extensive cardiac history. He did try taking nitro at home to alleviate chest pain but it did not help. Allergies Allergy/AdvReac Type Severity Reaction Status Date / Time antivenin,crotalidae Allergy Intermediate Hives Verified 11/24/22 02:49 polyvalent imm Home Medications Medication Instructions Recorded Confirmed Type biotin 1 mg tablet 1 mg PO QAM 06/15/19 11/24/22 History coenzyme Q10 200 mg capsule 200 mg PO QAM 06/15/19 11/24/22 History multivitamin (Daily Multi-Vitamin 0.5 tab PO BID 06/15/19 11/24/22 History tablet) nitroglycerin 0.4 mg sublingual 0.4 mg sublingual UD PRN Angina 06/15/19 11/24/22 History tablet triamcinolone acetonide 0.1 % 1 applic topical UD PRN Rash #1 g 06/15/19 11/24/22 History topical ointment zinc 50 mg tablet 50 mg PO QAM 06/15/19 11/24/22 History ascorbic acid (vitamin C) 1,000 mg 1 g PO QAM 11/30/19 11/24/22 History tablet (Vitamin C) psyllium husk 3.4 gram/5.4 gram 2 tsp PO QAM 11/30/19 11/24/22 History oral powder (Metamucil) acetaminophen 500 mg tablet 500 mg PO Q6H PRN Pain 02/05/20 11/24/22 History (Tylenol Extra Strength) amlodipine 5 mg tablet 5 mg PO QAM 02/05/20 11/24/22 History furosemide 20 mg tablet (Lasix) 20 mg PO QAM 01/07/21 11/24/22 History spironolactone 25 mg tablet 25 mg PO QAM 01/07/21 11/24/22 History (Aldactone) aspirin 81 mg tablet,delayed 81 mg PO HS 05/14/21 11/24/22 History release (Chanelle Low Dose Aspirin) potassium chloride 10 mEq 10 meq PO TID 05/14/21 11/24/22 History capsule,extended release losartan 100 mg tablet (Cozaar) 100 mg PO QAM #90 tabs 04/17/22 11/24/22 Rx albuterol sulfate 90 mcg/actuation 2 puff inhalation Q4H PRN 09/24/22 11/24/22 Rx aerosol inhaler shortness of breath or wheezing #8.5 grams atorvastatin 40 mg tablet 40 mg PO HS #90 tabs 10/05/22 11/24/22 Rx famotidine 20 mg tablet (Pepcid) 20 mg PO BID #180 tabs 10/05/22 11/24/22 Rx terazosin 2 mg capsule 4 mg PO DAILY #180 caps 10/08/22 11/24/22 Rx apixaban 2.5 mg tablet (Eliquis) 2.5 mg PO BID 11/24/22 11/24/22 History metoprolol succinate 25 mg 37.5 mg PO HS 11/24/22 11/24/22 History tablet,extended release 24 hr Past Med/Surg History Medical History 2019 novel coronavirus not detected Back pain with history of spinal surgery Dr Smith CAD (coronary artery disease) s/p CABG x4 (2007) Chronic back pain Chronic low back pain Close exposure to 2019 novel coronavirus Close exposure to 2019-nCoV Cough GERD (gastroesophageal reflux disease) controlled Hearing loss in left ear Hx of cardiac pacemaker 2020 Hyperlipidemia Hypertension Medicare annual wellness visit, subsequent Nasal congestion Osteoarthritis Prediabetes Retained metal fragment right knee d/t accident Right knee DJD Sleep apnea CPAP SNHL (sensorineural hearing loss) Spinal stenosis Transient ischemic attack (TIA) TIA vs CVA (2007)/a few days after CABG/no neurologist, no deficits Ulnar nerve palsy Surgical History History of appendectomy History of arthroscopy of right knee x2 meniscus repair History of basal cell carcinoma (BCC) excision right arm History of bilateral carpal tunnel release History of bilateral cataract extraction History of cardiac cath 2008 @ [facility] [place], no stents History of colonoscopy History of surgery left ring finger fx repair--hardware removed History of tonsillectomy History of total right knee replacement (TKR) History of wisdom tooth extraction Hx of vasectomy S/P CABG x 4 [facility] [place] @ 2007--follows with Dr. Mayes S/P placement of cardiac pacemaker Status post anal fissurectomy Status post Mohs surgery on left cheek Family History Mother Angina pectoris Family history of diabetes mellitus Father Myocardial infarction Grandmother Cancer Grandfather Cardiac disorder Cancer Grandmother (Maternal) Family history of diabetes mellitus Social History Smoking Status: Never smoker Tobacco Type: Cigarettes Second Hand Exposure: Yes (AT WORK YRS AGO); Hx Alcohol Use: No Hx Substance Use: No Preferred Language: Belarusian Communication Ability: Effective Manager Financial Planning Required: No Beliefs That Will Affect Care: None marital status: Current Living Situation: Spouse current occupational status: retired Other Information That Helps Us Care for You: No Feels Safe at Home: Yes Seatbelt Use: always Assistive Devices: CPAP and Walker Review of Systems Review of Systems: All systems reviewed & are unremarkable except as noted in HPI & below Physical Exam Physical Exam: Constitutional: in no acute distress, pleasant. AOx3. Vitals as above. HEENT: No scleral injection or discharge. Moist mucous membranes. Neck: Supple without lymphadenopathy or thyromegaly. Trachea midline. Lungs: Clear to auscultation bilaterally with good effort. Cardiac: Regular rate and rhythm. No murmurs. Trace lower extremity edema. 2+ peripheral distal pulses. Abdomen: Bowel sounds present. Distended. Soft. RUQ tenderness. No guarding. +stoner's MSK: No cyanosis or clubbing. Extremities motor strength 5/5. Skin: venous stasis changes bilateral lower extremities Neurologic: no focal deficits Results & Data Results & Data Vital Signs (Past 12 Hours) Vital Signs Temp Pulse Pulse Resp BP BP Pulse Ox 11/24/22 02:26 76 11/24/22 04:00 76 20 154/75 H 93 11/24/22 03:30 74 23 135/73 93 11/24/22 03:00 81 24 147/69 H 93 11/24/22 02:30 78 22 136/66 92 11/24/22 01:17 93 H 22 170/78 H 93 11/23/22 22:09 37.2 C 94 H 20 158/88 H 94 O2 Del Method 11/24/22 02:26 11/24/22 04:00 Room Air 11/24/22 03:30 11/24/22 03:00 11/24/22 02:30 Room Air 11/24/22 01:17 Room Air 11/23/22 22:09 Laboratory Results Laboratory Results WBC 10.68 K/ul (4.8-10.8) 11/23/22 22: RBC 4.29 M/uL (4.70-6.10) L 11/23/22 22: Hgb 13.4 g/dl (14.0-18.0) L 11/23/22 22: Hct 39.7 % (42.0-52.0) L 11/23/22 22: MCV 92.5 fL (80.0-100.0) 11/23/22 22: MCH 31.2 pg (25.0-34.0) 11/23/22: MCHC 33.8 g/dL (32.0-36.0) 11/23/22: RDW Std Deviation 43.0 fL (36.4-46.3) 11/23/22: RDW Coeff of Ronnie 12.6 % (11.5-14.5) 11/23/22: Plt Count 201 K/uL (130-400) 11/23/22: MPV 9.1 fL (9.4-12.4) L 11/23/22: Immature Gran % (Auto) 0.6 % 11/23/22: Neut % (Auto) 80.2 % 11/23/22: Lymph % (Auto) 8.3 % 11/23/22: [place] % (Auto) 10.5 % 11/23/22 22: Eos % (Auto) 0.1 % 11/23/22: Baso % (Auto) 0.3 % 11/23/22: Neut # (Auto) 8.57 K/uL (1.40-6.50) H 11/23/22 22: Lymph # (Auto) 0.89 K/uL (1.2-3.4) L 11/23/22 22: [place] # (Auto) 1.12 K/uL (0.11-0.59) H 11/23/22 22: Eos # (Auto) 0.01 K/uL (0-0.50) 11/23/22 22: Baso # (Auto) 0.03 K/uL (0-0.2) 11/23/22: Immature Gran # (Auto) 0.06 K/uL (0.01-0.20) 11/23/22: PT 11.2 Seconds (9.0-12.0) 11/23/22: INR 1.1 (0.9-1.1) 11/23/22: APTT 30.8 Seconds (21.0-31.0) 11/23/22: PTT Ratio 1.1 11/23/22 22: Sodium 135 mmol/L (136-145) L 11/23/22: Potassium 4.5 mmol/L (3.5-5.1) 11/23/22: Chloride 100 mmol/L (98-107) 11/23/22: Carbon Dioxide 28 mmol/L (21-32) 11/23/22: Anion Gap 7 (3-11) 11/23/22: BUN 17 mg/dl (6-23) 11/23/22: Creatinine 1.51 mg/dl (0.6-1.4) H 11/23/22: Est Cr Clr Drug Dosing 49.8 ml/min 11/23/22: Est GFR ( Amer) 49.5 ml/min 11/23/22: Est GFR (Non-Af Amer) 42.7 ml/min 11/23/22: BUN/Creatinine Ratio 11.3 (10-20) 11/23/22: Glucose 149 mg/dl (70-99(Fasting)) H 11/23/22: Calcium 9.3 mg/dl (8.6-10.3) 11/23/22: Total Bilirubin 1.5 mg/dl (0.2-1.0) H 11/23/22 22:27 AST 16 U/L (13-39) 11/23/22 22:27 ALT 18 U/L (7-52) 11/23/22 22:27 Alkaline Phosphatase 67 U/L (34-104) 11/23/22 22: Troponin I High Sens 27.9 pg/ml (0-20) H 11/24/22 01:08 Total Protein 7.4 gm/dl (6.0-8.3) 11/23/22 22: Albumin 4.4 gm/dl (3.4-5.0) 11/23/22 22: Globulin 3.0 gm/dl (2.5-4.0) 11/23/22 22: Albumin/Globulin Ratio 1.5 (0.9-2) 11/23/22 22: Lipase 31 U/L (11-82) 11/23/22 22:27 Urine Color Yellow 11/24/22 02:54 Urine Appearance Clear (Clear) 11/24/22 02:54 Urine pH 5.5 (4.5-7.5) 11/24/22 02:54 Ur Specific Bryan 1.042 (1.000-1.030) H 11/24/22 02:54 Urine Protein Negative (Negative) 11/24/22 02:54 Urine Glucose (UA) Negative (Negative) 11/24/22 02:54 Urine Ketones Negative (Negative) 11/24/22 02:54 Urine Blood Negative (Negative) 11/24/22 02:54 Urine Nitrite Negative (Negative) 11/24/22 02:54 Urine Bilirubin Negative (Negative) 11/24/22 02:54 Urine Urobilinogen Negative (Negative) 11/24/22 02:54 Ur Leukocyte Esterase Negative (Negative) 11/24/22 02:54 SARS-CoV-2, RNA, NAAT NEGATIVE (NEGATIVE) 11/24/22 03:15 Impressions Abdomen/Pelvis CT 11/24/22 01:19 Exam(s): CT ABDOMEN + PELVIS With Contrast IV Amt: 87 ML OPTIRAY 350 EXAM: CT Abdomen and Pelvis With Intravenous Contrast CLINICAL HISTORY: Reason for exam: ruq abd pain. TECHNIQUE: Axial computed tomography images of the abdomen and pelvis with intravenous contrast. CTDI is 23.97 mGy and DLP is 1308.81 mGy-cm. Automated exposure control was utilized for the study. A dose lowering technique was utilized adhering to the principles of ALARA. CONTRAST: Patient received 87 ML OPTIRAY 350 of IV contrast COMPARISON: No relevant prior studies available. FINDINGS: There are partially imaged cardiac pacer leads. Heart size is normal. Patient has undergone previous sternotomy. Lung bases are clear. There is gallbladder distention with layering radiodense stones. There is gallbladder wall thickening, pericholecystic fat stranding, and trace fluid. No biliary dilatation is evident. Liver, spleen, pancreas, and adrenal glands are unremarkable. There are numerous small simple cysts in the kidneys bilaterally for which no further follow-up is required. Largest is located in the right kidney and measures 3 cm. There is atherosclerosis without aortic aneurysm. There is mild calcific stenosis at the SMA origin. There is no adenopathy. There is no free air. Appendix is not identified. There are no pericecal inflammatory changes. There is no bowel obstruction or inflammation. Prostate is enlarged. Urinary bladder is normal. There are small bilateral fat-containing inguinal hernias. Posterior decompression of the spine has been performed from L3-L5. Posterior hardware fixation extends from L2-S1, with interbody fusion at the L4-L5 and L5-S1 levels. There is mild dextroconvex lumbar curvature with multilevel disc and facet degeneration. Bones are demineralized. There are no acute osseous findings. IMPRESSION: Findings compatible with acute cholecystitis. Clinical/sonographic correlation recommended. Electronically signed by: Maeve Roy M.D. 11/24/22 02:37 AM Supervising Physician Co-Signing Physician Notes Attending addendum: I have physically seen this patient, have supervised the medical residents activities, and agree with the H&P unless as otherwise noted. Assessment and Plan: Acute cholecystitis-as noted on CT scan Consistent with patient's examination and history N.p.o. Acetaminophen 650 g IV every 6 hours as needed for mild pain or fever Zofran 4 mg IV every 6 hours as needed for nausea/vomiting Zosyn 4.5 g IV every 8 hours IV fluids Assessed by general surgery in ED and will follow CAD/hypertension/CABG/HFpEF/permanent pacemaker for sick sinus syndrome/A-fib flutter- Continue oral medications until surgery then resume afterwards: Metoprolol tartrate, losartan and amlodipine Hold apixaban, aspirin and spironolactone Hyperlipidemia- Continue atorvastatin GERD- Change famotidine to IV BPH- Continue terazosin Remaining orders and notations as noted Resident Activity Tracking Resident Involvement: Resident Care Provided Care Provided: Adult [facility] Medicine
--- NOTE | 2022-11-24 05:19 | Ultrasound Report ---
Exam(s): US GALLBLADDER EXAM: US Abdomen Limited, Right Upper Quadrant CLINICAL HISTORY: Reason for exam: cholecystitis. TECHNIQUE: Real-time ultrasound of the right upper quadrant with image documentation. COMPARISON: No relevant prior studies available. FINDINGS: Liver: The liver measures 19.0 cm in length. Increased echogenicity of the liver which can be seen with hepatic steatosis. No intrahepatic bile duct dilation. Gallbladder: Dilated gallbladder measuring 13.5 cm in length and 5.4 cm in diameter. Additional gallbladder wall thickening measuring 5 mm with pericholecystic fluid. Dependent calculi noted. Findings can be seen with cholecystitis. Consider correlation with laboratory values. If there is further concern, consider HIDA imaging. Common bile duct: The common duct measures 4 mm in diameter. No stones. No dilation. Pancreas: Unremarkable as visualized. Right kidney: Unremarkable. No stones. No hydronephrosis. The right kidney measures 14.1 cm in length. IMPRESSION: Dilated gallbladder measuring 13.5 cm in length and 5.4 cm in diameter. Additional gallbladder wall thickening measuring 5 mm with pericholecystic fluid. Dependent calculi noted. Findings can be seen with cholecystitis. Consider correlation with laboratory values. If there is further concern, consider HIDA imaging. Communications: Verify Receipt Electronically signed by: Kris Kendrick MD 11/24/22 05:18 AM
[2022-11-24] MEDS ORDERED: ONDANSETRON INJ 2 MG/ML 2 ML VIAL IV PRN (05:54)
[2022-11-24 06:11] LABS: Basophils # (auto) 0.03 K/uL (0-0.2); Basophils % (auto) 0.3 %; Eosinophils # (auto) 0.01 K/uL (0-0.50); Eosinophils % (auto) 0.1 %; Hematocrit (blood only) 38.9 % (42.0-52.0); Hemoglobin 13.2 g/dl (14.0-18.0); Immature Granulocytes # (auto) 0.23 K/uL (0.01-0.20); Immature Granulocytes % (auto) 2.3 %; Lymphocytes # (auto) 0.93 K/uL (1.2-3.4); Lymphocytes % (auto) 9.1 %; Mean Corpuscular Hemoglobin 30.8 pg (25.0-34.0); Mean Corpuscular Hgb Conc 33.9 g/dL (32.0-36.0); Mean Corpuscular Volume 90.9 fL (80.0-100.0); Monocytes # (auto) 1.32 K/uL (0.11-0.59); Neutrophils # (auto) 7.67 K/uL (1.40-6.50); Neutrophils % (auto) 75.2 %; Platelet Count 190 K/uL (130-400); RDW Coefficient of Variation 12.5 % (11.5-14.5); RDW Standard Deviation 41.6 fL (36.4-46.3); Red Blood Count 4.28 M/uL (4.70-6.10); White Blood Count 10.19 K/ul (4.8-10.8)
[2022-11-24 06:29] LABS: Albumin Globulin Ratio 1.4 (0.9-2); BUN Creatinine Ratio 11.6 (10-20); Bilirubin,Total 1.7 mg/dl (0.2-1.0); Calcium 9.2 mg/dl (8.6-10.3); Creatinine Clr Calc Pharmacy 54.5 ml/min; Est GFR (African American) 55.2 ml/min; Est GFR (Non-African American) 47.6 ml/min; Globulin 2.8 gm/dl (2.5-4.0); Potassium 4.4 mmol/L (3.5-5.1); Total Protein 6.8 gm/dl (6.0-8.3)
[2022-11-24] MEDS: SODIUM CHLORIDE 0.9% 1000ML 1,000 ML IV SCH ×2 (07:20→16:20)
[2022-11-24] MEDS: ACETAMINOPHEN 1,000 MG/100 ML VIAL IV PRN (07:21)
--- NOTE | 2022-11-24 08:02 | XRay Report ---
XR chest 1V not portable HISTORY: Atypical chest pain. COMPARISON: Chest 01/18/2020. FINDINGS: Stable 12 mm nodule within the right upper lobe. There are low lung volumes and a few bibas ilar linear densities suggestive of subsegmental atelectasis. No pneumothorax. No pleural effusions. The heart remains mildly enlarged. There is a left-sided pacemaker and poststernotomy changes again n oted. IMPRESSION: 1. Low lung volumes with a few bibasilar linear densities suggestive of subsegmental atelectasis. 2. Stable 12 mm right upper lobe nodule. ACT 112: Negative or not required by law. Electronically signed by: Celso Carlos M.D. 11/24/2022 8:01 AM
[2022-11-24] MEDS: amLODIPine BESYLATE 5 MG TAB PO SCH (08:42)
[2022-11-24] MEDS: LOSARTAN POTASSIUM 50 MG TAB PO SCH (08:43)
[2022-11-24] MEDS ORDERED: SPIRONOLACTONE 25 MG TAB PO SCH (09:00)
[2022-11-24] MEDS ORDERED: FUROSEMIDE INJ 20 MG/2 ML VIAL IV SCH (09:00)
[2022-11-24] MEDS ORDERED: POTASSIUM CHLORIDE 10 MEQ TABCR PO SCH (09:00)
[2022-11-24] MEDS: FAMOTIDINE 20 MG in SYRINGE 3 ML IV SCH ×2 (09:07→23:07)
[2022-11-24] MEDS: PIPERACILLIN/TAZOBACTAM 4.5 GM in DEXTROSE 5% 100 ML IV SCH ×2 (09:08→18:33)
[2022-11-24] MEDS ORDERED: ALBUTEROL HFA 8 GM INHALER INH PRN (12:15)
[2022-11-24 12:46] LABS: Troponin I High Sensitivity 34.1 pg/ml (0-20)
--- NOTE | 2022-11-24 13:03 | Electrocardiogram Report ---
Test Reason : Blood Pressure : / mmHG Vent. Rate : 093 BPM Atrial Rate : 093 BPM P-R Int : 166 ms QRS Dur : 094 ms QT Int : 346 ms P-R-T Axes : 036 007 107 degrees QTc Int : 430 ms Sinus rhythm with occasional Premature ventricular complexes Nonspecific T wave abnormality Abnormal ECG No previous ECGs available Confirmed by Akbar Gutierrez ([id number]) on 11/24/2022 1:02:54 PM Referred By: REFERRED SELF Confirmed By:Akbar Gutierrez
--- NOTE | 2022-11-24 20:11 | History & Physical Bridge Note ---
Date of Service November 24, 2022 History & Physical Bridge Note I have examined the patient, reviewed the History & Physical and in the interval since the performance of the History & Physical I have noted the following changes of clinical significance: Pt feeling much better when seen later in the day, still +TTP in RUQ on examination, lungs clear, CV RRR no mgr, chronic venous stasis changes on legs, no edema. Denies any CP, SOB with exertion, had normal stress test 2020 Discussed his care with Surgery and Cardiology. -plan for lap florencio tomorrow after Cardiac preop assessment. -continue Zosyn -Surgery says ok for diet this evening with low fat and then NPO after midnight for surgery tomorrow -continue IVFs but reduce to 70 mL/hr -HOLD lasix, aldactone, KCl -follow CBC, CMP, Mag -trended serial troponin today and minimally elevated consistent with demand ischemia in setting of acute cholecystitis with underlying known CAD -changed home med rec was wrong for metoprolol--> he takes Toprol XL 37.5 mg qhs (NOT tartrate 12.5mg po hs) -ok to continue ASA through lap florencio especially given known CAD and h/o CABG
[2022-11-24] MEDS ORDERED: METOPROLOL TARTRATE 25 MG TAB PO SCH (21:00)
--- NOTE | 2022-11-24 21:58 | Billing Data ---
Date of Service November 24, 2022 Coding Level of Care Code 73080 INT INP/OBS CARE
[2022-11-24] MEDS: ATORVASTATIN 40 MG TAB PO SCH (22:39)
[2022-11-24] MEDS: ASPIRIN 81 MG ECTAB PO SCH (22:39)
[2022-11-24] MEDS: METOPROLOL SUCC 25MG EXT REL TAB PO SCH (22:40)
[2022-11-24] MEDS: TERAZOSIN HCL 1 MG CAP PO SCH (22:44)
[2022-11-25] MEDS: PIPERACILLIN/TAZOBACTAM 4.5 GM in DEXTROSE 5% 100 ML IV SCH ×3 (01:58→19:40)
[2022-11-25] MEDS: SODIUM CHLORIDE 0.9% 1000ML 1,000 ML IV SCH ×2 (03:38→17:56)
[2022-11-25 07:27] LABS: Basophils # (auto) 0.04 K/uL (0-0.2); Basophils % (auto) 0.6 %; Eosinophils # (auto) 0.15 K/uL (0-0.50); Eosinophils % (auto) 2.1 %; Hematocrit (blood only) 34.1 % (42.0-52.0); Hemoglobin 11.3 g/dl (14.0-18.0); Immature Granulocytes # (auto) 0.03 K/uL (0.01-0.20); Immature Granulocytes % (auto) 0.4 %; Lymphocytes # (auto) 0.99 K/uL (1.2-3.4); Lymphocytes % (auto) 13.8 %; Mean Corpuscular Hemoglobin 31.1 pg (25.0-34.0); Mean Corpuscular Hgb Conc 33.1 g/dL (32.0-36.0); Mean Corpuscular Volume 93.9 fL (80.0-100.0); Mean Platelet Volume 9.2 fL (9.4-12.4); Monocytes # (auto) 0.93 K/uL (0.11-0.59); Monocytes % (auto) 12.9 %; Neutrophils # (auto) 5.05 K/uL (1.40-6.50); Neutrophils % (auto) 70.2 %; Platelet Count 161 K/uL (130-400); RDW Coefficient of Variation 12.7 % (11.5-14.5); RDW Standard Deviation 44.2 fL (36.4-46.3); Red Blood Count 3.63 M/uL (4.70-6.10); White Blood Count 7.19 K/ul (4.8-10.8)
[2022-11-25 07:58] LABS: Albumin Globulin Ratio 1.4 (0.9-2); Albumin Level 3.4 gm/dl (3.4-5.0); BUN Creatinine Ratio 11.6 (10-20); Bilirubin,Total 1.4 mg/dl (0.2-1.0); Calcium 8.5 mg/dl (8.6-10.3); Creatinine Clr Calc Pharmacy 51.1 ml/min; Est GFR (African American) 51.5 ml/min; Est GFR (Non-African American) 44.5 ml/min; Globulin 2.5 gm/dl (2.5-4.0); Magnesium 1.9 mg/dl (1.7-2.4); Total Protein 5.9 gm/dl (6.0-8.3)
[2022-11-25] MEDS: LOSARTAN POTASSIUM 50 MG TAB PO SCH (08:34)
[2022-11-25] MEDS: amLODIPine BESYLATE 5 MG TAB PO SCH (08:34)
[2022-11-25] MEDS: FAMOTIDINE 20 MG in SYRINGE 3 ML IV SCH ×2 (08:43→23:31)
--- NOTE | 2022-11-25 09:36 | Surgery Progress Note ---
Date of Service November 25, 2022 Assessment & Plan (1) Acute cholecystitis: Plan: laparoscopic cholecystectomy vs percutaneous cholecystostomy tube pending cardiology completion evaluation and risk stratification, concerning appearance of SOB... echo is being read today. Admission and Anticipated Discharge Date Admission Date: November 24, 2022 Subjective Patient seen this am. Says he still has significant TTP at the RUQ and was just seen by the craft recruiter. He denies fevers, chills or nausea. Patient admits to some SOB secondary to nose stuffiness which he says he has until he can get up and take a warm shower. Physical Exam Constitutional: + obese and cooperative; no acute distress, not ill appearing and no altered mental status Respiratory: + uses accessory muscles; no respiratory distress, no labored breathing and + not able to speak in complete sentence Cardiovascular: Rate/Rhythm: regular rate Extremities: no calf tenderness Gastrointestinal (Abdomen): Percussion/Palpation: + abdomen tender (RUQ), + guarding (Voluntary) and abdomen soft; abdomen not rigid Results & Data Vital Signs (Past 12 Hours) Vital Signs Temp Pulse Pulse Resp BP Pulse Ox O2 Del Method 11/25/22 07:47 71 11/25/22 06:40 37.0 C 70 18 118/63 92 Room Air 11/25/22 03:49 37.1 C 77 20 95/46 L 92 CPAP 11/24/22 22:30 65 11/24/22 22:43 37.2 C 73 20 128/62 94 Room Air PG Care Time/CCT Total # of Minutes Spent Total Time Spent with Patient: Total time spent is greater than 50% in coordination of care (as documented) at patient's floor/unit and/or counseling patient: [place] [address] SUB INP/OBS CARE 1/25MIN Patient Type Established History Problem Focused Exam Problem Focused Medical Decision Making Straight Forward Diagnoses Acute cholecystitis K81.0
--- NOTE | 2022-11-25 10:14 | Cardiology Consultation ---
Date of Consultation November 25, 2022 Assessment & Plan (1) Preop cardiovascular exam: (2) Acute cholecystitis: (3) ASCVD (arteriosclerotic cardiovascular disease): (4) S/P CABG x 3: (5) Diastolic congestive heart failure: (6) PAF (paroxysmal atrial fibrillation): (7) Cardiac pacemaker in situ: Plan 82-year-old male admitted with acute cholecystitis, referred for cardiology consultation for preoperative risk stratification. Patient without recent MA or unstable angina. Dyspnea has been stable for the past 6-12 months with patient able to achieve 3-4 Mets, previously deferring stress testing when discussed in 04/2022. LV function preserved by prior echo (echo pending this admission), without hemodynamically significant valvular disease. Volume status is compensated. Patient maintaining sinus rhythm (history of atrial fibrillation/flutter), with an appropriately functioning dual-chamber Medtronic pacemaker. Options discussed. Risks explained - high risk of perioperative complications though without overt cardiac contraindications, necessary procedure. Benefits appear greater than the associated risks with patient aware of and accepting of said risks. Recommend uninterrupted continuation of metoprolol, aspirin, and amlodipine perioperatively. Standard pacemaker precautions should be taken. Resume anticoagulation postoperatively when determined to be safe. Supervising Physician Co-Signing Physician Notes I have reviewed the advanced practitioner documentation and agree. I saw and evaluated the patient on date of service referenced in note and have performed the following medically appropriate history and/or exam: Patient presents with acute cholecystitis. The patient did report dyspnea on exertion at outpatient evaluation approximately 6 months ago and stress testing was offered at that time but he declined. Since then, he states that his shortness of breath has not really changed and he blames it on his sinuses and being overweight. He denies any exertional chest discomfort. I had a lengthy discussion with the patient in regards to his perioperative cardiovascular risk. Given the fact that he has ongoing dyspnea with underlying coronary artery disease he was counseled that I would place him as a high risk for any adverse perioperative cardiovascular event with the risk being approximately greater than 5%. He was further counseled that no further cardiac testing or intervention would further lower that risk. He states he understands, he is excepting that risk and wishes to proceed with surgery. I see no benefit from delaying from a cardiac standpoint at this time. General: Awake, alert and oriented x 3. No acute distress. HEENT: Normocephalic, atraumatic. Pupils equal, round and reactive to light and accommodation. Extraocular muscles are intact. Anicteric sclera. Moist mucous membranes. Neck: No JVD. No bruit. Cardiovascular: Regular. Positive S-4. Normal S-1 and S-2. No S-3. No murmurs or rubs. Pulmonary: Clear to auscultation B/L. No rales, rhonchi or wheezing Abdomen: Deferred Extremities: No clubbing, cyanosis or edema. +2 pedal pulses bilaterally. Skin: Warm and dry. History of Present Illness Reason for Consultation: Preoperative cardiology consultation Requesting Physician: Montserrat Attending Physician: Montserrat History of Present Illness Mr. Petey Rodriguez Jr. is an 82-year-old male who is being seen today for preoperative cardiology consultation. Patient presented to [facility] on November 23, 2022 with a 2-day history of right upper quadrant discomfort radiating into the substernal area. Symptoms aggravated by eating as well as palpation of the right upper quadrant area. CT imaging revealed findings compatible with acute cholecystitis with gallbladder ultrasound revealing a dilated gallbladder measuring 13.5 cm in length and 5.4 cm in diameter with gallbladder wall thickening measuring 5 mm with pericholecystic fluid and dependent calculi. Eliquis anticoagulation last received in the morning of November 23, 2022. Patient carries a history of longstanding hypertension as well as dyslipidemia. In early 2007 patient notes attempted jogging at his daughter's house in [place], experiencing substernal chest tightness with associated shortness of breath. Patient notes ignoring symptoms at that time, symptoms worsening with patient unable to utilize the snowblower. Patient ultimately referred for stress testing followed by diagnostic cardiac catheterization revealing severe multivessel coronary artery disease including a 90% proximal LAD stenosis, 90% narrowing of a large LAD diagonal, 90% narrowing of the circumflex obtuse marginal, and a 100% occlusion of the right coronary artery. LV systolic function preserved. Patient referred to [facility], undergoing coronary artery bypass grafting in November 2007, receiving a ALCAZAR graft to the LAD, a SVG graft to the OM, and an SVG graft to the PDA. Postoperative course complicated by right p neumothorax as well as postoperative atrial fibrillation/flutter with associated transient ischemic attack. In January 2018 he underwent cardioversion successfully, without difficulty. Additional issues include sick sinus syndrome status post March 24, 2021 dual-chamber pacemaker implantation by Dr[facility]s Mills at [facility]. Post pacemaker implantation patient was noted to be in atrial flutter, ultimately undergoing successful cardioversion on June 02, 2021. Additional medical issues include diastolic congestive heart failure, obstructive sleep apnea on CPAP therapy, GERD. In December 2019 patient presented for preoperative cardiology evaluation prior to lumbar spine intervention. Lexiscan nuclear stress testing on January 31, 2020 showed no evidence of infarct or ischemia. Resting echocardiography revealed preserved LV systolic function, ejection fraction 60 to 64%, with grade 2 diastolic dysfunction, moderately calcified aortic valve, and a mildly dilated aortic root as well as proximal ascending aorta. Pacemaker interrogation last performed on September 21, 2022 demonstrated appropriate function, 12.3 years remaining longevity. Rhythm predominantly atrial paced, 90.5%. RV paced 0.3% of the time. Time in AT/AF: Less than 0.1%. Patient denies chest pain, tightness, or discomfort. He describes a moderate amount of exertional dyspnea. Notes [facility]. Notes being able to golf while utilizing a cart, also without difficulty. Patient is able to perform all activities of daily living without significant pain or dyspnea. He denies progression in dyspnea and notes no significant change compared to at least 6 months ago. No palpitations. No resting or nocturnal dyspnea. No orthopnea or PND. Peripheral edema accumulates throughout the day and resolves overnight. No lightheadedness or dizziness. No recent colds, fevers, chills, or night sweats. No melena, hematochezia, or hematuria. Social History: Former smoker. No smokeless tobacco. Occasional alcoholic drink. No illegal drug use. 42 years service. Family History: Positive for CAD in both parents. Allergies Allergy/AdvReac Type Severity Reaction Status Date / Time antivenin,crotalidae Allergy Intermediate Hives Verified 11/24/22 02:49 polyvalent imm Home Medications Medication Instructions Recorded Confirmed Type biotin 1 mg tablet 1 mg PO QAM 06/15/19 11/24/22 History coenzyme Q10 200 mg capsule 200 mg PO QAM 06/15/19 11/24/22 History multivitamin (Daily Multi-Vitamin 0.5 tab PO BID 06/15/19 11/24/22 History tablet) nitroglycerin 0.4 mg sublingual 0.4 mg sublingual UD PRN Angina 06/15/19 11/24/22 History tablet triamcinolone acetonide 0.1 % 1 applic topical UD PRN Rash #1 g 06/15/19 11/24/22 History topical ointment zinc 50 mg tablet 50 mg PO QAM 06/15/19 11/24/22 History ascorbic acid (vitamin C) 1,000 mg 1 g PO QAM 11/30/19 11/24/22 History tablet (Vitamin C) psyllium husk 3.4 gram/5.4 gram 2 tsp PO QAM 11/30/19 11/24/22 History oral powder (Metamucil) acetaminophen 500 mg tablet 500 mg PO Q6H PRN Pain 02/05/20 11/24/22 History (Tylenol Extra Strength) amlodipine 5 mg tablet 5 mg PO QAM 02/05/20 11/24/22 History furosemide 20 mg tablet (Lasix) 20 mg PO QAM 01/07/21 11/24/22 History spironolactone 25 mg tablet 25 mg PO QAM 01/07/21 11/24/22 History (Aldactone) aspirin 81 mg tablet,delayed 81 mg PO HS 05/14/21 11/24/22 History release (Chanelle Low Dose Aspirin) potassium chloride 10 mEq 10 meq PO TID 05/14/21 11/24/22 History capsule,extended release losartan 100 mg tablet (Cozaar) 100 mg PO QAM #90 tabs 04/17/22 11/24/22 Rx albuterol sulfate 90 mcg/actuation 2 puff inhalation Q4H PRN 09/24/22 11/24/22 Rx aerosol inhaler shortness of breath or wheezing #8.5 grams atorvastatin 40 mg tablet 40 mg PO HS #90 tabs 10/05/22 11/24/22 Rx famotidine 20 mg tablet (Pepcid) 20 mg PO BID #180 tabs 10/05/22 11/24/22 Rx terazosin 2 mg capsule 4 mg PO DAILY #180 caps 10/08/22 11/24/22 Rx apixaban 2.5 mg tablet (Eliquis) 2.5 mg PO BID 11/24/22 11/24/22 History metoprolol succinate 25 mg 37.5 mg PO HS 11/24/22 11/24/22 History tablet,extended release 24 hr Patient History Medical History 2018 novel coronavirus not detected Back pain with history of spinal surgery Dr Smith -2019 CAD (coronary artery disease) s/p CABG x4 (2007) Chronic back pain Chronic low back pain Close exposure to 2018 novel coronavirus Close exposure to 2019-nCoV Cough GERD (gastroesophageal reflux disease) controlled Hearing loss in left ear Hx of cardiac pacemaker 2020 Hyperlipidemia Hypertension Medicare annual wellness visit, subsequent Nasal congestion Osteoarthritis Prediabetes Retained metal fragment right knee d/t accident Right knee DJD Sleep apnea CPAP SNHL (sensorineural hearing loss) Spinal stenosis Transient ischemic attack (TIA) TIA vs CVA (2007)/a few days after CABG/no neurologist, no deficits Ulnar nerve palsy Surgical History History of appendectomy History of arthroscopy of right knee x2 meniscus repair History of basal cell carcinoma (BCC) excision right arm History of bilateral carpal tunnel release History of bilateral cataract extraction History of cardiac cath 2007 @ [facility], no stents History of colonoscopy History of surgery left ring finger fx repair--hardware removed History of tonsillectomy History of total right knee replacement (TKR) History of wisdom tooth extraction Hx of vasectomy S/P CABG x 4 [facility] @ 2007--follows with Dr. Mayes S/P placement of cardiac pacemaker Status post anal fissurectomy Status post Mohs surgery on left cheek Family History Mother Angina pectoris Family history of diabetes mellitus Father Myocardial infarction Grandmother Cancer Grandfather Cardiac disorder Cancer Grandmother (Maternal) Family history of diabetes mellitus Social History Smoking Status: Never smoker Tobacco Type: Cigarettes Second Hand Exposure: Yes (AT WORK YRS AGO); Hx Alcohol Use: No Hx Substance Use: No Preferred Language: [place] Zealander Communication Ability: Effective Hoistman Required: No Beliefs That Will Affect Care: None marital status: Current Living Situation: Spouse current occupational status: retired Other Information That Helps Us Care for You: No Feels Safe at Home: Yes Seatbelt Use: always Assistive Devices: CPAP and Walker Review of Systems Review of Systems: History of skin cancer. Chronic back pain. Status post carpal tunnel release. Kidney cysts. Prediabetes. CKD. BPH. Diverticulosis. Complete review of systems is otherwise as stated above, negative, noncontributory. Physical Exam Physical Exam: General: A&Ox3. NAD. HENT: Normocephalic. Atraumatic. Eyes: PER. Conjunctiva pink, sclera clear. Neck: No carotid bruits. No JVD. Heart: RRR. Grade I-II/ systolic ejection murmur. Lungs: Clear to auscultation. Abdomen: +BS. + RUQ tenderness. Extremities: No significant edema. Stasis changes. No clubbing. No cyanosis. Limited neurological examination is without focal deficits. Results & Data Vital Signs (Past 12 Hours) Vital Signs Temp Pulse Pulse Resp BP Pulse Ox O2 Del Method 11/25/22 07:47 71 11/25/22 06:40 37.0 C 70 18 118/63 92 Room Air 11/25/22 03:49 37.1 C 77 20 95/46 L 92 CPAP 11/24/22 22:30 65 11/24/22 22:43 37.2 C 73 20 128/62 94 Room Air Laboratory Results Cardiac Enzymes 11/24/22 11/24/22 11/25/22 Range/Units 05:41 05:41 06:41 AST 17 (13-39) U/L Troponin I High Sens 34.1 H Cancelled (0-20) pg/ml CBC 11/25/22 Range/Units 06:41 WBC 7.19 (4.8-10.8) K/ul RBC 3.63 L (4.70-6.10) M/uL Hgb 11.3 L (14.0-18.0) g/dl Hct 34.1 L (42.0-52.0) % Plt Count 161 (130-400) K/uL Neut # (Auto) 5.05 (1.40-6.50) K/uL Lymph # (Auto) 0.99 L (1.2-3.4) K/uL [place] # (Auto) 0.93 H (0.11-0.59) K/uL Eos # (Auto) 0.15 (0-0.50) K/uL Baso # (Auto) 0.04 (0-0.2) K/uL Comprehensive Metabolic Panel 11/25/22 Range/Units 06:41 Sodium 137 (136-145) mmol/L Potassium 4.0 (3.5-5.1) mmol/L Chloride 103 (98-107) mmol/L Carbon Dioxide 28 (21-32) mmol/L BUN 17 (6-23) mg/dl Creatinine 1.46 H (0.6-1.4) mg/dl Glucose 120 H (70-99(Fasting)) mg/dl Calcium 8.5 L (8.6-10.3) mg/dl AST 17 (13-39) U/L ALT 14 (7-52) U/L Alkaline Phosphatase 46 (34-104) U/L Total Protein 5.9 L (6.0-8.3) gm/dl Albumin 3.4 (3.4-5.0) gm/dl Intake and Output 11/24/22 11/25/22 11/25/22 22:59 06:59 14:59 Intake Total 1898.333 / 2589.500 471.167 / 2589.500 Balance 1898.333 / 2589.500 471.167 / 2589.500 Intake: IV 1748.333 / 2439.500 471.167 / 2439.500 Piperacillin/Tazobactam 4.5 gm 120 / 360 120 / 360 In Dextrose 5% 100 ml @ 30 mls/ hr IV Q8H [facility] Rx#:[id number] Sodium Chloride 0.9% 1000ML 1, 1628.333 / 1979.500 351.167 / 1979.500 000 ml @ 70 mls/hr IV .[id number] O[facility]G Rx#:[id number] Oral 150 / 150 Other: Other Intake Source npo Weight 111 kg Weight Measurement Method Built in [facility] Diagnostic Findings January 31, 2020 Lexiscan Interpretation Summary (as per Dr. Alvarez): The myocardial perfusion on the post stress and resting images is normal without evidence of infarct or ischemia. The baseline EKG revealed mild repolarization changes, that became more prominent post-stress, and therefore the EKG response is felt to be equivocal. Left ventricular cavity size is noted to be normal on the rest and stress studies. There is no stress-induced transient ischemic dilation of the left ventricle. Gated SPECT imaging reveals normal myocardial thickening and wall motion. The left ventricular ejection fraction was calculated to be 68%. January 31, 2020 TTE Interpretation Summary (as per Dr. Mayes) The left ventricular wall motion is normal. The qualitative LV ejection fraction is 60-64% (normal). The left ventricular diastolic function is moderately abnormal (grade II). The aortic valve is mildly calcified. The aortic root and proximal ascending aorta are mildly enlarged High-sensitivity troponin minimally elevated at 28.4, 27.9, 34.1 pg/mL Admission EKG revealed sinus rhythm at 93 bpm with occasional premature ventricular complexes, nonspecific T wave abnormality. Lateral T wave changes not significantly changed compared to prior. Resting echocardiography pending. Continuous telemetry monitoring reveals sinus rhythm predominantly in the 60s and 70s.
--- NOTE | 2022-11-25 14:42 | Hospitalist Progress Note ---
Date of Service November 25, 2022 Assessment & Plan (1) Acute cholecystitis: Plan: 82 yo male with PMHx of HTN, CAD s/p CABG, GERD, diastolic CHF, SSS s/p permanent pacemaker, h/o afib and flutter on eliquis, HLD, PEGGY on cpap, and BPH presents for 1 day RUQ pain with radiation into chest. Evidence of acute cholecystitis on CT abd/pel and on US -awaiting lap florencio-delayed due to taking Eliquis and awaiting ECHO, Cardiac assessment -Cardio states high risk for periop complications but benefit outweighs risk -continue maintenance IVF but lower to 70 mL/hr to avoid volume overload -continue IV Zosyn -follow CBC, CMP CAD s/p CABG #HFpEF #HTN -chest pain likely radiating from RUQ. Low concern for ACS. Troponin peaked, 28. EKG without ischemic changes. -cont. ASA, statin, metoprolol, losartan, amlodipine, but hold lasix and spironolactone while NPO and on IVFs #sinus sick syndrome s/p permanent pacemaker #h/o afib and flutter -EKG in NSR. Monitor on tele. -chronically on eliquis which we will hold for now given upcoming cholecystectomy #GERD -cont. famotidine #HLD -cont. statin #BPH -cont. terazosin DVT ppx: SCDs Code Status: Full Dispo: med tele (2) CAD (coronary artery disease): (3) Dyslipidemia: (4) GERD (gastroesophageal reflux disease): (5) HTN (hypertension): (6) PEGGY (obstructive sleep apnea): (7) Atrial flutter: Admission and Anticipated Discharge Date Admission Date: November 24, 2022 Subjective Abd pain improved except to the touch. No nausea, is feeling hungry from being NPO Denies chest pain. Discussed care with Surgery and Cardiology PA Tele with paced rhythm, rates 60-70s Physical Exam Constitutional: WD/WN, vitals as above Respiratory: normal respiratory effort, lungs clear to auscultation Cardiovascular: Rate/Rhythm: regular rate and regular rhythm Heart Sounds: no murmur Extremities: no edema Gastrointestinal (Abdomen): Inspection/Auscultation: abdomen normal to inspection; abdomen not distended Percussion/Palpation: + abdomen tender (mild RUQ, no guarding) and abdomen soft Psychiatric: A+Ox3, euthymic affect Results & Data Results & Data Vital Signs (Past 12 Hours) Vital Signs Temp Pulse Pulse Resp BP Pulse Ox O2 Del Method 11/25/22 11:29 36.7 C 70 18 131/72 92 Room Air 11/25/22 07:47 71 11/25/22 06:40 37.0 C 70 18 118/63 92 Room Air 11/25/22 03:49 37.1 C 77 20 95/46 L 92 CPAP Laboratory Results CBC, CMP reviewed PG Care Time/CCT Total # of Minutes Spent Total Time Spent with Patient: Total time spent is greater than 50% in coordination of care (as documented) at patient's floor/unit and/or counseling patient: Coding Level of Care Code 91668 SUB INP/OBS CARE 2/35MIN Diagnoses Acute cholecystitis K81.0 CAD (coronary artery disease) I25.10 Dyslipidemia E78.5 GERD (gastroesophageal reflux disease) K21.9 HTN (hypertension) I10 PEGGY (obstructive sleep apnea) G47.33 Atrial flutter I48.92
[2022-11-25] MEDS: ACETAMINOPHEN 1,000 MG/100 ML VIAL IV PRN (17:55)
[2022-11-25] MEDS ORDERED: BUPIVACAINE/EPINEPHRINE 0.25% 1:200,000 30 ML VIAL ONE (18:40)
[2022-11-25] MEDS ORDERED: BUPIVACAINE 0.5 % 5 MG/1 ML MPF 30ML VIAL ONE (18:41)
[2022-11-25] MEDS ORDERED: EPINEPHrine HCL INJ 1 MG/ML 30ML ONE (18:42)
[2022-11-25] MEDS ORDERED: PROPOFOL IV EMULSION 10 MG/ML 20 ML VIAL IV ONE (18:42)
[2022-11-25] MEDS ORDERED: ROCURONIUM BROMIDE 10 MG/ML 5 ML VIAL IV ONE (18:42)
[2022-11-25] MEDS ORDERED: fentaNYL citrate PF 100 MCG/2 ML VIAL ONE ×4 (18:42→22:10)
[2022-11-25] MEDS ORDERED: EPINEPHrine INJ 1 MG/ML AMP ONE (18:45)
[2022-11-25] MEDS ORDERED: ATROPINE SULFATE 0.1 MG/ML 10ML SYR IV PRN (19:09)
[2022-11-25] MEDS ORDERED: ePHEDrine sulfate 50 MG/ML AMP IV PRN (19:09)
[2022-11-25] MEDS ORDERED: HYDROmorphone INJ 2 MG/ML SYR/VIAL IV PRN (19:09)
[2022-11-25] MEDS ORDERED: ONDANSETRON INJ 2 MG/ML 2 ML VIAL IV PRN (19:09)
--- NOTE | 2022-11-25 19:09 | Anesthesiology Consultation ---
Date of Service November 25, 2022 Assessment & Plan ASA ASA3 Proposed Anesthesia Anesthesia Type: General Risk / Benefits Reviewed With: PT / POA / Parent / Guardian, Accepts Plan and Informed Consent Obtained History Surgery Operation Date: 11/25/22 19:00 Proposed Procedures p Laparoscopic Cholecystectomy - Phoebe Correa DO Height/Weight Height: 6 ft Weight: 111 kg Allergies Allergy/AdvReac Type Severity Reaction Status Date / Time antivenin,crotalidae Allergy Intermediate Hives Verified 11/25/22 18:58 polyvalent imm Medications Home Medications Medication Instructions Recorded Confirmed Last Taken biotin 1 mg tablet 1 mg PO QAM 06/15/19 11/24/22 01/07/21 coenzyme Q10 200 mg capsule 200 mg PO QAM 06/15/19 11/24/22 01/07/21 multivitamin (Daily Multi-Vitamin 0.5 tab PO BID 06/15/19 11/24/22 01/07/21 tablet) nitroglycerin 0.4 mg sublingual 0.4 mg sublingual UD PRN Angina 06/15/19 11/24/22 Unknown tablet triamcinolone acetonide 0.1 % 1 applic topical UD PRN Rash #1 g 06/15/19 11/24/22 Unknown topical ointment zinc 50 mg tablet 50 mg PO QAM 06/15/19 11/24/22 01/07/21 ascorbic acid (vitamin C) 1,000 mg 1 g PO QAM 11/30/19 11/24/22 01/07/21 tablet (Vitamin C) psyllium husk 3.4 gram/5.4 gram 2 tsp PO QAM 11/30/19 11/24/22 01/07/21 oral powder (Metamucil) acetaminophen 500 mg tablet 500 mg PO Q6H PRN Pain 02/05/20 11/24/22 01/07/21 (Tylenol Extra Strength) amlodipine 5 mg tablet 5 mg PO QAM 02/05/20 11/24/22 01/07/21 furosemide 20 mg tablet (Lasix) 20 mg PO QAM 01/07/21 11/24/22 01/07/21 spironolactone 25 mg tablet 25 mg PO QAM 01/07/21 11/24/22 01/07/21 (Aldactone) aspirin 81 mg tablet,delayed 81 mg PO HS 05/14/21 11/24/22 Unknown release (Chanelle Low Dose Aspirin) potassium chloride 10 mEq 10 meq PO TID 05/14/21 11/24/22 Unknown capsule,extended release losartan 100 mg tablet (Cozaar) 100 mg PO QAM #90 tabs 04/17/22 11/24/22 Unknown albuterol sulfate 90 mcg/actuation 2 puff inhalation Q4H PRN 09/24/22 11/24/22 Unknown aerosol inhaler shortness of breath or wheezing #8.5 grams atorvastatin 40 mg tablet 40 mg PO HS #90 tabs 10/05/22 11/24/22 Unknown famotidine 20 mg tablet (Pepcid) 20 mg PO BID #180 tabs 10/05/22 11/24/22 Unknown terazosin 2 mg capsule 4 mg PO DAILY #180 caps 10/08/22 11/24/22 Unknown apixaban 2.5 mg tablet (Eliquis) 2.5 mg PO BID 11/24/22 11/24/22 11/23/22 09:00 metoprolol succinate 25 mg 37.5 mg PO HS 11/24/22 11/24/22 Unknown tablet,extended release 24 hr Active Medications Generic Name Dose Route Start Last Admin Trade Name Freq PRN Reason Stop Dose Admin Amlodipine Besylate 5 mg 11/24/22 09:00 11/25/22 08:34 Amlodipine Besylate 5 Mg Tab PO 12/24/22 08:59 5 mg QAM OLEG Administration Aspirin 81 mg 11/24/22 21:00 11/24/22 22:39 Aspirin 81 Mg Ectab PO 12/24/22 20:59 81 mg HS OLEG Administration Atorvastatin Calcium 40 mg 11/24/22 21:00 11/24/22 22:39 Atorvastatin 40 Mg Tab PO 12/24/22 20:59 40 mg HS OLEG Administration Acetaminophen 1,000 mg in 100 mls @ 400 mls/hr 11/24/22 04:29 11/25/22 18:41 Ofirmev IV 11/27/22 04:28 Infused Q8H PRN Infusion Pain or Fever Sodium Chloride 1,000 mls @ 70 mls/hr 11/24/22 05:54 11/25/22 17:56 Nss 1000ml IV 12/24/22 05:53 70 mls/hr .[id number] OLEG Administration Piperacillin Sod/Tazobactam 120 mls @ 30 mls/hr 11/24/22 10:00 11/25/22 13:48 Sod 4.5 gm/ Dextrose IV 12/04/22 09:59 Infused Q8H OLEG Infusion Protocol Famotidine 20 mg/ Syringe 5 mls @ 2.5 mls/min 11/24/22 09:00 11/25/22 08:43 IV 12/24/22 08:59 2.5 mls/min Q12 OLEG Administration Losartan Potassium 100 mg 11/24/22 09:00 11/25/22 08:34 Losartan Potassium 50 Mg Tab PO 12/24/22 08:59 100 mg QAM OLEG Administration Metoprolol Succinate 37.5 mg 11/24/22 21:00 11/24/22 22:40 Metoprolol Succ 25mg Ext Rel Tab PO 12/24/22 20:59 37.5 mg HS OLEG Administration Spironolactone 25 mg 11/24/22 09:00 11/24/22 08:43 Spironolactone 25 Mg Tab PO 12/24/22 08:59 25 mg QAM OLEG Administration Terazosin HCl 4 mg 11/24/22 21:00 11/24/22 22:44 Terazosin Hcl 1 Mg Cap PO 12/24/22 20:59 4 mg PM OLEG Administration NPO Date Last Intake of Fluids: 11/24/22 Time Last Intake of Fluids: 23:00 Date Last Intake of Solids: 11/24/22 Time Last Intake of Solids: 19:30 Past Medical History Medical History 2018 novel coronavirus not detected Back pain with history of spinal surgery Dr Smith CAD (coronary artery disease) s/p CABG x4 (2007) Chronic back pain Chronic low back pain Close exposure to 2018 novel coronavirus Close exposure to 2019-nCoV Cough GERD (gastroesophageal reflux disease) controlled Hearing loss in left ear Hx of cardiac pacemaker 2020 Hyperlipidemia Hypertension Medicare annual wellness visit, subsequent Nasal congestion Osteoarthritis Prediabetes Retained metal fragment right knee d/t accident Right knee DJD Sleep apnea CPAP SNHL (sensorineural hearing loss) Spinal stenosis Transient ischemic attack (TIA) TIA vs CVA (2007)/a few days after CABG/no neurologist, no deficits Ulnar nerve palsy Exercise / Class Metabolic Activity II 4-5 Yardwork/Stairs/Walk up hill Past Family History Family History Mother Angina pectoris Family history of diabetes mellitus Father Myocardial infarction Grandmother Cancer Grandfather Cardiac disorder Cancer Grandmother (Maternal) Family history of diabetes mellitus Past Surgical History Surgical History History of appendectomy History of arthroscopy of right knee x2 meniscus repair History of basal cell carcinoma (BCC) excision right arm History of bilateral carpal tunnel release History of bilateral cataract extraction History of cardiac cath 2007 @ [facility] [place], no stents History of colonoscopy History of surgery left ring finger fx repair--hardware removed History of tonsillectomy History of total right knee replacement (TKR) History of wisdom tooth extraction Hx of vasectomy S/P CABG x 4 [facility] [place] @ 2007--follows with Dr. Mayes S/P placement of cardiac pacemaker Status post anal fissurectomy Status post Mohs surgery on left cheek Past Anesthesia History No Hx of Anesthesia Complications and No Family Hx of Anesthesia Complications History of PONV No Hx of PONV and No Hx of Motion Sickness Social History Smoking Status: Never smoker Hx Alcohol Use: No Hx Substance Use: No substance use type: does not use Review of Systems denies fever/cough/ colds/ chest pain/ SOB/ +PEGGY denies PEGGY Physical Exam Vital Signs Last Vital Signs Temp 36.7 C 11/25/22 18:32 Pulse 70 11/25/22 18:32 Resp 18 11/25/22 18:32 BP 135/64 11/25/22 18:32 Pulse Ox 90 11/25/22 18:32 O2 Del Method Room Air 11/25/22 18:32 ENMT Mouth: no TMJ abnormality and no dentition abnormality Thyromental Distance: > or= 3.5 Finger Breadths Mallampati Class: II Neck neck extension not limited Respiratory normal respiratory effort; no respiratory distress Auscultation: lungs clear to auscultation bilaterally Cardiovascular Rate/Rhythm: regular rate and regular rhythm Neurologic moves all extremities Psychiatric Orientation: alert and oriented x 3 Testing Laboratory Results 11/25/22 06:41 11/25/22 06:41 PT 11.2 Seconds (9.0-12.0) 11/23/22 22:27 INR 1.1 (0.9-1.1) 11/23/22 22:27 APTT 30.8 Seconds (21.0-31.0) 11/23/22 22:27 Urine Color Yellow 11/24/22 02:54 Urine Appearance Clear (Clear) 11/24/22 02:54 Urine pH 5.5 (4.5-7.5) 11/24/22 02:54 Ur Specific [place] 1.042 (1.000-1.030) H 11/24/22 02:54 Urine Protein Negative (Negative) 11/24/22 02:54 Urine Glucose (UA) Negative (Negative) 11/24/22 02:54 Urine Ketones Negative (Negative) 11/24/22 02:54 Urine Nitrite Negative (Negative) 11/24/22 02:54 Ur Leukocyte Esterase Negative (Negative) 11/24/22 02:54 11/24/22 03:15 Aerobic Blood Culture - Preliminary Blood No growth in Aerobic bottle after 24 hours. Anaerobic Blood Culture - Preliminary No growth in Anaerobic bottle after 24 hours. 11/24/22 03:15 Aerobic Blood Culture - Preliminary Blood No growth in Aerobic bottle after 24 hours. Anaerobic Blood Culture - Preliminary No growth in Anaerobic bottle after 24 hours. Echocardiogram Date: 11/25/22 EF: 60-65
[2022-11-25] MEDS ORDERED: ONDANSETRON INJ 2 MG/ML 2 ML VIAL ONE (19:56)
[2022-11-25] MEDS ORDERED: DEXAMETHASONE SOD INJ 4 MG/ML VIAL ONE (19:56)
[2022-11-25] MEDS ORDERED: GLYCOPYRROLATE 0.2 MG/ML VIAL ONE (20:09)
[2022-11-25] MEDS ORDERED: NEOSTIGMINE METHYLSULFATE 1 MG/ML 10ML VIAL ONE (20:09)
[2022-11-25] MEDS: EPINEPHrine INJ 1 MG/ML AMP ONE ×2 (21:40→21:50)
--- NOTE | 2022-11-25 21:43 | Post Operative Brief Note ---
PG Immediate Post Op with CF Date of Surgery November 25, 2022 Pre & Post Diagnosis Operation Date: 11/25/22 19:00 Pre-Op Diagnosis: acute cholecystitis Post-Op Diagnosis: acute cholecystitis I identified the patient and participated in the time-out.: Yes Procedure Operation Date: 11/25/22 19:00 Actual Procedures p Laparoscopic Cholecystectomy(Not Applicable) - Phoebe Correa DO Surgeon Phoebe Correa, Adjutant General Vaughn Donald Estimated Blood Loss 35 Findings Consistent with Post-Op Diagnosis Purulent, edematous severely infected gallbladder with thick rind Specimens Specimen Description: Permanent A. Gallbladder
--- NOTE | 2022-11-25 22:06 | Operative Report ---
PG Post Operative Report Pre & Post Diagnosis Operation Date: 11/25/22 19:00 Pre-Op Diagnosis: acute cholecystitis Post-Op Diagnosis: acute cholecystitis I identified the patient and participated in the time-out.: Yes Procedure Operation Date: 11/25/22 19:00 Actual Procedures p Laparoscopic Cholecystectomy(Not Applicable) - Phoebe Correa DO Surgeon Phoebe Correa DO Planning Feeder Vaughn Donald Estimated Blood Loss 35 Findings Consistent with Post-Op Diagnosis Specimens Gallbladder Drains 10 [place] ENRIQUE Anesthesia Type General Complications None Indications Acute cholecystitis Description of Procedure The patient was brought back to the operating room and placed on the operating room table in supine position. He was connected to cardiac and O2 monitoring. The patient was administered general anesthesia and an airway was secured. The abdomen was prepped and draped in typical sterile fashion. A small stab incision was made just superior to the umbilicus and the intra-abdominal space was accessed with a Veress needle. CO2 insufflation was initiated to a goal pressure of 15 mmHg. Once this pressure was reached, a 5 mm trocar was inserted and using a 5 mm laparoscope and Visiport for direct visualization., An 11 mm trocar was inserted under direct visualization at the epigastric area. 2 additional 5 mm trocars were inserted along the right subcostal margin under direct visualization. There was no injury identified to be caused by the insertion of the trocars. The gallbladder was encased with omental fat at the right upper quadrant. The gallbladder needed to be tediously and gently dissected this was done using blunt dissection to be freed from the surrounding encasing omentum that was thickened. There was also a thick rind around the gallbladder. This made it very difficult to manipulate the gallbladder as it was also very firm and distended. A harpoon needle was used to suction contents from the gallbladder. Initially clear fluid was aspirated. As the gallbladder was then grasped at the fundus and retracted additional dissection was needed to remove more omentum to expose the infundibulum of the gallbladder. These tissues were oozy. Bleeding was controlled with gentle cautery along the way. Once the infundibulum was exposed this was able to be grasped and retracted laterally. Joan and gentle dissection was undertaken at the cystic triangle to expose the cystic duct. Throughout the process of manipulating the gallbladder there was spillage from the site of aspiration and tearing beneath the rind at the area of the fundus. Black stones were identified as well as a small amount of greenish-yellow purulent fluid that was inadvertently suctioned away and not able to be captured for culture. The cystic duct was also encased with rind. The duct was thickened and I used a [place] dissector to milked back what seemed to be a stone entering into the ducts. Once the duct was clear of rind and confirmed to be going into the gallbladder the cystic duct was clipped with 3 10 mm clips proximally and 1 distally. The cystic duct was transected using laparoscopic frankie. The cystic triangle was further dissected using blunt dissection of loose fatty tissue at which time an apparent cystic artery was identified that coursed the surface of the liver bed for several centimeters. The gallbladder was able to be gently peeled away from the cystic plate initially leaving a good portion of the cystic artery behind. Eventually closer to the infundibulum the cystic artery had finally dove directly into the gallbladder and could no longer be preserved. Three 5 mm clips were placed proximally on this vessel and 1 distally. This artery leading to the gallbladder was then transected using laparoscopic scissors. The remainder of the gallbladder was dissected away from the liver bed using cautery. The gallbladder was removed and placed in a labeled container sent to pathology for further analysis. There was bleeding at the liver bed and this was controlled with cautery. The right upper quadrant was copiously irrigated with at least 3 L liters of saline and rechecked multiple times for hemostasis. Whenever hemostasis seem to be questionable cautery was used until there was absolutely no evidence of bleeding at the liver bed. A 10 [place] ENRIQUE drain was inserted at the right upper quadrant. All instruments were removed, CO2 insufflation was discontinued and excess CO2 was evacuated from the abdomen. All trocars were removed. The epigastric incision was closed at the level of the fascia with 0 Vicryl. Local anesthetic was injected into all incision sites. The dermis at all 4 incisions was brought together with 4-0 Monocryl or 4-0 Vicryl. The skin was dressed with Dermabond. The patient tolerated the procedure well he was awakened from anesthesia, the secure airway was removed and he was transferred to recovery in stable condition. I attest to the content of the Intraoperative Record and any orders documented therein. Any exceptions are noted below.
[2022-11-25] MEDS: fentaNYL citrate PF 100 MCG/2 ML VIAL IV PRN ×2 (22:09→22:14)
--- NOTE | 2022-11-25 22:27 | Anesthesiology Progress Note ---
Date of Service November 25, 2022 Anesthesia Post Procedure Vital Signs Vital Signs: Temp Pulse Pulse Pulse Resp BP Pulse Ox 11/25/22 22:25 81 113/64 95 11/25/22 22:15 82 106/54 L 95 11/25/22 22:05 81 18 132/55 L 95 11/25/22 21:59 36.1 C L 82 18 120/55 L 95 11/25/22 19:00 36.7 C 74 20 142/61 H 92 11/25/22 18:32 36.7 C 70 18 135/64 90 11/25/22 11:29 36.7 C 70 18 131/72 92 11/25/22 07:47 71 11/25/22 06:40 37.0 C 70 18 118/63 92 11/25/22 03:49 37.1 C 77 20 95/46 L 92 11/24/22 22:30 65 11/24/22 22:43 37.2 C 73 20 128/62 94 O2 Del Method O2 Flow Rate 11/25/22 22:25 Nasal Cannula 4 11/25/22 22:15 Nasal Cannula 4 11/25/22 22:05 Nasal Cannula 4 11/25/22 21:59 Nasal Cannula 4 11/25/22 19:00 Room Air 11/25/22 18:32 Room Air 11/25/22 11:29 Room Air 11/25/22 07:47 11/25/22 06:40 Room Air 11/25/22 03:49 CPAP 11/24/22 22:30 11/24/22 22:43 Room Air Pain Intensity Chest: Pain Intensity: 6 Transfer of Care Handoff Completed per policy Notes Mental Status: alert / awake / arousable and participated in evaluation Patient Amnestic to Procedure: Yes Nausea / Vomiting: adequately controlled Pain: adequately controlled Airway Patency, RR, SpO2: stable & adequate BP & HR: stable & adequate Hydration State: stable & adequate Anesthetic Complications: no major complications apparent and Pt Satisfied with anesthetic care
[2022-11-25] MEDS ORDERED: MoRPHine SULFATE 4 MG/ML 1 ML CARP\\VIAL IV PRN (23:02)
[2022-11-25] MEDS: ATORVASTATIN 40 MG TAB PO SCH (23:32)
[2022-11-25] MEDS: ASPIRIN 81 MG ECTAB PO SCH (23:32)
[2022-11-25] MEDS: METOPROLOL SUCC 25MG EXT REL TAB PO SCH (23:32)
[2022-11-25] MEDS: TERAZOSIN HCL 1 MG CAP PO SCH (23:32)
[2022-11-26] MEDS: PIPERACILLIN/TAZOBACTAM 4.5 GM in DEXTROSE 5% 100 ML IV SCH ×3 (01:51→16:35)
[2022-11-26] MEDS: ACETAMINOPHEN 1,000 MG/100 ML VIAL IV PRN ×2 (05:46→15:50)
[2022-11-26 06:45] LABS: Hematocrit (blood only) 34.1 % (42.0-52.0); Hemoglobin 11.7 g/dl (14.0-18.0); Mean Corpuscular Hemoglobin 31.5 pg (25.0-34.0); Mean Corpuscular Hgb Conc 34.3 g/dL (32.0-36.0); Mean Corpuscular Volume 91.7 fL (80.0-100.0); Platelet Count 180 K/uL (130-400); RDW Coefficient of Variation 12.5 % (11.5-14.5); Red Blood Count 3.72 M/uL (4.70-6.10); White Blood Count 11.04 K/ul (4.8-10.8)
[2022-11-26 07:05] LABS: Basophils # (auto) 0.01 K/uL (0-0.2); Basophils % (auto) 0.1 %; Immature Granulocytes # (auto) 0.04 K/uL (0.01-0.20); Immature Granulocytes % (auto) 0.4 %; Lymphocytes # (auto) 0.29 K/uL (1.2-3.4); Lymphocytes % (auto) 2.6 %; Monocytes # (auto) 0.72 K/uL (0.11-0.59); Monocytes % (auto) 6.5 %; Neutrophils # (auto) 9.98 K/uL (1.40-6.50); Neutrophils % (auto) 90.4 %
[2022-11-26 07:32] LABS: Albumin Globulin Ratio 1.3 (0.9-2); Albumin Level 3.5 gm/dl (3.4-5.0); BUN Creatinine Ratio 14.5 (10-20); Bilirubin,Total 0.9 mg/dl (0.2-1.0); Calcium 8.3 mg/dl (8.6-10.3); Creatinine Clr Calc Pharmacy 54.1 ml/min; Est GFR (African American) 55.2 ml/min; Est GFR (Non-African American) 47.6 ml/min; Globulin 2.8 gm/dl (2.5-4.0); Potassium 4.6 mmol/L (3.5-5.1); Total Protein 6.3 gm/dl (6.0-8.3)
[2022-11-26] MEDS: SODIUM CHLORIDE 0.9% 1000ML 1,000 ML IV SCH (08:19)
[2022-11-26] MEDS: LOSARTAN POTASSIUM 50 MG TAB PO SCH (08:20)
[2022-11-26] MEDS: amLODIPine BESYLATE 5 MG TAB PO SCH (08:20)
[2022-11-26] MEDS: FAMOTIDINE 20 MG in SYRINGE 3 ML IV SCH (08:23)
--- NOTE | 2022-11-26 10:08 | Cardiology Progress Note ---
Date of Service November 26, 2022 Assessment & Plan (1) Preop cardiovascular exam: (2) Acute cholecystitis: (3) ASCVD (arteriosclerotic cardiovascular disease): (4) S/P CABG x 3: (5) Diastolic congestive heart failure: (6) PAF (paroxysmal atrial fibrillation): (7) Cardiac pacemaker in situ: Plan 82-year-old male admitted with acute cholecystitis, status post November 25, 2022 laparoscopic cholecystectomy. Resume prior to arrival cardiac medications including anticoagulation when determined to be safe Outpatient cardiology follow-up as scheduled in November or as needed. Please contact with any questions or concerns Admission and Anticipated Discharge Date Admission Date: November 24, 2022 Supervising Physician Co-Signing Physician Notes I have reviewed the advanced practitioner documentation and agree. I saw and evaluated the patient on date of service referenced in note and have performed the following medically appropriate history and/or exam: pt tolerated surgery well. No cardiac complaints. Resume previous cardiac meds. Subjective Patient seen and examined earlier this morning. Chart, medications, telemetry reviewed. Status post November 25, [address] Phoebe Franklin, DO Patient feels somewhat tired, with mild right upper quadrant pain only. No chest pain. No new or worsening shortness of breath. No PND. Continuous telemetry monitoring reveals sinus rhythm in the 70s. Review of Systems Review of Systems: Complete review of systems is otherwise as stated above, negative, noncontributory. Physical Exam Physical Exam: General: A&Ox3. NAD. HENT: Normocephalic. Atraumatic. Neck: No JVD. Heart: RRR. Grade I-II/ systolic ejection murmur. Lungs: Clear to auscultation anteriorly Abdomen: +BS. RUQ tenderness. Extremities: No significant edema. Limited neurological examination is without focal deficits. Results & Data Vital Signs (Past 12 Hours) Vital Signs Temp Pulse Pulse Pulse Resp BP Pulse Ox 11/26/22 09:34 11/26/22 07:27 79 11/26/22 07:13 36.8 C 80 18 120/65 93 11/26/22 06:19 36.9 C 74 18 117/62 93 11/26/22 04:17 36.7 C 75 20 117/70 93 11/26/22 00:01 81 11/26/22 00:04 11/25/22 23:50 36.8 C 86 20 115/72 93 11/25/22 23:15 36.8 C 82 22 115/82 11/25/22 22:45 36.5 C 80 81 22 119/61 90 11/25/22 23:00 36.5 C 80 20 114/61 93 11/25/22 22:35 36.2 C L 11/25/22 22:25 81 113/64 95 11/25/22 22:15 82 106/54 L 95 O2 Del Method O2 Flow Rate 11/26/22 09:34 Room Air 11/26/22 07:27 11/26/22 07:13 Nasal Cannula 4 11/26/22 06:19 Nasal Cannula 2 11/26/22 04:17 Nasal Cannula 4 11/26/22 00:01 11/26/22 00:04 Nasal Cannula, BiPAP 4 11/25/22 23:50 Nasal Cannula 4 11/25/22 23:15 11/25/22 22:45 Nasal Cannula 4 11/25/22 23:00 Nasal Cannula 4 11/25/22 22:35 11/25/22 22:25 Nasal Cannula 4 11/25/22 22:15 Nasal Cannula 4 Laboratory Results Cardiac Enzymes 11/26/22 Range/Units 06:24 AST 47 H (13-39) U/L CBC 11/26/22 Range/Units 06:24 WBC 11.04 H (4.8-10.8) K/ul RBC 3.72 L (4.70-6.10) M/uL Hgb 11.7 L (14.0-18.0) g/dl Hct 34.1 L (42.0-52.0) % Plt Count 180 (130-400) K/uL Neut # (Auto) 9.98 H (1.40-6.50) K/uL Lymph # (Auto) 0.29 L (1.2-3.4) K/uL [place] # (Auto) 0.72 H (0.11-0.59) K/uL Eos # (Auto) 0.00 (0-0.50) K/uL Baso # (Auto) 0.01 (0-0.2) K/uL Comprehensive Metabolic Panel 11/26/22 Range/Units 06:24 Sodium 135 L (136-145) mmol/L Potassium 4.6 (3.5-5.1) mmol/L Chloride 103 (98-107) mmol/L Carbon Dioxide 24 (21-32) mmol/L BUN 20 (6-23) mg/dl Creatinine 1.38 (0.6-1.4) mg/dl Glucose 197 H (70-99(Fasting)) mg/dl Calcium 8.3 L (8.6-10.3) mg/dl AST 47 H (13-39) U/L ALT 41 (7-52) U/L Alkaline Phosphatase 50 (34-104) U/L Total Protein 6.3 (6.0-8.3) gm/dl Albumin 3.5 (3.4-5.0) gm/dl Intake and Output 11/25/22 11/26/22 11/26/22 22:59 06:59 14:59 Intake Total 1900 / 3119.833 1099.833 / 3119.833 1630.167 / 1630.167 Output Total 45 / 300 255 / 300 Balance 1855 / 2819.833 844.833 / 2819.833 1630.167 / 1630.167 Intake: IV 1100 / 1929.833 709.833 / 6352.164 1873.167 / 1630.167 Acetaminophen 1,000 mg In 100 100 / 200 100 / 200 ml @ 400 mls/hr IV Q8H PRN Rx#: [id number] Piperacillin/Tazobactam 4.5 gm 240 / 360 In Dextrose 5% 100 ml @ 30 mls/ hr IV Q8H [facility] Rx#:[id number] Sodium Chloride 0.9% 1000ML 1, 1000 / 1369.833 369.833 / 8832.199 6070.167 / 1630.167 000 ml @ 70 mls/hr IV .[id number] [facility] Rx#:[id number] IV Perioperative 800 / 800 Oral 390 / 390 Output: Urine 175 / 175 Estimated Blood Loss 35 / 35 Drain Output 80 / 90 Abdomen ENRIQUE 80 / 90 Other: Weight 111 kg 111.5 kg Weight Measurement Method Built in [facility]
--- NOTE | 2022-11-26 12:24 | Surgery Progress Note ---
Date of Service November 26, 2022 Assessment & Plan (1) Acute cholecystitis: Plan: POD 1 s/p lap cholecystectomy Continue to monitor ENRIQUE drainage No therapeutic anticoagulation at this time Continue antibiotics Obtain am labs incentive spirometer Ambulate Admission and Anticipated Discharge Date Admission Date: November 24, 2022 Subjective Patient seen this AM. Says he is feeling improved. Does admit to some mild soreness of the right upper quadrant. Denies chest pain or shortness of breath Physical Exam Constitutional: + obese, cooperative and comfortable; no acute distress and not lethargic Respiratory: + uses accessory muscles; no respiratory distress, no labored breathing and no cough Gastrointestinal (Abdomen): ENRIQUE drain in place. There is a small amount of dark, old bloody drainage. 90mL output recorded by nursing o/n. Results & Data Vital Signs (Past 12 Hours) Vital Signs Temp Pulse Pulse Resp BP Pulse Ox O2 Del Method 11/26/22 10:37 36.5 C 74 18 123/65 91 Nasal Cannula 11/26/22 09:34 Room Air 11/26/22 07:27 79 11/26/22 07:13 36.8 C 80 18 120/65 93 Nasal Cannula 11/26/22 06:19 36.9 C 74 18 117/62 93 Nasal Cannula 11/26/22 04:17 36.7 C 75 20 117/70 93 Nasal Cannula O2 Flow Rate 11/26/22 10:37 4 11/26/22 09:34 11/26/22 07:27 11/26/22 07:13 4 11/26/22 06:19 2 11/26/22 04:17 4 PG Care Time/CCT Total # of Minutes Spent Total Time Spent with Patient: Total time spent is greater than 50% in coordination of care (as documented) at patient's floor/unit and/or counseling patient: Coding Level of Care Code 39419 SUB INP/OBS CARE 09/23MIN Diagnoses Acute cholecystitis K81.0
--- NOTE | 2022-11-26 17:33 | Hospitalist Progress Note ---
Date of Service November 26, 2022 Assessment & Plan (1) Acute cholecystitis: Plan: 82 yo male with PMHx of HTN, CAD s/p CABG, GERD, diastolic CHF, SSS s/p permanent pacemaker, h/o afib and flutter on eliquis, HLD, PEGGY on cpap, and BPH presents for 1 day RUQ pain with radiation into chest. Evidence of acute cholecystitis on CT abd/pel and on US with elevated LFTs -s/p lap florencio on 11/25-delayed initially due to taking Eliquis; LFTs trending downward, feels better -doing well post-op, ENRIQUE drain in place -dc IVFs -tolerating clear liquids--> advance to heart healthy diet -continue IV Zosyn due to bad infection seen intraoperatively -follow CBC, CMP in AM -Appreciate Surgery management CAD s/p CABG #HFpEF #HTN -chest pain likely radiating from RUQ. Low concern for ACS. Troponin peaked, 28. EKG without ischemic changes. -cont. ASA, statin, metoprolol, losartan, amlodipine, and can now restart lasix and spironolactone for tomorrow #sinus sick syndrome s/p permanent pacemaker #h/o afib and flutter -remains in sinus rhythm on tele -continue to hold eliquis post op until ok with Surgery -remain on tele -continue metoprolol #GERD -cont. famotidine but convert back to po #HLD -cont. statin #BPH-no acute issues -cont. terazosin DVT ppx: SCDs Code Status: Full Dispo:continued stay med tele, possible dc to home tomorrow (2) CAD (coronary artery disease): (3) Dyslipidemia: (4) GERD (gastroesophageal reflux disease): (5) HTN (hypertension): (6) PEGGY (obstructive sleep apnea): (7) Atrial flutter: Admission and Anticipated Discharge Date Admission Date: November 24, 2022 Subjective Pt feeling well today, some soreness at surgical site. No PC, SOB, nausea. Is passing flatus but no BM. Has ENRIQUE drain in place. Tele with NSR, rate 70-80s Feeling hungry and tolerating clear liquids Physical Exam Constitutional: WD/WN, vitals as above Respiratory: normal respiratory effort, lungs clear to auscultation Cardiovascular: Rate/Rhythm: regular rate and regular rhythm Heart Sounds: no murmur Extremities: no edema Gastrointestinal (Abdomen): Inspection/Auscultation: + abdomen abnormal to inspection (ENRIQUE drain RUQ with serosang fluid) and abdomen not distended Percussion/Palpation: + abdomen tender (mild RUQ) and abdomen soft; no guarding Skin: chronic venous stasis changes of legs Psychiatric: A+Ox3, euthymic affect Results & Data Results & Data Vital Signs (Past 12 Hours) Vital Signs Temp Pulse Pulse Resp BP BP Pulse Ox 11/26/22 15:24 36.6 C 80 18 136/69 90 11/26/22 15:05 80 11/26/22 10:37 36.5 C 74 18 123/65 91 11/26/22 09:34 11/26/22 07:27 79 11/26/22 07:13 36.8 C 80 18 120/65 93 11/26/22 06:19 36.9 C 74 18 117/62 93 O2 Del Method O2 Flow Rate 11/26/22 15:24 Room Air 11/26/22 15:05 11/26/22 10:37 Nasal Cannula 4 11/26/22 09:34 Room Air 11/26/22 07:27 11/26/22 07:13 Nasal Cannula 4 11/26/22 06:19 Nasal Cannula 2 Laboratory Results CBC, CMP, BCxs reviewed PG Care Time/CCT Total # of Minutes Spent Total Time Spent with Patient: Total time spent is greater than 50% in coordination of care (as documented) at patient's floor/unit and/or counseling patient: Coding Level of Care Code 77745 SUB INP/OBS CARE 2/35MIN Diagnoses Acute cholecystitis K81.0 CAD (coronary artery disease) I25.10 Dyslipidemia E78.5 GERD (gastroesophageal reflux disease) K21.9 HTN (hypertension) I10 PEGGY (obstructive sleep apnea) G47.33 Atrial flutter I48.92
[2022-11-26] MEDS ORDERED: oxyCODONE HCL IR 5 MG TAB (IMMEDIATE RELEASE) PO PRN (17:35)
[2022-11-26] MEDS: METOPROLOL SUCC 25MG EXT REL TAB PO SCH (20:50)
[2022-11-26] MEDS: ATORVASTATIN 40 MG TAB PO SCH (20:50)
[2022-11-26] MEDS: TERAZOSIN HCL 1 MG CAP PO SCH (20:50)
[2022-11-26] MEDS: ASPIRIN 81 MG ECTAB PO SCH (20:50)
[2022-11-26] MEDS ORDERED: ALBUT/IPRATROP 3MG/0.5MG NEB 3 ML VIAL NEB PRN (21:12)
[2022-11-27] MEDS: ACETAMINOPHEN 325 MG TAB PO PRN ×3 (02:46→15:09)
[2022-11-27] MEDS: PIPERACILLIN/TAZOBACTAM 4.5 GM in DEXTROSE 5% 100 ML IV SCH ×3 (03:20→17:31)
[2022-11-27 08:03] LABS: Basophils # (auto) 0.02 K/uL (0-0.2); Basophils % (auto) 0.2 %; Eosinophils # (auto) 0.02 K/uL (0-0.50); Eosinophils % (auto) 0.2 %; Hematocrit (blood only) 32.4 % (42.0-52.0); Immature Granulocytes # (auto) 0.05 K/uL (0.01-0.20); Immature Granulocytes % (auto) 0.6 %; Lymphocytes # (auto) 0.64 K/uL (1.2-3.4); Lymphocytes % (auto) 7.3 %; Mean Corpuscular Hemoglobin 31.2 pg (25.0-34.0); Mean Corpuscular Volume 91.8 fL (80.0-100.0); Mean Platelet Volume 8.9 fL (9.4-12.4); Monocytes # (auto) 0.77 K/uL (0.11-0.59); Monocytes % (auto) 8.8 %; Neutrophils % (auto) 82.9 %; Platelet Count 201 K/uL (130-400); RDW Coefficient of Variation 12.8 % (11.5-14.5); RDW Standard Deviation 43.2 fL (36.4-46.3); Red Blood Count 3.53 M/uL (4.70-6.10)
[2022-11-27] MEDS: amLODIPine BESYLATE 5 MG TAB PO SCH (08:06)
[2022-11-27] MEDS: LOSARTAN POTASSIUM 50 MG TAB PO SCH (08:06)
[2022-11-27] MEDS: SPIRONOLACTONE 25 MG TAB PO SCH (08:06)
[2022-11-27] MEDS: FUROSEMIDE 20 MG TAB PO SCH (08:06)
--- NOTE | 2022-11-27 08:10 | Surgery Progress Note ---
I have seen and examined this patient with the surgical PA. I agree with the plan. Encouraged protein intake/supplement. H/H drifted down slightly today. No Eliquis as of yet. Patient remains on ASA. Recommend not starting injection therapeutic anticoagulation yet either until H/H is completely stable. See me in the office next week to discuss resuming Eliquis to check the drainage from the ENRIQUE and blood counts. If his admitting medical team plans to keep the him until tomorrow, f/u am H/H. If this is stable, the patient may start therapeutic Lovenox injections on Wednesday (provided the patient has not seen any new or increased bloody drainage from his ENRIQUE drain after getting home) as a bridge to eventually resuming his Eliquis which will be determined in the office next week. If his H/H is not stable in the am, do not plan to initiate Lovenox on Wednesday until H/H can be repeated early next week and his drain can be re-evaluated in the office. Date of Service November 27, 2022 Assessment & Plan (1) Acute cholecystitis: Plan: POD#2 lap florencio WBC 8, Hbg stable at 11 (11.7). vital signs stable, on room air Incisions c/d/i some ecchymosis of epigastric incision. ENRIQUE drain serousang with 35 cc documented over last 24 hours Tolerating a diet, no n/v. starting to pass flatus Will discuss with surgeon timing on removal of ENRIQUE and when to resume eliquis upon time of discharge he will need f/u with Dr. Correa in clinic within 1-2 weeks time Admission and Anticipated Discharge Date Admission Date: November 24, 2022 Subjective Patient is feeling well. Some mild pain mostly at upper incision site, but is manageable with tylenol. He is tolerating a diet, no nausea/vomiting. Passing flatus and believes he feels like he may have a BM soon. Physical Exam Physical Exam: awake/alert, no distress. ambulating in bedroom without difficulty Gastrointestinal (Abdomen): Inspection/Auscultation: + abdomen distended (likely baseline, obese abdomen), + abdominal surgical incision (c/d/i with skin glue, some surrounding ecchymosis of epigastric incision) and + abdominal surgical drain present (serousang- 35 cc documented) Percussion/Palpation: + abdomen tender (expected kallie incisional discomfort) and abdomen soft Results & Data Vital Signs (Past 12 Hours) Vital Signs Temp Pulse Pulse Resp BP BP Pulse Ox 11/27/22 07:54 36.6 C 85 20 129/67 91 11/27/22 07:23 73 11/27/22 03:15 37.1 C 82 20 124/63 92 11/26/22 22:19 79 11/26/22 23:10 36.6 C 85 18 148/70 H 90 11/26/22 20:45 77 111/52 L 94 O2 Del Method O2 Flow Rate 11/27/22 07:54 Room Air 11/27/22 07:23 11/27/22 03:15 Room Air, CPAP 11/26/22 22:19 11/26/22 23:10 BiPAP 11/26/22 20:45 Nasal Cannula 2 PG Care Time/CCT Total # of Minutes Spent Total Time Spent with Patient: Total time spent is greater than 50% in coordination of care (as documented) at patient's floor/unit and/or counseling patient: Coding Level of Care Code 34729 Post Operative Follow-Up Diagnoses Acute cholecystitis K81.0
[2022-11-27 08:25] LABS: Albumin Globulin Ratio 1.2 (0.9-2); Albumin Level 3.3 gm/dl (3.4-5.0); BUN Creatinine Ratio 14.4 (10-20); Bilirubin,Total 0.8 mg/dl (0.2-1.0); Calcium 8.2 mg/dl (8.6-10.3); Creatinine Clr Calc Pharmacy 48.8 ml/min; Est GFR (African American) 48.7 ml/min; Globulin 2.8 gm/dl (2.5-4.0); Magnesium 2.1 mg/dl (1.7-2.4); Potassium 4.1 mmol/L (3.5-5.1); Total Protein 6.1 gm/dl (6.0-8.3)
[2022-11-27] MEDS: FAMOTIDINE 20 MG TAB PO SCH (08:56)
--- NOTE | 2022-11-27 09:34 | Hospitalist Progress Note ---
Date of Service November 27, 2022 Assessment & Plan (1) Acute cholecystitis: Plan: 82 yo male with PMHx of HTN, CAD s/p CABG, GERD, diastolic CHF, SSS s/p permanent pacemaker, h/o Afib and Aflutter on eliquis, HLD, PEGGY on CPAP, and BPH admitted for acute cholecystitis s/p cholecystectomy. Acute cholecystitis: -S/p lap florencio on 11/25-delayed initially due to taking Eliquis; LFTs trending downward, continues to feel better -Has ENRIQUE drain in place which will remain on discharge until seen in outpatient follow-up by surgery, hemoglobin 11.0 today relatively stable this admission -Tolerating heart healthy diet -Continue IV Zosyn while admitted, with ultimate transition to p.o. Augmentin twice daily for total of 7 days of antibiotic treatment given severity of abdominal infection -WBC count 11-> 8.80 today -Surgery consulted and also following patient, will need 1 week follow-up on discharge (2) Atrial flutter: Plan: -History of sick sinus syndrome with pacemaker -Remains in sinus rhythm on telemetry -Plan to start daily Lovenox for DVT prophylaxis on day of discharge per surgical recommendations, to resume Eliquis after evaluated in outpatient appointment by surgery -Continue daily metoprolol (3) CAD (coronary artery disease): Plan: -History of, as well as HFpEF, HLD, HTN. No chest pain at this time, did have radiating pain from the right upper quadrant with low concern for ACS throughout admission -EKG without ischemic changes -Continue ASA, statin, metoprolol, losartan, amlodipine, Lasix, and spironolactone -Creatinine 1.53 today, mild elevation from yesterday however not true FIOR, continue to monitor (4) HTN (hypertension): Plan: See above (5) Dyslipidemia: Plan: See above (6) GERD (gastroesophageal reflux disease): Plan: -Continue famotidine daily (7) PEGGY (obstructive sleep apnea): Plan: -Nightly CPAP Admission and Anticipated Discharge Date Admission Date: November 24, 2022 Subjective No acute overnight events, patient does endorse some intermittent abdominal pain with movements at his incision sites, but in no way as bad as it was before he came into the hospital. No associated nausea, no chest pain or shortness of breath. Some ENRIQUE drainage. No fevers. Review of Systems Review of Systems: All systems reviewed & are unremarkable except as noted in Subjective Physical Exam Constitutional: WD/WN, vitals as above Respiratory: normal respiratory effort, lungs clear to auscultation Cardiovascular: RRR, no murmur, no edema Gastrointestinal (Abdomen): normal bowel sounds, soft, nontender, no hepatosplenomegaly ENRIQUE drain with serosanguineous fluid, small amount Skin: no rashes, warm and dry Abdominal laparoscopic incisions clean and dry, minimal surrounding erythema Psychiatric: A+Ox3, euthymic affect Results & Data Results & Data Vital Signs (Past 12 Hours) Vital Signs Temp Pulse Pulse Resp BP BP Pulse Ox 11/27/22 07:54 36.6 C 85 20 129/67 91 11/27/22 07:23 73 11/27/22 03:15 37.1 C 82 20 124/63 92 11/26/22 22:19 79 11/26/22 23:10 36.6 C 85 18 148/70 H 90 O2 Del Method 11/27/22 07:54 Room Air 11/27/22 07:23 11/27/22 03:15 Room Air, CPAP 11/26/22 22:19 11/26/22 23:10 BiPAP PG Care Time/CCT Total # of Minutes Spent Total Time Spent with Patient: Total time spent is greater than 50% in coordination of care (as documented) at patient's floor/unit and/or counseling patient: Coding Level of Care Code 42499 SUB INP/OBS CARE 3/50MIN Diagnoses Acute cholecystitis K81.0 Atrial flutter I48.92 CAD (coronary artery disease) I25.10 HTN (hypertension) I10 Dyslipidemia E78.5 GERD (gastroesophageal reflux disease) K21.9 PEGGY (obstructive sleep apnea) G47.33
[2022-11-27] MEDS ORDERED: MoRPHine SULFATE 4 MG/ML 1 ML CARP\\VIAL IV PRN (14:06)
[2022-11-27] MEDS ORDERED: PSYLLIUM or GUAR GUM FIBER POWDER PACKET PO ONE (18:15)
[2022-11-27] MEDS: METOPROLOL SUCC 25MG EXT REL TAB PO SCH (20:31)
[2022-11-27] MEDS: ASPIRIN 81 MG ECTAB PO SCH (20:31)
[2022-11-27] MEDS: TERAZOSIN HCL 1 MG CAP PO SCH (20:32)
[2022-11-27] MEDS: ATORVASTATIN 40 MG TAB PO SCH (20:33)
[2022-11-28] MEDS: PIPERACILLIN/TAZOBACTAM 4.5 GM in DEXTROSE 5% 100 ML IV SCH ×2 (02:14→09:10)
[2022-11-28] MEDS: ACETAMINOPHEN 325 MG TAB PO PRN (05:08)
[2022-11-28 07:36] LABS: Hematocrit (blood only) 32.3 % (42.0-52.0); Hemoglobin 10.7 g/dl (14.0-18.0); Mean Corpuscular Hgb Conc 33.1 g/dL (32.0-36.0); Mean Corpuscular Volume 93.6 fL (80.0-100.0); Mean Platelet Volume 8.8 fL (9.4-12.4); Platelet Count 210 K/uL (130-400); RDW Coefficient of Variation 12.8 % (11.5-14.5); RDW Standard Deviation 44.1 fL (36.4-46.3); Red Blood Count 3.45 M/uL (4.70-6.10)
[2022-11-28 07:55] LABS: Albumin Globulin Ratio 1.2 (0.9-2); Albumin Level 3.3 gm/dl (3.4-5.0); BUN Creatinine Ratio 14.3 (10-20); Bilirubin,Total 0.8 mg/dl (0.2-1.0); Calcium 8.4 mg/dl (8.6-10.3); Creatinine Clr Calc Pharmacy 50.7 ml/min; Est GFR (African American) 51.1 ml/min; Est GFR (Non-African American) 44.1 ml/min; Globulin 2.8 gm/dl (2.5-4.0); Potassium 3.8 mmol/L (3.5-5.1); Total Protein 6.1 gm/dl (6.0-8.3)
--- NOTE | 2022-11-28 08:58 | Surgery Progress Note ---
Date of Service November 28, 2022 Assessment & Plan (1) Hx laparoscopic cholecystectomy: Plan: Doing well. H&H stable. ENRIQUE looks good. Okay from our standpoint for discharge to home. Follow-up with Dr. Perla Franklin in 1 week. Admission and Anticipated Discharge Date Admission Date: November 24, 2022 Subjective Patient seen. Feeling well. Tolerating diet. Would like to go home. Physical Exam Physical Exam: Alert. No acute distress Abdomen is soft with expected incisional tenderness. ENRIQUE looks good with small amount of serous fluid Results & Data Vital Signs (Past 12 Hours) Vital Signs Temp Pulse Pulse Resp BP Pulse Ox O2 Del Method 11/28/22 07:53 36.6 C 74 18 110/65 91 Room Air 11/28/22 03:23 37.5 C 92 H 18 126/68 91 Room Air 11/28/22 00:00 93 H 11/27/22 23:22 37.6 C H 85 18 123/69 90 CPAP 11/27/22 21:00 Room Air PG Care Time/CCT Total # of Minutes Spent Total Time Spent with Patient: Total time spent is greater than 50% in coordination of care (as documented) at patient's floor/unit and/or counseling patient: Coding Level of Care Code 31098 Post Operative Follow-Up Diagnoses Hx laparoscopic cholecystectomy Z90.49
[2022-11-28] MEDS ORDERED: PSYLLIUM or GUAR GUM FIBER POWDER PACKET PO SCH (09:00)
[2022-11-28] MEDS ORDERED: ENOXAPARIN INJ 40 MG/0.4 ML SYR SQ SCH (09:00)
[2022-11-28] MEDS ORDERED: ENOXAPARIN 1 MG/KG SQ SCH (09:00)
[2022-11-28] MEDS: SPIRONOLACTONE 25 MG TAB PO SCH (09:08)
[2022-11-28] MEDS: FAMOTIDINE 20 MG TAB PO SCH (09:08)
[2022-11-28] MEDS: FUROSEMIDE 20 MG TAB PO SCH (09:08)
[2022-11-28] MEDS: LOSARTAN POTASSIUM 50 MG TAB PO SCH (09:09)
[2022-11-28] MEDS: amLODIPine BESYLATE 5 MG TAB PO SCH (09:09)
--- NOTE | 2022-11-28 09:09 | Discharge Summary ---
Discharge Summary Date of Service November 28, 2022 Admission Exam Per Admitting Provider Constitutional: in no acute distress, pleasant. AOx3. Vitals as above. HEENT: No scleral injection or discharge. Moist mucous membranes. Neck: Supple without lymphadenopathy or thyromegaly. Trachea midline. Lungs: Clear to auscultation bilaterally with good effort. Cardiac: Regular rate and rhythm. No murmurs. Trace lower extremity edema. 2+ peripheral distal pulses. Abdomen: Bowel sounds present. Distended. Soft. RUQ tenderness. No guarding. +stoner's MSK: No cyanosis or clubbing. Extremities motor strength 5/5. Skin: venous stasis changes bilateral lower extremities Neurologic: no focal deficits Principal Dx & Hospital Course #1 = Principal Diagnosis (1) Acute cholecystitis: 82 yo male with PMHx of HTN, CAD s/p CABG, GERD, diastolic CHF, SSS s/p permanent pacemaker, h/o Afib and Aflutter on eliquis, HLD, PEGGY on CPAP, and BPH admitted for acute cholecystitis s/p cholecystectomy. Acute cholecystitis: -S/p lap florencio on 11/25-delayed initially due to taking Eliquis; LFTs trending downward, continues to feel better -Has ENRIQUE drain in place which will remain on discharge until seen in outpatient follow-up by surgery, hemoglobin 11.0 today relatively stable this admission -Tolerating heart healthy diet -Continue IV Zosyn while admitted, with ultimate transition to p.o. Augmentin twice daily on discharge today for total of 7 days of antibiotic treatment -WBC count 11-> 7.6 on day of discharge -Surgery follow-up 1 week post discharge (2) Atrial flutter: -History of sick sinus syndrome with pacemaker -Remains in sinus rhythm on telemetry -Discharged on Lovenox 110 mg subcu twice daily therapeutic dosing with close monitoring by surgery regarding ENRIQUE drain output and blood counts, to ultimately resume Eliquis when able -Continue daily metoprolol (3) CAD (coronary artery disease): -History of, as well as HFpEF, HLD, HTN. No chest pain at this time, did have radiating pain from the right upper quadrant with low concern for ACS throughout admission -EKG without ischemic changes -Continue ASA, statin, metoprolol, losartan, amlodipine, Lasix, and spironolactone -Creatinine 1.47, near baseline since around January (4) HTN (hypertension): See above (5) Dyslipidemia: See above (6) GERD (gastroesophageal reflux disease): -Continue famotidine daily (7) PEGGY (obstructive sleep apnea): -Nightly CPAP Discharge Exam Constitutional WD/WN, vitals as above Respiratory Nontachycardic no murmurs Gastrointestinal (Abdomen) normal bowel sounds, soft, nontender, no hepatosplenomegaly Psychiatric A+Ox3, euthymic affect Updated Medication List Medication Instructions Recorded Confirmed Type biotin 1 mg tablet 1 mg PO QAM 06/15/19 11/24/22 History coenzyme Q10 200 mg capsule 200 mg PO QAM 06/15/19 11/24/22 History multivitamin (Daily Multi-Vitamin 0.5 tab PO BID 06/15/19 11/24/22 History tablet) nitroglycerin 0.4 mg sublingual 0.4 mg sublingual UD PRN Angina 06/15/19 11/24/22 History tablet triamcinolone acetonide 0.1 % 1 applic topical UD PRN Rash #1 g 06/15/19 11/24/22 History topical ointment zinc 50 mg tablet 50 mg PO QAM 06/15/19 11/24/22 History ascorbic acid (vitamin C) 1,000 mg 1 g PO QAM 11/30/19 11/24/22 History tablet (Vitamin C) psyllium husk 3.4 gram/5.4 gram 2 tsp PO QAM 11/30/19 11/24/22 History oral powder (Metamucil) acetaminophen 500 mg tablet 500 mg PO Q6H PRN Pain 02/05/20 11/24/22 History (Tylenol Extra Strength) amlodipine 5 mg tablet 5 mg PO QAM 02/05/20 11/24/22 History furosemide 20 mg tablet (Lasix) 20 mg PO QAM 01/07/21 11/24/22 History spironolactone 25 mg tablet 25 mg PO QAM 01/07/21 11/24/22 History (Aldactone) aspirin 81 mg tablet,delayed 81 mg PO HS 05/14/21 11/24/22 History release (Chanelle Low Dose Aspirin) potassium chloride 10 mEq 10 meq PO TID 05/14/21 11/24/22 History capsule,extended release losartan 100 mg tablet (Cozaar) 100 mg PO QAM #90 tabs 04/17/22 11/24/22 Rx albuterol sulfate 90 mcg/actuation 2 puff inhalation Q4H PRN 09/24/22 11/24/22 Rx aerosol inhaler shortness of breath or wheezing #8.5 grams atorvastatin 40 mg tablet 40 mg PO HS #90 tabs 10/05/22 11/24/22 Rx famotidine 20 mg tablet (Pepcid) 20 mg PO BID #180 tabs 10/05/22 11/24/22 Rx terazosin 2 mg capsule 4 mg PO DAILY #180 caps 10/08/22 11/24/22 Rx metoprolol succinate 25 mg 37.5 mg PO HS 11/24/22 11/24/22 History tablet,extended release 24 hr amoxicillin 875 mg-potassium 1 tab PO BID #14 tabs 11/28/22 Rx clavulanate 125 mg tablet enoxaparin 120 mg/0.8 mL 110 mg (0.7333 mL) subcut Q12H 5 11/28/22 Rx subcutaneous syringe days #7.333 mL Hospital Stay Data Consultations 11/24/22 03:01 ED Decision to Admit Stat 11/24/22 15:50 Consult Cardiology Routine Consult General Surgery Routine Procedures Performed Operation Date: 11/25/22 19:00 Actual Procedures p Laparoscopic Cholecystectomy(Not Applicable) - Phoebe Correa DO Diagnostic Imagining Performed 11/24/22 01:19 CT abd pelvis IV con only Stat 11/24/22 03:22 US gallbladder Stat Pending Results Patient Have Any Pending Studies at Discharge: Yes Discharge Instructions Given to Patient (Per Discharging Provider) You were admitted for infection of your gallbladder. You got IV antibiotics, and had your gallbladder out. You will continue antibiotics that were sent to [facility] one pill every 12 hours starting this evening. I also prescribed blood thinner medication until you can see your surgeon, as you should not take your Eliquis until seen by them. I prescribed 7 days worth of Lovenox (also called enoxaparin), 110 milligrams every 12 hours injection, for you to start at home this evening. This medication was sent to [facility] in [place] as [facility] did not have it. You should call the surgeon office Wednesday to get an appointment for this upcoming week to see them. Because you are on a blood thinner, be extra careful with walking and any activities as blood thinners put you at increasing bleeding risk if you fall. If you fall and hit your head on blood thinners, you should be evaluated by a doctor right away. Follow up with your primary care doctor as well, in case you need more Lovenox or have other concerns. If you have acute concerns for your health, please return to the hospital for evaluation. Total Time Total Time Spent Total Time Spent (In Minutes): 45 minutes Coding Level of Care Code 89160 INP/OBS DISCH >30 MIN Diagnoses Acute cholecystitis K81.0 Atrial flutter I48.92 CAD (coronary artery disease) I25.10 HTN (hypertension) I10 Dyslipidemia E78.5 GERD (gastroesophageal reflux disease) K21.9 PEGGY (obstructive sleep apnea) G47.33
[2022-11-28] MEDS ORDERED: ENOXAPARIN INJ 120 MG/0.8 ML SYR SQ SCH (09:30)
== END 2022-11-28 13:37 | disposition home or self-care (01) | DRG 418 ==
LOC: ED 22:04 → SUATTDRO 11-24 04:29 → EDINP 11-24 04:29 → 2N 11-24 05:55